=== PATIENT | male | born 1935 | race Caucasian/White ===

== ENCOUNTER → 2016-06-04 | Outpatient (CLI) | payer MEDICARE, OTHER ==
[2016-06-04 14:09] LABS: Appearance,Urine Clear (Clear); Bilirubin,Urine Negative (Negative); Glucose,Urine (UA) Negative (Negative); Ketones,Urine Negative (Negative); Leukocyte Esterase,Urine Negative (Negative); Nitrite,Urine Negative (Negative); PH, Urine 6.5 (5.0-8.0); Protein,Urine Negative (Negative); Specific Gravity,Urine 1.009 (1.001-1.035); UA Billing (MACRO vs. MICRO) CHEM; Urobilinogen,Urine <2.0 mg/dL (<2.0)
[2016-06-04 14:15] LABS: INR 1.1 (<1.1); Partial Thromboplastin Time 24.9 sec (22.0-30.0); Prothrombin Time 10.8 sec (9.0-12.0)
[2016-06-04 14:19] LABS: Basophils % (A) 1 %; CHCM 32.6; Eosinophils # (A) 0.1 k/uL (0-0.7); Eosinophils % (A) 1 %; HCT 45.6 % (39.0-53.0); HDW 2.33; HGB 14.3 gm/dL (13.0-17.5); Luc # (Auto) 0.23; Luc % (Auto) 3; Lymphocytes # (A) 1.3 k/uL (1.0-4.8); Lymphocytes % (A) 18 %; MCHC 31.4 g/dL (31.0-37.0); MCV 95.6 fL (80.0-100.0); Mean Platelet Volume 7.5; Monocytes # (A) 0.4 k/uL (0-1.0); Monocytes % (A) 6 %; Neutrophils % (A) 71 %; RBC 4.77 m/uL (4.30-5.90); RDW 13.2 % (11.5-15.5)
[2016-06-04 14:26] LABS: ALT 32 U/L (21-72); AST 29 U/L (17-59); Alkaline Phosphatase 72 U/L (38-126); Anion Gap 9 mmol/L; Blood Urea Nitrogen 20 mg/dL (9-20); Calcium 9.4 mg/dL (8.4-10.2); Carbon Dioxide 28 mmol/L (22-30); Chloride 101 mmol/L (98-107); Glucose 74 mg/dL (74-99); Non-African American GFR(MDRD) >60 (>60 ml/min/1.73 sqM); Potassium 4.5 mmol/L (3.5-5.1); Sodium 138 mmol/L (137-145); Total Bilirubin 0.9 mg/dL (0.2-1.3); Total Protein 6.8 g/dL (6.3-8.2)
== END | disposition home or self-care (01) ==
LOC: LABPAT 13:26
PROVIDERS: ATTEND Orthopaedic Surgery Sports Medicine
DX: Z01.812 Encounter for preprocedural laboratory examination (principal)
CPT/HCPCS: 80053; 81003; 85025; 85610; 85730; 87070

== ENCOUNTER 2016-06-12 09:40 | Inpatient (IN) | payer MEDICARE, OTHER ==
[2016-06-05 11:58] VITALS: BMI 27.2
--- NOTE | 2016-06-08 20:05 | CONS ---
DATE OF CONSULTATION: Consultation regarding preop medical evaluation. HISTORY OF PRESENT ILLNESS: This gentleman, 80-years of age is scheduled to undergo right shoulder arthroplasty. The patient has significant degenerative arthritis and has been scheduled for replacement of the joint. The patient is seen preoperatively. Past medical history is primarily significant for hyperlipidemia, hypothyroidism, history of depression on medical therapy controlled, history of BPH, varicose veins and previous thrombophlebitis and DVT. He has significant varicose veins. He does also have degenerative arthritis. Otherwise, no history of hypertension, diabetes, lung disease, liver disease, kidney disease, ulcers, TB, hepatitis, rheumatic fever. No history of myocardial infarction or CVA. PAST SURGICAL HISTORY: Significant for appendectomy, bilateral cataract surgery, C7 laminectomy, left ankle ORIF. PERSONAL HISTORY: Nonsmoker. Alcohol occasional. VACCINATIONS: Has refused. MEDICATIONS: 1. Zoloft 125 mg daily. 2. Wellbutrin SR 150 mg daily. 3. Aricept 5 mg daily. 4. Namenda 5 mg daily. 5. Levothyroxine 50 mcg daily. SOCIAL HISTORY: Patient is and lives with spouse. He stays fairly active. FAMILY MEDICAL HISTORY: Father at the age of 75 of history of unspecified lung condition. Mother at the age of 102 ASHD. The patient has a brother 78 in adequate health. He has 3 sons 56 and 45, 45 in all in good health. ALLERGIES: None known. REVIEW OF SYSTEMS: NEURO: Denies any headaches, dizziness. No double vision, blurred vision. No symptoms of TIA, syncope, seizures. PSYCH: History of anxiety, depression. CARDIAC: No chest pain, angina, palpitation. RESPIRATORY: No shortness of breath, cough, hemoptysis. GI: No nausea, vomiting, abdominal pain, diarrhea. : No symptoms of dysuria, hematuria, urgency, frequency. Some nocturia. EXTREMITIES: Denies edema. Does have some pain, especially at the right shoulder and multiple other arthritic symptoms. NEUROLOGICALLY: Awake, alert, oriented x3 with well coordinated movements. SKIN: Has some venostasis pigmentations. HEENT: Adequate hearing, smell, taste. EYES: Adequate vision. PHYSICAL EXAMINATION: Pleasant gentleman in no distress. Vital signs revealed blood pressure 120/70. He is 5 feet 9 inches tall, weighs 191 pounds, BMI 28.2. HEENT: Normocephalic. NECK: Supple. Pupils reactive. Nostrils clear. Oral cavity moist. Dentition maintained. Ears reveal no drainage. NECK: No JVD, carotid bruits, or thyromegaly. CHEST EXAMINATION: Clear to auscultation. Aortic sclerosis murmur with normally S1, S2. ABDOMEN: Soft, no palpable masses. Bowel sounds normal. No organomegaly. No abdominal bruits. EXTREMITIES: Trace edema at the ankles. NEUROLOGICALLY: Awake, not oriented x3 with well coordinated movements. Decreased to range of motion at the shoulder joint especially right. LABORATORY ASSESSMENT: Pending. Stress echo reveals good exercise tolerance, inconclusive EKG part of the stress due to baseline EKG abnormalities and negative stress echocardiogram at 81%. EKG revealed occasional PACs and complete right bundle-branch block. ASSESSMENT: 1. Hypothyroidism, on medical therapy. 2. History of chronic anxiety, depression, controlled. 3. Benign prostatic hypertrophy. 4. Degenerative arthritis. PLAN: The patient is stable. Continue present medical regimen. Patient is stable to undergo the planned surgical procedure. Patient not to take any medication on the morning of surgery. All nonsteroidals have been on hold prior to surgery.
[~2016-06-12 09:40] MED LIST: ACETAMINOPHEN TAB 500 MG TAB PO ONE; CLINDAMYCIN 900 MG in DEXTROSE 5% IN WATER 50 ML IVPB ONE; DEXAMETHASONE SOD PHOSPHATE 10 MG/ML 1 ML VIAL IV ONE; HYDROmorphone 1 MG/ML 1 ML SYRINGE IVP PRN; LIDOCAINE 1% 20 ML VIAL (10MG/ML) FOR IV START INTRADERMA PRN; MELOXICAM 7.5 MG TAB PO ONE; MIDAZOLAM 2 MG/2 ML VIAL IV PRN; ONDANSETRON 4 MG/2 ML VIAL IVP ONE; SCOPOLAMINE 1.5MG/72HR PATCH TRANSDERM ONE; TRANEXAMIC ACID 1,000 MG in SODIUM CHLORIDE 0.9% 100 ML IVPB ONE
[2016-06-12] MEDS ORDERED: LIDOCAINE 1% 20 ML VIAL (10MG/ML) FOR IV START INTRADERMA ONE (09:59)
[2016-06-12] MEDS: LACTATED RINGERS 1,000 ML IV SCH ×2 (10:00→17:42)
[2016-06-12] MEDS ORDERED: VANCOMYCIN 1,000 MG in SODIUM CHLORIDE 0.9% 250 ML IVPB STA (10:00)
[2016-06-12] MEDS ORDERED: ePHEDrine 50 MG/ML 1 ML AMP ONE (11:25)
[2016-06-12] MEDS ORDERED: SODIUM CHLORIDE 0.9% 100 ML BAG ONE (11:25)
[2016-06-12] MEDS ORDERED: GLYCOPYRROLATE 0.2 MG/ML 2 ML VIAL ONE (11:25)
[2016-06-12] MEDS ORDERED: MIDAZOLAM 2 MG/2 ML VIAL ONE (11:25)
[2016-06-12] MEDS ORDERED: PHENYLEPHRINE-0.9% NACL SYG 1 MG/10 ML SYRINGE ONE (11:25)
[2016-06-12] MEDS ORDERED: LIDOCAINE 1% INJ 10MG/ML (20 ML MDV) ONE (11:25)
[2016-06-12] MEDS ORDERED: ROCURONIUM BROMIDE 10 MG/ML 10 ML VIAL IV ONE (11:25)
[2016-06-12] MEDS ORDERED: fentaNYL (PF) 50 MCG/ML 2 ML AMP ONE (11:25)
[2016-06-12] MEDS ORDERED: PROPOFOL 10 MG/ML 20 ML VIAL IV ONE (11:25)
[2016-06-12] MEDS ORDERED: NEOSTIGMINE 1 MG/ML 10 ML VIAL ONE (11:25)
[2016-06-12] MEDS ORDERED: HYDROmorphone (PF) 1 MG/ML ONE (11:25)
[2016-06-12] MEDS ORDERED: TRANEXAMIC ACID 1,000 MG/10 ML VIAL ONE (11:25)
[2016-06-12] MEDS ORDERED: CLINDAMYCIN 1,800 MG in SODIUM CHLORIDE 0.9% IRRIGATIO 3,000 ML IRRIGATION ONE (12:33)
[2016-06-12] MEDS ORDERED: VANCOMYCIN 1,000 MG VIAL MISCELLANE ONE ×2 (12:46→13:10)
[2016-06-12] MEDS ORDERED: SENNOSIDES-DOCUSATE SODIUM 1 EACH TAB PO PRN (13:45)
[2016-06-12] MEDS ORDERED: HYDROcodone/APAP 5-325MG 1 EACH TAB PO PRN (13:45)
[2016-06-12] MEDS ORDERED: METOCLOPRAMIDE 5 MG/ML 2 ML VIAL IVP PRN (13:45)
[2016-06-12] MEDS ORDERED: diphenhydrAMINE 25 MG CAP PO PRN (13:45)
[2016-06-12] MEDS ORDERED: TEMAZEPAM 15 MG CAP PO PRN (13:45)
[2016-06-12] MEDS ORDERED: hydrOXYzine PAMOATE 25 MG CAP PO PRN (13:45)
[2016-06-12] MEDS ORDERED: ONDANSETRON 4 MG/2 ML VIAL IVP PRN (13:45)
[2016-06-12] MEDS ORDERED: HYDROmorphone 1 MG/ML 1 ML SYRINGE IVP PRN ×3 (13:45)
[2016-06-12] MEDS ORDERED: LACTATED RINGERS 1,000 ML IV ONE ×2 (13:47→14:42)
--- NOTE | 2016-06-12 14:32 | XR ---
Right shoulder HISTORY: Status post right shoulder arthroplasty Single frontal view of the right shoulder Patient is status post right shoulder arthroplasty. Indwelling drain is present. Alignment present on this single view. Lucency in the soft tissues compatible with postop state. IMPRESSION: Orthopedic follow-up.
[2016-06-12] MEDS ORDERED: .ACETAMINOPHEN IV (PEDS) 1,000 MG/100 ML VIAL IVPB ONE (14:35)
[2016-06-12] MEDS: HYDROcodone/APAP 5-325MG 1 EACH TAB PO PRN ×2 (17:39→23:34)
[2016-06-12 18:53] LABS: Basophils % (A) 0 %; CH 30.8; CHCM 32.9; Eosinophils % (A) 0 %; HCT 43.8 % (39.0-53.0); HDW 2.31; HGB 14.3 gm/dL (13.0-17.5); Luc # (Auto) 0.09; Luc % (Auto) 1; Lymphocytes # (A) 0.4 k/uL (1.0-4.8); Lymphocytes % (A) 5 %; MCH 30.6 pg (25.0-35.0); MCHC 32.6 g/dL (31.0-37.0); MCV 93.9 fL (80.0-100.0); Mean Platelet Volume 7.2; Monocytes # (A) 0.3 k/uL (0-1.0); Monocytes % (A) 3 %; Neutrophils # (A) 8.3 k/uL (1.3-7.7); Neutrophils % (A) 91 %; RBC 4.66 m/uL (4.30-5.90); RDW 13.1 % (11.5-15.5); WBC 9.1 k/uL (3.8-10.6); WBC (Perox) 9.29
[2016-06-12] MEDS: VANCOMYCIN 1,000 MG in SODIUM CHLORIDE 0.9% 250 ML IVPB SCH (22:23)
[2016-06-12] MEDS: DOXYCYCLINE 50 MG CAP PO SCH (22:24)
[2016-06-13] MEDS: LACTATED RINGERS 1,000 ML IV SCH ×4 (00:34→13:20)
[2016-06-13] MEDS ORDERED: oxyCODONE-APAP 5-325MG 1 EACH TAB PO PRN (00:50)
[2016-06-13] MEDS: LEVOTHYROXINE 50 MCG TAB PO SCH (06:03)
[2016-06-13] MEDS: oxyCODONE-APAP 5-325MG 1 EACH TAB PO PRN ×3 (06:13→17:28)
--- NOTE | 2016-06-13 08:38 | OP ---
DATE OF SERVICE: 06/12/2016 SURGEON: ERI ROBERT MD MAIN[employer] SYSTEMS PROGRAMMER: Ulysses Hill PA-C. PREOPERATIVE DIAGNOSIS: Right shoulder advanced rotator cuff arthropathy. POSTOPERATIVE DIAGNOSIS: Right shoulder advanced rotator cuff arthropathy. OPERATION: Right reverse total shoulder arthroplasty. ANESTHESIA: General endotracheal. ESTIMATED BLOOD LOSS: 300 mL. SPECIMENS REMOVED: COMPLICATIONS: None apparent. DRAINS: 1 deep drain. DISPOSITION: Postanesthesia care unit. OPERATIVE FINDINGS: INDICATIONS: Mr. Ramsey is a very pleasant 80-year-old male with long-standing right shoulder pain. Work-up including x-rays and a CT scan revealed advanced rotator cuff arthropathy of the right shoulder. At this point, he feels he has failed conservative management and would like to proceed with operative intervention. The risks of the procedure were discussed with him in detail. These risks include, but are not limited to risk of infection, nerve damage, bleeding, pain, instability in the shoulder, loosening of implants and deep infection. There is also a small risk of deep vein thrombosis, which could lead to fatal pulmonary embolism. The patient understood the risks. All of his questions with regards to the risks of the procedure were answered to his satisfaction. Under appropriate informed consent was obtained. DESCRIPTION OF THE PROCEDURE: The patient was identified in the preoperative holding area. Surgical site was marked by both the patient and myself. He was given 1 gram of vancomycin IV for prophylactic purposes. He was then transferred to the operative suite where he was placed supine on the operating room table. General anesthetic was administered dosed per the Anesthesia Department without apparent complication. Examination under anesthesia was then performed of the right shoulder. He had passive elevation to 120 degrees with external rotation to side was to 30 degrees. The patient was then placed into a modified beach chair position. Great care was taken to insure that his cervical spine was well padded in neurtral alignment and maintained that way throughout the entire procedure. Great care was also taken to insure that his legs were appropriately padded as well. Patient's right upper extremity was then prepped and draped usual sterile fashion. Standard surgical pause was then undertaken to ensure that were operating on correct site and that appropriate preoperative antibiotics had been given. All staff in the room were in agreement and we proceeded. The acromion, AC joint, clavicle, and coracoid were marked with a surgical pen. A planned incision starting at the level of clavicle and extending distally over the deltopectoral interval approximately 1 cm lateral to the coracoid was marked with a surgical pen. The incision was then made with a 10 blade scalpel. Dissection was carried down sharply to the deltoid fascia. The deltopectoral interval was clearly identified at the level of the clavicle. A small band retractor was then placed on the proximal deltoid. I then released the deltoid fascia on the lateral aspect of the cephalic vein. The vein was preserved and left in its bed medially. The cephalic vein was protected throughout the remainder of the entire case. I then identified the clavipectoral fascia. This was incised proximally to the level of the coracoacromial ligament on the lateral aspect of the conjoined tendon. The coracoacromial ligament was left intact. I then used my finger to spread the interval between the conjoined tendon and the subscapularis. I felt for the axillary nerve, which was readily palpable. I then cleared the subacromial and subdeltoid spaces of bursal and scar tissue. I then utilized a brown retractor to hold the deltoid and expose the humeral head. I then proceeded with release of the subscapularis in the anterior-inferior capsule. The subscapularis was nearly completely torn. He had just an inferior one third of the subscapularis remaining. The capsule was very hypertrophic and he had significant joint synovitis secondary to his long-standing rotator cuff arthropathy. The entire the superior aspect of the humeral head was completely devoid of any semblance of rotator cuff. I then proceeded with release of the remaining subscapularis in the anterior-inferior capsule. The rotator cuff was then biceps tendon. Of note the biceps tendon was also chronically ruptured and not able to be identified. The subscapularis and capsule were then released intratendinously. The capsule release extended distally in a lazy S fashion, approximately 1 cm medial to the bicipital groove. I then continued to release the capsule along the inferior neck in a vertical fashion to approximately 6 o'clock position. Great care was to ensure that the capsule was always visualized. It was released off of the bone to avoid injuring the axillary nerve. I then brought a Perez line assembler with the arm externally rotated and abducted. I continued to release the capsule inferomedially to the 4 o'clock position. The inferior osteophytes were now removed as well. This was done with rongeur. I then proceeded with preparation of the humerus. I removed all the goat's potts osteophytes. I then removed the subchondral plate from the superior aspect of the humeral head using a large rongeur. I then used a starter reamer to gain access to the humeral canal. This was approximately 1 cm medial to the rotator cuff insertion and 1 cm posterior to the bicipital groove. I then prepared the humeral canal with hand reaming. I started with a 6 mm reamer and progressed in 2 mm increments until firm resistance was encountered. This was at 11 mm. The reamer handle was then left in place. I then utilized the humeral resection guide. This was set at 30 degrees of retrotorsion. The cutting block was then set at the insertion of the rotator cuff. I then proceeded to osteotomize the head with an oscillating saw. I removed the resection guide and then completed the osteotomy. I then proceeded with trial stem placement. Size 11 trial was then broached and the canal starting with 6 mm broach up to an 11 mm broach. An 11 mm trial stem was then placed and left in place. I then proceeded with exposure of the glenoid. I inspected the joint for any loose bodies. The Bhattman retractor was then placed on the posterior glenoid rim. The arm was then placed in approximately 70 degrees of abduction and in slight flexion on the Perez stand. I then proceeded to remove the hypertrophic labrum to definitively identify the actual glenoid. I then marked the center aspect of the glenoid. The guide with 10 degrees of inferior tilt was then placed flush on the glenoid. I then placed a starting pin in the center of the glenoid just slightly inferior to the center of the glenoid with a 10 degree inferior tilt. I then proceeded with reaming. The baseplate reamer was then placed over the starting pin. This was advanced until it was flush with the glenoid. This preferentially resected more inferior bone then superior bone due to the slight inferior tilt. I then placed a standard baseplate. This was then seated flush with the ream glenoid. I then placed a 35 mm central screw. This screw had an excellent purchase in bone. I was able to rotate the scapula after the central screw was placed. I then proceeded to place the peripheral locking screws. The superior and inferior screws were 20 mm and the anterior and posterior screws were 15 mm. I then proceeded to place a size 41 glenosphere. This was preferentially dialed down in offset to inferiorly to place the humeral head as inferior as possible. The Arnett taper was then dried and the glenosphere was then impacted into the baseplate. I then checked the glenosphere and it was securely impacted. I then proceeded to deliver the humeral head from the wound again. A size 41 standard baseplate was then placed onto the trial stem. The shoulder was then reduced. As it was a fairly difficult reduction. It was very stable once it was once reduced. He had good motion. There was no evidence of impingement. I decided to go forward with a standard tray and standard poly. A bone hook was then utilized to re- dislocate the shoulder. Again, the proximal humerus was delivered from the wound. The wound was thoroughly irrigated with sterile saline solution with antibiotic added. I then impacted size 11 mini stem, and 30 degrees of retrotorsion. I then impacted the standard tray and standard poly onto the Arnett taper of the stem. The shoulder was then reduced again. Again it was a fairly difficult reduction. The tension was excellent. He had minimal shuck. The conjoined tendon was inspected and there was no undue tension on the conjoined tendon to signify that I over lengthen the arm. The shoulder was very stable throughout a range of motion. He had no evidence of impingement either. Again, the wound was thoroughly irrigated with sterile saline solution with antibiotic added. A deep drain was then placed and brought out superiorly away from the incision. I then placed vancomycin powder within the wound. The deltopectoral interval was then closed with 0 Vicryl interrupted suture. Prior to closure I did palpate the axillary nerve which was intact. I then closed the deltopectoral interval with interrupted 0 Vicryl suture. Again, the wound was thoroughly irrigated and then a second level of vancomycin powder was then placed into the wound. Subcutaneous tissue was closed with 2-0 Vicryl interrupted suture and the skin was closed with a running 3-0 Quill suture. Dermabond was then applied to the incision. Sterile compressive dressings were then applied. The patient's right upper extremity was placed into a standard sling. All sponge and needle counts were deemed correct prior to closure. The patient tolerated the procedure without apparent complication. He was transferred to recovery room in stable condition. Components were Biomet comprehensive reverse total shoulder arthroplasty; 11 mini stem, standard tray, standard poly, standard baseplate and 41 mm glenosphere. [facility]
[2016-06-13] MEDS: DOXYCYCLINE 50 MG CAP PO SCH ×2 (09:02→22:03)
[2016-06-13] MEDS: VANCOMYCIN 1,000 MG in SODIUM CHLORIDE 0.9% 250 ML IVPB SCH (09:02)
--- NOTE | 2016-06-13 10:34 | P.PN ---
Subjective Principal diagnosis: Status post right total shoulder arthroplasty Patient is a pleasant 80-year-old male seen at bedside this morning. He is postop day #1 from right total shoulder arthroplasty/reverse total shoulder arthroplasty per Dr. Alamo. His pain is mostly controlled at the surgical site. He has no new complaints. He denies numbness, tingling or weakness. Review of systems is negative for fever, chills, chest pain, shortness breath, nausea, vomiting, headaches, slurred speech or other. Objective - Vital Signs Vital signs: Vital Signs Temp 97.1 F L 06/13/16 07:00 Pulse 58 L 06/13/16 07:14 Resp 16 06/13/16 07:14 BP 106/61 06/13/16 07:00 Pulse Ox 95 06/13/16 07:00 Intake & Output 06/12/16 06/13/16 06/13/16 18:59 06:59 18:59 Intake Total 4652 Output Total 300 100 100 Balance 4352 -100 -100 Weight 82.554 kg Intake: IV 4412 Oral 240 Output: Urine 100 100 Estimated Blood Loss 300 - Exam Inspection of the right shoulder reveals a benign surgical wound. There is no active bleeding, drainage or dehiscence. Sensation to light touch is intact throughout the right upper extremity. Motor is intact at the elbow, wrist and hand. 2+ radial pulses are present and less than 2 second cap refill is present. - Constitutional General appearance: Present: no acute distress - Psychiatric Psychiatric: Present: A&O x's 3, appropriate affect, intact judgment & insight - Labs CBC & Chem 7: 06/12/16 18:35 Labs: Abnormal Lab Results - Last 24 Hours (Table) 06/12/16 Range/Units 18:35 Neutrophils # 8.3 H (1.3-7.7) k/uL Lymphocytes # 0.4 L (1.0-4.8) k/uL Assessment and Plan (1) Osteoarthritis of right shoulder Narrative/Plan: Patient will continue with routine postop orthopedic protocol including wound care, pain management, DVT prophylaxis and medical management. Drain was discontinued and new bandage was placed without complication. Plan will be for him to discharge to home tomorrow, 06/14/2016, and follow up with Dr. Alamo in office in 2 weeks Status: Acute Time with Patient: Less than 30
--- NOTE | 2016-06-13 11:25 | PN ---
CHIEF COMPLAINT: Postop management. HISTORY OF PRESENT ILLNESS: This is an 80-year-old gentleman who is status post right shoulder arthroplasty. He has had a previous history of degenerative arthritis. He is actually feeling fairly well. He does have underlying history of mild hypertension and chronic depression. The patient has also been on Aricept and Namenda from his psychiatrist with no evidence of any cognitive impairment. REVIEW OF SYSTEMS: NEURO: Denies any headaches, dizziness. PSYCH: No anxiety. CARDIAC: No chest pain, angina, palpitations. RESPIRATORY: No shortness breath, cough, hemoptysis. GI: No nausea, vomiting, abdominal pain, diarrhea. : No symptoms of dysuria or hematuria frequency. EXTREMITIES: Denies pain or edema. CONSTITUTIONAL: No fever, chills. PHYSICAL EXAMINATION: Pleasant gentleman in no distress. Vital signs reveal patient has been afebrile, pulse rate was 127 at 4:30, however, later at the time of my evaluation the patient's pulse rate was 72, blood pressure 118/68. HEENT: Normocephalic. NECK: No JVD. Chest is clear to auscultation. CARDIAC: Normal S1, S2 with no gallops, murmurs. ABDOMEN: Soft. Bowel sounds present. EXTREMITIES: No edema. No tenderness. NEUROLOGIC: Awake, alert, oriented with well coordinated movements of left upper extremity and lower extremities. LABORATORY ASSESSMENT: CBC which was normal. ASSESSMENT: 1. History of hyperlipidemia and hypothyroidism, controlled. 2. Depression on medical therapy controlled. PLAN: Continue present medical regimen. Patient's condition was discussed with the patient. Early ambulation due to history of DVT.
[2016-06-14 04:13] VITALS: PULSE 74; RESP 16
[2016-06-14] MEDS: LACTATED RINGERS 1,000 ML IV SCH ×2 (05:00→05:01)
[2016-06-14] MEDS: LEVOTHYROXINE 50 MCG TAB PO SCH (05:46)
[2016-06-14] MEDS: oxyCODONE-APAP 5-325MG 1 EACH TAB PO PRN ×2 (06:29→11:34)
[2016-06-14] MEDS: DOXYCYCLINE 50 MG CAP PO SCH (07:29)
[2016-06-14 08:13] VITALS: BP 113/60; TEMP 97.7
[2016-06-14] MEDS ORDERED: SERTRALINE 25 MG TAB PO SCH (09:00)
[2016-06-14] MEDS ORDERED: buPROPion SR 150 MG TABLET.ER PO SCH (09:00)
[2016-06-14] MEDS ORDERED: MEMANTINE 5 MG TAB PO SCH (09:00)
[2016-06-14] MEDS ORDERED: SERTRALINE 50 MG TAB PO SCH (09:00)
--- NOTE | 2016-06-14 10:28 | P.DS ---
Providers Date of admission: 06/12/16 09:40 Expected date of discharge: 06/14/16 Attending physician: Leon Alamo Consults: 06/12/16 13:45 Consult Physician Routine Consulting Provider: Kadeem Garcia Consult Reason/Comments: post op medical management Do you want consulting provider notified?: Yes Primary care physician: Kadeem Garcia - Discharge Diagnosis(es) (1) Osteoarthritis of right shoulder Current Visit: Yes Status: Acute Priority: Medium Hospital Course: This is a pleasant 80-year-old male who presented with right shoulder advanced rotator cuff arthropathyr who failed outpatient conservative therapy. He admitted for a right reverse total shoulder arthroplasty performed by Dr. Leon Alamo. The patient tolerated the procedure well and did well postoperatively. Condition on day of discharge stable. Patient will be discharged home. Patient was cleared preoperatively for surgery by Dr. Garcia. Patient currently denies any nausea, vomiting, fever, or chills. Patient is eating and voiding freely without difficulty. Patient states he has not had a bowel movement since being started on narcotics but is passing gas. He does have mild abdominal distention but no pain. He has been taking a stool softener while here in the hospital. Patient states he is ready for discharge home. Patient should remain nonweightbearing on the right upper extremity. He may remove dressing and shower 72 hours after discharge. He should maintain a sling to right upper extremity at all times. He'll plan to follow up with Dr. Leon Alamo in the office on 06/26/2016 and 9:30 AM. He is given prescriptions for Percocet 5/325 mg 1 tab every 4 hours as needed for pain, doxycycline hyclate 10mg by mouth twice a day, and Senokot 1 tab twice a day. Physical Exam on day of discharge: Patient is awake, alert, and oriented 3 Vital signs stable Good chest excursion with deep inspiration and expiration Abdomen soft nontender No signs or symptoms of DVT; no calf pain Dressing intact at the surgical site over the right shoulder; dressing is clean , dry, and intact Sling in place right upper extremity Active range of motion of the right elbow without significant difficulty Active full range of motion of the thumb on the fingers, and risks of the right upper extremity without difficulty Neurovascular intact right upper extremity Bander Hand strength, thumb strength, interosseous strength, biceps strength, triceps strength, and shoulder strength positive sustained on the left Procedures: Right reverse total shoulder arthroplasty Patient Condition at Discharge: Stable Plan - Discharge Summary New Discharge Prescriptions: Doxycycline Hyclate 100 mg PO BID #10 tab Sennosides-Docusate Sodium [Senokot-S] 1 tab PO BID PRN #60 tablet PRN Reason: Constipation oxyCODONE-APAP 5-325MG [Percocet 5-325 mg] 1 tab PO Q4HR PRN #60 tab PRN Reason: Pain Discharge Medication List Advanced Memory Formula 1 tab PO DAILY 06/05/16 [History] Bacillus Coagulans [Digestive Advantage] 1 tab PO DAILY 06/05/16 [History] Cyanocobalamin (Vitamin B-12) [Vitamin B-12] 2,000 mcg PO DAILY 06/05/16 [ History] Donepezil [Aricept] 5 mg PO HS 06/05/16 [History] Krill Oil 500 mg PO DAILY 06/05/16 [History] Levothyroxine Sodium [Synthroid] 50 mcg PO DAILY 06/05/16 [History] Jamil Red 1 tab PO DAILY 06/05/16 [History] Memantine [Namenda] 5 mg PO DAILY 06/05/16 [History] Super Joint Support 1 tab PO DAILY 06/05/16 [History] Vitamin B Complex 1 cap PO DAILY 06/05/16 [History] Vitamin E (Dl,Tocopheryl Acet) [Vitamin E] 400 unit PO DAILY 06/05/16 [History] buPROPion SR [Wellbutrin Sr] 150 mg PO DAILY 06/05/16 [History] Sertraline HCl [Zoloft] 25 mg PO DAILY 06/12/16 [History] Sertraline HCl [Zoloft] 50 mg PO DAILY 06/12/16 [History] Doxycycline Hyclate 100 mg PO BID #10 tab 06/13/16 [Rx] oxyCODONE-APAP 5-325MG [Percocet 5-325 mg] 1 tab PO Q4HR PRN #60 tab 06/13/16 [ Rx] Sennosides-Docusate Sodium [Senokot-S] 1 tab PO BID PRN #60 tablet 06/14/16 [Rx] Follow up Appointment(s)/Referral(s): Leon Alamo MD [STAFF PHYSICIAN] - 06/26/16 9:30 am Activity/Diet/Wound Care/Special Instructions: Keep wound clean and dry Take meds as directed Follow up with Dr. Alamo in office, [phone] Nonweightbearing right upper extremity May shower in 72 hours Discharge Disposition: HOME SELF-CARE
[2016-06-14] MEDS ORDERED: DONEPEZIL 5 MG TAB PO SCH (21:00)
== END 2016-06-14 11:45 | disposition home or self-care (01) | DRG 483 ==
LOC: 2ORMAIN 09:40 → 3SUR 13:50
PROVIDERS: ADMIT Orthopaedic Surgery Sports Medicine; ATTEND Orthopaedic Surgery Sports Medicine
PROC: 0RRJ00Z Replacement of Right Shoulder Joint with Reverse Ball and Socket Synthetic Substitute, Open Approach (ICD-10-PCS; principal; 2016-06-12 11:00)
DX: M19.011 Primary osteoarthritis, right shoulder (principal); I10 Essential (primary) hypertension; M75.121 Complete rotator cuff tear or rupture of right shoulder, not specified as traumatic; F32.9 Major depressive disorder, single episode, unspecified; E03.9 Hypothyroidism, unspecified; E78.5 Hyperlipidemia, unspecified; G47.30 Sleep apnea, unspecified; N40.0 Benign prostatic hyperplasia without lower urinary tract symptoms; Z82.49 Family history of ischemic heart disease and other diseases of the circulatory system; Z86.72 Personal history of thrombophlebitis; Z86.718 Personal history of other venous thrombosis and embolism; Z79.899 Other long term (current) drug therapy; Z88.0 Allergy status to penicillin
CPT/HCPCS: 85025

== ENCOUNTER 2016-08-03 13:14 | Emergency (ER) | payer MEDICARE, OTHER ==
[2016-08-03 13:20] VITALS: BP 150/82; PULSE 64; RESP 18; TEMP 98.1
[2016-08-03] MEDS ORDERED: Acetaminophen-Codeine 300-30mg TAB PO STA (13:34)
--- NOTE | 2016-08-03 13:51 | XR ---
EXAMINATION TYPE: XR shoulder complete RT DATE OF EXAM: 08/03/2016 1:43 PM COMPARISON: 06/12/2016 HISTORY: Postop. Pain. TECHNIQUE: 3 views FINDINGS: There is a right shoulder prosthesis. Components are in anatomic position. I see no fractur e. IMPRESSION: No complicating process seen. No change in position compared to last exam.
--- NOTE | 2016-08-03 13:52 | ED ---
Upper Extremity HPI - General Chief Complaint: Extremity Injury, Upper Stated Complaint: Shoulder Pain Time Seen by Provider: 08/03/16 13:22 Source: patient Mode of arrival: ambulatory Limitations: no limitations - History of Present Illness Initial Comments: 80 male presents to the ER with his after hearing a popping sensation when he was putting on his coat today followed by immediate pain. He states that the pain is moderate to severe in nature. He did have a shoulder surgery by Dr. Leon Alamo 7 weeks ago. He states that he is currently in physical therapy. He states that at this point he is unable to move his shoulder due to pain he does have full range of motion at his elbow. He states that he did take an Aleve this morning but is still in a great deal of pain. He denies any constitutional symptoms including headache, chest pain, shortness of breath, abdominal pain, nausea, vomiting. He states that there was no trauma just a reaching back motion caused a popping sensation that he did hear. MD Complaint: Injury to:: right, shoulder - Related Data Home Medications Medication Instructions Recorded Confirmed Advanced Memory Formula 1 tab PO DAILY 06/05/16 06/12/16 Bacillus Coagulans [Digestive 1 tab PO DAILY 06/05/16 06/12/16 Advantage] Cyanocobalamin (Vitamin B-12) 2,000 mcg PO DAILY 06/05/16 06/12/16 [Vitamin B-12] Donepezil [Aricept] 5 mg PO HS 06/05/16 06/12/16 Krill Oil 500 mg PO DAILY 06/05/16 06/12/16 Levothyroxine Sodium [Synthroid] 50 mcg PO DAILY 06/05/16 06/12/16 Jamil Red 1 tab PO DAILY 06/05/16 06/12/16 Memantine [Namenda] 5 mg PO DAILY 06/05/16 06/12/16 Super Joint Support 1 tab PO DAILY 06/05/16 06/12/16 Vitamin B Complex 1 cap PO DAILY 06/05/16 06/12/16 Vitamin E (Dl,Tocopheryl Acet) 400 unit PO DAILY 06/05/16 06/12/16 [Vitamin E] buPROPion SR [Wellbutrin Sr] 150 mg PO DAILY 06/05/16 06/12/16 Sertraline HCl [Zoloft] 25 mg PO DAILY 06/12/16 06/12/16 Sertraline HCl [Zoloft] 50 mg PO DAILY 06/12/16 06/12/16 Previous Rx's Medication Instructions Recorded Doxycycline Hyclate 100 mg PO BID #10 tab 06/13/16 oxyCODONE-APAP 5-325MG [Percocet 1 tab PO Q4HR PRN #60 tab 06/13/16 5-325 mg] Sennosides-Docusate Sodium 1 tab PO BID PRN #60 tablet 06/14/16 [Senokot-S] Allergies Allergy/AdvReac Type Severity Reaction Status Date / Time Penicillins Allergy Unknown Verified 08/03/16 13:20 Review of Systems ROS Statement: Those systems with pertinent positive or pertinent negative responses have been documented in the HPI. ROS Other: All systems not noted in ROS Statement are negative. Past Medical History Past Medical History: Deep Vein Thrombosis (DVT), Memory Impairment, Osteoarthritis (OA), Sleep Apnea/CPAP/BIPAP, Thyroid Disorder Additional Past Medical History / Comment(s): hx. DVT right thigh, uses CPAP, fell & fx. pelvis 2014 History of Any Multi-Drug Resistant Organisms: None Reported Past Surgical History: Appendectomy, Orthopedic Surgery Additional Past Surgical History / Comment(s): cervical surg, cataract surg., repair left tibial fx. 2011 Past Anesthesia/Blood Transfusion Reactions: No Reported Reaction Past Psychological History: No Psychological Hx Reported Smoking Status: Never smoker Past Alcohol Use History: Daily Additional Past Alcohol Use History / Comment(s): 1-2 drinks/day Past Drug Use History: None Reported - Past Family History Mother Family Medical History: No Reported History Additional Family Medical History / Comment(s): at 102 General Exam Limitations: no limitations General appearance: alert, in distress (Secondary to pain) Head exam: Present: atraumatic, normocephalic Eye exam: Present: normal appearance, PERRL, EOMI Pupils: Present: normal accommodation Neck exam: Present: normal inspection Respiratory exam: Present: normal lung sounds bilaterally Cardiovascular Exam: Present: regular rate, normal rhythm Extremities exam: Present: normal capillary refill, other (Unable to evaluate range of motion patient refuses to move arm secondary to pain. Dermatology Specialist strength is intact bilaterally. Neurovascular status intact bilaterally. Patient does have tenderness on the anterior shoulder.) Neurological exam: Present: alert, oriented X3, CN II-XII intact Psychiatric exam: Present: normal affect, normal mood Skin exam: Present: warm, dry, intact Course Vital Signs 08/03/16 13:17 Temperature 98.1 F Pulse Rate 64 Respiratory 18 Rate Blood Pressure 150/82 O2 Sat by Pulse 97 Oximetry Medical Decision Making - Medical Decision Making 80-year-old male presented to the ER with his after a popping sensation in his right shoulder while putting on his jacket followed by intense pain. He did have surgery several weeks ago. He is unable to move his shoulder secondary to pain will evaluate with x-ray. She was given a Tylenol 3 to help with discomfort. X-ray was reviewed and there was no acute process identified. The radiologist compared his x-ray images to previous on file. He states that there was no movement of the prosthesis from this point. He states his is no fracture or subluxation or dislocation. Images were also reviewed. A CD was made of these images that the patient could review these with his orthopedic surgeon. Patient was instructed to ice and rest his shoulder. He will follow up with his orthopedic doctor tomorrow. He was also offered pain medication however he does have some at home from his surgical procedure. All questions were answered patient is agreeable to treatment plan to return to the ER with any worsening symptoms or concerns. Patient was offered a sling however he felt that he did not need this. Discharged in stable condition. Disposition Clinical Impression: Right shoulder strain Disposition: HOME SELF-CARE Condition: Good Instructions: Shoulder Pain (ED) Additional Instructions: To follow-up with orthopedic surgeon this week. Return to the ER if any worsening symptoms or concerns. Referrals: Kadeem Garcia MD [Primary Care Provider] - 1-2 days Leon Alamo MD [STAFF PHYSICIAN] - 1-2 days Time of Disposition: 14:02
== END 2016-08-03 14:10 | disposition home or self-care (01) ==
LOC: EC 13:14
DX: S46.911A Strain of unspecified muscle, fascia and tendon at shoulder and upper arm level, right arm, initial encounter (principal); E07.9 Disorder of thyroid, unspecified; G31.84 Mild cognitive impairment of uncertain or unknown etiology; M19.90 Unspecified osteoarthritis, unspecified site; Z86.718 Personal history of other venous thrombosis and embolism; Z98.890 Other specified postprocedural states; Z79.899 Other long term (current) drug therapy; X50.9XXA Other and unspecified overexertion or strenuous movements or postures, initial encounter; Y93.89 Activity, other specified
CPT/HCPCS: 99283

== ENCOUNTER → 2016-08-14 | Outpatient (CLI) | payer MEDICARE, OTHER ==
--- NOTE | 2016-08-14 15:55 | CT ---
EXAMINATION TYPE: CT shoulder RT wo con DATE OF EXAM: 08/14/2016 3:43 PM COMPARISON: February 28, 2016 HISTORY: Right shoulder pain post fall CT DLP: 372.[address] of the right shoulder with reconstruction imaging. TECHNIQUE: Unenhanced CT of the right shoulder was performed with bone and soft tissue window setting s submitted in the axial coronal and sagittal planes. Streak artifact from the patient's right proxim al glenohumeral prosthesis limits evaluation. FINDINGS: Streak artifact from the patient's right proximal glenohumeral prosthesis limits evaluation. Glenohum eral prosthesis appears to be well seated. There is mildly comminuted minimally displaced acromial fr acture. Displacement is estimated at 1 mm. There is no evidence for extension into the acromioclavicu lar joint. The remainder of the right scapula is grossly intact. No additional fracture seen within t he [id number]. Visualized portions of the right lung demonstrate right apical scarring. IMPRESSION: 1. Mildly comminuted minimally displaced acromial fracture.
== END | disposition home or self-care (01) ==
LOC: RADCTMAIN 15:19
PROVIDERS: ATTEND Orthopaedic Surgery Sports Medicine
DX: S42.031A Displaced fracture of lateral end of right clavicle, initial encounter for closed fracture (principal); M19.012 Primary osteoarthritis, left shoulder; M75.102 Unspecified rotator cuff tear or rupture of left shoulder, not specified as traumatic; Z96.611 Presence of right artificial shoulder joint

== ENCOUNTER 2017-04-05 14:14 | Emergency (ER) | payer MEDICARE, OTHER ==
[2017-04-05 14:22] VITALS: RESP 18
--- NOTE | 2017-04-05 14:43 | ED ---
Fall HPI - General Chief Complaint: Fall Stated Complaint: Fall Time Seen by Provider: 04/05/17 14:30 Source: patient Mode of arrival: ambulatory - History of Present Illness Initial Comments: 81-year-old male patient presents to the emergency department today for evaluation of right posterior thigh discomfort and ecchymosis. Patient states that he did have a fall proximal he 5 days ago. He states he has been having pain to the area since then he says that he has been having significant right leg swelling that is worse today. He states he is unable to bend forward at the waist without significant discomfort. He denies any numbness or tingling in the leg. He denies hitting his head or losing consciousness during the fall. States he does also have some right shoulder discomfort her this is chronic pain from his previous scapula fracture. He denies any new injury to the shoulder. Patient denies any headache, neck pain, back pain, chest pain, shortness of breath, dizziness, weakness, abdominal pain, nausea, vomiting, or difficulties with bowel movements or urination. Patient reports that he was diagnosed with a blood clot to the right upper leg several months ago but only took 2 weeks of the Xarelto then stopped because he was not having any symptoms. - Related Data Home Medications Medication Instructions Recorded Confirmed Advanced Memory Formula 1 tab PO DAILY 06/05/16 08/03/16 Bacillus Coagulans [Digestive 1 tab PO DAILY 06/05/16 08/03/16 Advantage] Cyanocobalamin (Vitamin B-12) 2,000 mcg PO DAILY 06/05/16 08/03/16 [Vitamin B-12] Donepezil [Aricept] 5 mg PO HS 06/05/16 08/03/16 Krill Oil 500 mg PO DAILY 06/05/16 08/03/16 Levothyroxine Sodium [Synthroid] 50 mcg PO DAILY 06/05/16 08/03/16 Jamil Red 1 tab PO DAILY 06/05/16 08/03/16 Memantine [Namenda] 5 mg PO DAILY 06/05/16 08/03/16 Super Joint Support 1 tab PO DAILY 06/05/16 08/03/16 Vitamin B Complex 1 cap PO DAILY 06/05/16 08/03/16 Vitamin E (Dl,Tocopheryl Acet) 400 unit PO DAILY 06/05/16 08/03/16 [Vitamin E] buPROPion SR [Wellbutrin Sr] 150 mg PO DAILY 06/05/16 08/03/16 Sertraline HCl [Zoloft] 25 mg PO DAILY 06/12/16 08/03/16 Sertraline HCl [Zoloft] 50 mg PO DAILY 06/12/16 08/03/16 Previous Rx's Medication Instructions Recorded Doxycycline Hyclate 100 mg PO BID #10 tab 06/13/16 oxyCODONE-APAP 5-325MG [Percocet 1 tab PO Q4HR PRN #60 tab 06/13/16 5-325 mg] Sennosides-Docusate Sodium 1 tab PO BID PRN #60 tablet 06/14/16 [Senokot-S] Allergies Allergy/AdvReac Type Severity Reaction Status Date / Time Penicillins Allergy Unknown Verified 04/05/17 14:22 Review of Systems ROS Statement: Those systems with pertinent positive or pertinent negative responses have been documented in the HPI. ROS Other: All systems not noted in ROS Statement are negative. Past Medical History Past Medical History: Deep Vein Thrombosis (DVT), Memory Impairment, Osteoarthritis (OA), Sleep Apnea/CPAP/BIPAP, Thyroid Disorder Additional Past Medical History / Comment(s): hx. DVT right thigh, uses CPAP, fell & fx. pelvis 2014 History of Any Multi-Drug Resistant Organisms: None Reported Past Surgical History: Appendectomy, Orthopedic Surgery Additional Past Surgical History / Comment(s): cervical surg, cataract surg., repair left tibial fx. 2011, shoulder surgery Past Anesthesia/Blood Transfusion Reactions: No Reported Reaction Past Psychological History: No Psychological Hx Reported Smoking Status: Never smoker Past Alcohol Use History: Daily Past Drug Use History: None Reported - Past Family History Mother Family Medical History: No Reported History Additional Family Medical History / Comment(s): at 102 General Exam Limitations: no limitations General appearance: alert, in no apparent distress, other (This is a well- developed, well-nourished elderly male patient in no acute distress. Vital signs upon presentation were temperature 97.7F, pulse 70, respirations 18, blood pressure 138/64, pulse ox 99% on room air.) Eye exam: Present: normal appearance, PERRL, EOMI. Absent: scleral icterus, conjunctival injection, periorbital swelling ENT exam: Present: normal exam, normal oropharynx, mucous membranes moist Neck exam: Present: normal inspection. Absent: tenderness, meningismus, lymphadenopathy Respiratory exam: Present: normal lung sounds bilaterally. Absent: respiratory distress, wheezes, rales, rhonchi, stridor Cardiovascular Exam: Present: regular rate, normal rhythm, normal heart sounds. Absent: systolic murmur, diastolic murmur, rubs, gallop, clicks GI/Abdominal exam: Present: soft, normal bowel sounds. Absent: distended, tenderness, guarding, rebound, rigid Extremities exam: Present: full ROM, tenderness (Tenderness over the posterior thigh), normal capillary refill, other (Patient has a 2+ pitting edema to the right lower extremity. There is a large area of ecchymosis covering the entire posterior surface of the right thigh. Skin is otherwise pink, warm, and dry. Cap refills less than 3 seconds. Pedal pulses are 2+ and equal bilaterally.). Absent: normal inspection, pedal edema, joint swelling, calf tenderness Back exam: Present: normal inspection. Absent: tenderness, vertebral tenderness Neurological exam: Present: alert, oriented X3, CN II-XII intact Psychiatric exam: Present: normal affect, normal mood Skin exam: Present: warm, dry, intact, normal color. Absent: rash Course Vital Signs 04/05/17 04/05/17 14:18 16:13 Temperature 97.7 F 98.0 F Pulse Rate 70 68 Respiratory 18 18 Rate Blood Pressure 138/64 149/74 O2 Sat by Pulse 99 98 Oximetry Medical Decision Making - Medical Decision Making 81-year-old male patient presented to the emergency department today for complaints of right leg swelling and posterior thigh ecchymosis. Physical examination did reveal extensive ecchymosis to the posterior thigh. Patient did have some mild soft tissue tenderness over the area. Patient did not exhibit any bony, numbness over the femur, knee, or tib-fib. Patient is able to ambulate without much difficulty. Ultrasound of the right lower, he was obtained and was negative for any evidence of DVT. Patient will be discharged home at this time to follow-up with orthopedics if he continues to have problems. He is instructed to elevate the extremity. He refused any prescription for pain medication. He is instructed to return here immediately if he develops any new, worsening, or concerning symptoms. He verbalizes understanding and agrees with this plan. - Radiology Data Radiology results: report reviewed, image reviewed Ultrasound of the right leg was obtained, report was reviewed in its entirety. Impression by Dr. Mcguire shows no sonographic evidence of deep venous thrombosis within the right lower extremity. Disposition Clinical Impression: Contusion of right leg, Traumatic ecchymosis of right thigh Disposition: HOME SELF-CARE Condition: Good Instructions: Contusion in Adults (ED), Fall Prevention (ED) Additional Instructions: Apply ice to the posterior thigh. Keep leg elevated. Follow-up with Dr. Alamo for recheck in 1-2 days. Return here immediately for any new, worsening , or concerning symptoms. Referrals: Kadeem Garcia MD [Primary Care Provider] - 1-2 days Leon Alamo MD [STAFF PHYSICIAN] - 1-2 days Time of Disposition: 16:25
--- NOTE | 2017-04-05 16:08 | US ---
EXAMINATION TYPE: US venous doppler duplex LE RT DATE OF EXAM: 04/05/2017 3:54 PM COMPARISON: NONE CLINICAL HISTORY: Pain. Right leg pain, swelling and bruising x 5 days following slip and fall on ice SIDE PERFORMED: Right TECHNIQUE: The lower extremity deep venous system is examined utilizing real time linear array sonog germaine with graded compression, doppler sonography and color-flow sonography. VESSELS IMAGED: External Iliac Vein (EIV) Common Femoral Vein Deep Femoral Vein Greater Saphenous Vein * Femoral Vein Popliteal Vein Small Saphenous Vein * Proximal Calf Veins (* superficial vessels) Grayscale, color doppler, spectral doppler imaging performed of the deep veins of the lower extremiti es. There is normal flow, compressibility, vascular waveforms. Right Leg: Appears negative for DVT IMPRESSION: No sonographic evidence of deep venous thrombosis within the right lower extremity.
[2017-04-05 16:15] VITALS: BP 149/74; PULSE 68; TEMP 98
== END 2017-04-05 16:31 | disposition home or self-care (01) ==
LOC: EC 14:14
DX: S70.11XA Contusion of right thigh, initial encounter (principal); S80.11XA Contusion of right lower leg, initial encounter; M19.90 Unspecified osteoarthritis, unspecified site; E07.9 Disorder of thyroid, unspecified; G47.30 Sleep apnea, unspecified; Z99.89 Dependence on other enabling machines and devices; Z86.718 Personal history of other venous thrombosis and embolism; Z79.899 Other long term (current) drug therapy; Z88.0 Allergy status to penicillin; W00.0XXA Fall on same level due to ice and snow, initial encounter; Y92.89 Other specified places as the place of occurrence of the external cause
CPT/HCPCS: 99283

== ENCOUNTER → 2018-04-07 | Outpatient (CLI) | payer MEDICARE, OTHER ==
--- NOTE | 2018-04-07 16:57 | CONS ---
CONSULTATION DATE OF SERVICE: 04/07/2018 82-year-old gentleman who has been [facility]evaluated in [facility] for obstructive sleep apnea-hypopnea syndrome. HISTORY OF PRESENT ILLNESS/SLEEP WAKE EVALUATION: The patient has history of obstructive sleep apnea for about 10 years. Last time I saw him in 2009. He continued to use his CPAP equipment every night for the whole night. I checked his CPAP unit. CPAP pressure is 10 cm of water. Usage is 23/30 nights more than 4 hours. Average usage 5 hours and 30 minutes. The patient does not have information about apnea-hypopnea index in breathing during the sleep. SLEEP SCHEDULE: Presently, the patient's sleep schedule 10:30 or 11 o'clock until 10:00 am. FALLING ASLEEP: Sometimes he does have a little bit problem with falling asleep. Has TV set in bedroom. DURING SLEEP: According to his , sometimes he has episodes of snoring while he is on treatment with CPAP. He wakes up from sleep up to 6 times with nocturia. DURING THE DAY/SLEEP WAKE EVALUATION: During the day he has problems with memory, concentration, depression. [place] Sleepiness Scale is 4. PAST MEDICAL HISTORY: Positive for hyperlipidemia, low function of thyroid. Hypothyroidism. Also with history of depression, memory problems. PAST SURGICAL HISTORY: Right shoulder surgery, tonsillectomy, laminectomy from the neck area. MEDICATIONS: Wellbutrin, Lexapro, levothyroxine, Donepezil, Adderall. SOCIAL HISTORY: Negative for smoking. Alcohol consumption occasional. FAMILY HISTORY: Lung problems. PHYSICAL EXAM: GENERAL: gentleman without distress. VITAL SIGNS: BP 157/80, HR 60, RR 16, height 5 feet 6 inches, weight 195.2, body mass index 31.4, temperature 97.6. Oropharynx: Very short distance between soft palate and posterior pharyngeal wall. Neck Supple, no JVD. Thyroid is not palpable. LUNGS Clear to percussion and to auscultation. Good air exchange. No wheezing or rhonchi. HEART S1, S2 regular. No murmurs, gallops, or rubs. ABDOMEN Soft and nontender. Bowel sounds are present. No organomegaly appreciated. EXTREMITIES: Extremities 1 to 2+ bilateral ankle edema. BRAND MARKETING MANAGER: Awake, alert, and oriented X3. Cranial nerves 2 to 7 intact. There is no fasciculation or atrophy. noted. No focal deficits observed. IMPRESSION: 1. Obstructive sleep apnea-hypopnea syndrome for many years. The patient continued to use his CPAP equipment every night. Has episodes of snoring, multiple awakenings from sleep with nocturia while on treatment with CPAP. 2. History of depression. 3. Hyperlipidemia. 4. Memory problems. 5. Status post appendectomy. 6. Status post right shoulder replacement surgery. 7. Hypothyroidism. 8. Status post laminectomy from the neck area. PLAN: 1. Repeat CPAP titration for reevaluation of effective CPAP pressure at the present time. Previous sleep study more than 8 years ago. 2. CPAP unit will be replaced after we will get results of the sleep study. 3. Sleep hygiene with regular time in bed for at least 8 hours. 4. No driving if feeling sleepiness. Thank you very much for referring this patient for reevaluation. Sincerely, Scott Erickson MD, PhD, FAASM Diplomat of [place] [employer] [place] [employer] Elastic Attacher [facility] [place] MMODL / ALEXN: [id number] /
== END ==
LOC: SLEEP 15:18
PROVIDERS: ATTEND Internal Medicine
DX: G47.33 Obstructive sleep apnea (adult) (pediatric) (principal); F32.9 Major depressive disorder, single episode, unspecified; E78.5 Hyperlipidemia, unspecified; E03.9 Hypothyroidism, unspecified; Z90.49 Acquired absence of other specified parts of digestive tract; Z96.611 Presence of right artificial shoulder joint; Z98.890 Other specified postprocedural states; Z99.89 Dependence on other enabling machines and devices; Z79.899 Other long term (current) drug therapy
CPT/HCPCS: 99211

== ENCOUNTER 2018-08-06 15:26 | Emergency (ER) | payer MEDICARE, OTHER ==
[2018-08-06 15:46] VITALS: BP 182/85; PULSE 68; RESP 18; TEMP 97.7
--- NOTE | 2018-08-06 17:08 | XR ---
EXAMINATION TYPE: XR chest 2V DATE OF EXAM: 08/06/2018 COMPARISON: NONE HISTORY: Fall. Pain. TECHNIQUE: Frontal and lateral views of the chest are obtained. FINDINGS: There is minimal linear density at the right lung base. Thoracic aorta is atheromatous. Th ere is right shoulder prosthesis. I see no heart failure nor confluent pneumonic infiltrate. IMPRESSION: Minimal scarring or atelectasis at the right lung base. There is 30% wedging of T11 vert ebra of uncertain age. There is slight compression deformity of mid thoracic vertebra.
--- NOTE | 2018-08-06 17:16 | XR ---
EXAMINATION TYPE: XR shoulder complete RT DATE OF EXAM: 08/06/2018 COMPARISON: 08/03/2016 HISTORY: Shoulder pain TECHNIQUE: 3 views FINDINGS: There is right shoulder prosthesis. Components appear in anatomic position. There is nondis placed fracture mid shaft of the clavicle. This is seen only on one view. There are old healed right posterior rib fractures. IMPRESSION: There is right clavicle fracture that is seen only on one view. This fracture appears new compared to old exam. Fracture appears acute.
--- NOTE | 2018-08-06 17:45 | ED ---
Fall HPI - General Chief Complaint: Fall Stated Complaint: Fall, shoulder pain Time Seen by Provider: 08/06/18 15:48 Source: patient Mode of arrival: ambulatory - History of Present Illness Initial Comments: Patient is an 82-year-old male presenting to emergency Department with right shoulder pain. Patient states that yesterday he fell but is unaware of the mechanism of the fall. Patient states that he developed shoulder pain especially with abduction. Patient states that he did not take any medication to alleviate the pain. Patient states that the pain is alleviated with rest but exacerbated with abduction and extension. She reports he has prior surgeries to the right shoulder. Patient reports that he has a cyst for many years before AC joint. Patient denies any chest pain, shortness of breath or chest tightness. - Related Data Home Medications Medication Instructions Recorded Confirmed Advanced Memory Formula 1 tab PO DAILY 06/05/16 08/03/16 Bacillus Coagulans [Digestive 1 tab PO DAILY 06/05/16 08/03/16 Advantage] Cyanocobalamin (Vitamin B-12) 2,000 mcg PO DAILY 06/05/16 08/03/16 [Vitamin B-12] Donepezil [Aricept] 5 mg PO HS 06/05/16 08/03/16 Krill Oil 500 mg PO DAILY 06/05/16 08/03/16 Levothyroxine Sodium [Synthroid] 50 mcg PO DAILY 06/05/16 08/03/16 Jamil Red 1 tab PO DAILY 06/05/16 08/03/16 Memantine [Namenda] 5 mg PO DAILY 06/05/16 08/03/16 Super Joint Support 1 tab PO DAILY 06/05/16 08/03/16 Vitamin B Complex 1 cap PO DAILY 06/05/16 08/03/16 Vitamin E (Dl,Tocopheryl Acet) 400 unit PO DAILY 06/05/16 08/03/16 [Vitamin E] buPROPion SR [Wellbutrin Sr] 150 mg PO DAILY 06/05/16 08/03/16 Sertraline HCl [Zoloft] 25 mg PO DAILY 06/12/16 08/03/16 Sertraline HCl [Zoloft] 50 mg PO DAILY 06/12/16 08/03/16 Previous Rx's Medication Instructions Recorded Doxycycline Hyclate 100 mg PO BID #10 tab 06/13/16 oxyCODONE-APAP 5-325MG [Percocet 1 tab PO Q4HR PRN #60 tab 06/13/16 5-325 mg] Sennosides-Docusate Sodium 1 tab PO BID PRN #60 tablet 06/14/16 [Senokot-S] Allergies Allergy/AdvReac Type Severity Reaction Status Date / Time Penicillins Allergy Unknown Verified 08/06/18 15:46 Review of Systems ROS Statement: Those systems with pertinent positive or pertinent negative responses have been documented in the HPI. ROS Other: All systems not noted in ROS Statement are negative. Past Medical History Past Medical History: Deep Vein Thrombosis (DVT), Memory Impairment, Osteoarthritis (OA), Sleep Apnea/CPAP/BIPAP, Thyroid Disorder Additional Past Medical History / Comment(s): hx. DVT right thigh, uses CPAP, fell & fx. pelvis 2014 History of Any Multi-Drug Resistant Organisms: None Reported Past Surgical History: Appendectomy, Orthopedic Surgery Additional Past Surgical History / Comment(s): cervical surg, cataract surg., repair left tibial fx. 2011, shoulder surgery Past Anesthesia/Blood Transfusion Reactions: No Reported Reaction Past Psychological History: No Psychological Hx Reported Smoking Status: Never smoker Past Alcohol Use History: Daily Past Drug Use History: None Reported - Past Family History Mother Family Medical History: No Reported History Additional Family Medical History / Comment(s): at 102 General Exam Limitations: no limitations, physical limitation General appearance: alert, in no apparent distress Head exam: Present: atraumatic, normocephalic, normal inspection Eye exam: Present: normal appearance Neck exam: Present: normal inspection Right Shoulder Exam: Present: normal inspection (Cyst noted and before meals joint), tenderness (With flexion and extension and abduction), swelling (Swelling along the clavicle ), deformity (Along clavicle). Absent: full ROM (Limited due to pain), abrasion, laceration, ecchymosis, crepitus Neurological exam: Present: alert, oriented X3 Psychiatric exam: Present: normal affect, normal mood Skin exam: Present: warm, normal color Course Vital Signs 08/06/18 15:42 Temperature 97.7 F Pulse Rate 68 Respiratory 18 Rate Blood Pressure 182/85 O2 Sat by Pulse 96 Oximetry Medical Decision Making - Medical Decision Making Patient is an 82-year-old male presenting to emergency Department with right shoulder injury. X-ray is suggestive of a nondisplaced clavicle injury. Patient was offered a sling but declined.. Patient advised to follow with orthopedics. Patient advised to return to emergency department if symptoms worsen cased discussed with physician. Disposition Clinical Impression: Clavicle fracture Disposition: HOME SELF-CARE Condition: Stable Instructions (If sedation given, give patient instructions): Clavicle Fracture (ED) Additional Instructions: Please wear sling to alleviate the pain. Please follow up with orthopedics. Please return to emergency department if symptoms worsen. Is patient prescribed a controlled substance at d/c from ED?: No Referrals: Kadeem Garcia MD [Primary Care Provider] - 1-2 days Leon Alamo MD [STAFF PHYSICIAN] - 1-2 days Time of Disposition: 17:45
== END 2018-08-06 17:49 | disposition home or self-care (01) ==
LOC: EC 15:26
DX: S42.001A Fracture of unspecified part of right clavicle, initial encounter for closed fracture (principal); M25.811 Other specified joint disorders, right shoulder; R29.6 Repeated falls; E07.9 Disorder of thyroid, unspecified; G47.30 Sleep apnea, unspecified; G31.84 Mild cognitive impairment of uncertain or unknown etiology; Z88.0 Allergy status to penicillin; Z79.890 Hormone replacement therapy; Z79.899 Other long term (current) drug therapy; Z99.89 Dependence on other enabling machines and devices; Z53.20 Procedure and treatment not carried out because of patient's decision for unspecified reasons; W01.0XXA Fall on same level from slipping, tripping and stumbling without subsequent striking against object, initial encounter
CPT/HCPCS: 71046; 99283

== ENCOUNTER → 2018-11-19 | Outpatient (CLI) | payer MEDICARE, OTHER ==
--- NOTE | 2018-11-19 15:55 | CT ---
EXAMINATION TYPE: CT brain wo con DATE OF EXAM: 11/19/2018 COMPARISON: None INDICATION: syncopal episode, loss of balance DLP: 1217.1 mGycm, Automated exposure control for dose reduction was used. CONTRAST: None CT of the brain is performed utilizing 3 mm thick sections through the posterior fossa and 3 mm thick sections through the remaining calvarium. Study is performed within 24 hours of arrival to the hosp [facility]. No abnormal hyperdensity is present to suggest an acute intracranial hemorrhage. No mass lesion is evident. No acute infarcts are evident. Mild periventricular white matter hypodensity is present, likely on th e basis of chronic white matter ischemic changes. Suspicious specific abnormality within the cerebell um was not evident. Ventricles and sulci are prominent for the patient age. Retention cysts are within the maxillary sinuses. IMPRESSIONS: 1. Age-related atrophy with chronic appearing white matter ischemic changes.
== END | disposition home or self-care (01) ==
LOC: RADCTMAIN 15:32
PROVIDERS: ATTEND Family Medicine
DX: G31.1 Senile degeneration of brain, not elsewhere classified (principal); I67.82 Cerebral ischemia
CPT/HCPCS: 70450

== ENCOUNTER 2019-01-19 17:06 | Emergency (ER) | payer MEDICARE, OTHER ==
[2019-01-19 17:12] VITALS: RESP 18
[2019-01-19] MEDS ORDERED: SODIUM CHLORIDE 0.9% 1,000 ML IV STA (17:37)
[2019-01-19] MEDS ORDERED: KETOROLAC 30 MG/ML 1 ML VIAL IVP STA (17:38)
--- NOTE | 2019-01-19 17:41 | ED ---
Chest Pain HPI - General Chief Complaint: Chest Pain Stated Complaint: chest pain Time Seen by Provider: 01/19/19 17:14 Source: patient, RN notes reviewed Mode of arrival: ambulatory Limitations: no limitations - History of Present Illness Initial Comments: Is a 3-year-old male who states he had no prior history of heart seizure who presents with complaints of 5-7 days of left-sided chest pain he states started after pulling plants out of his garden. The pain is sharp 10/10 severity gets worse with deep breathing and movements not associated with any cough fevers chills nausea vomiting sweats or other symptoms he believes it may be musculoskeletal be is not sure he also has pain to the right side of the chest which she believes is musculoskeletal no other modifying factors at this time MD Complaint: chest pain - Related Data Home Medications Medication Instructions Recorded Confirmed Advanced Memory Formula 1 tab PO DAILY 06/05/16 08/03/16 Bacillus Coagulans [Digestive 1 tab PO DAILY 06/05/16 08/03/16 Advantage] Cyanocobalamin (Vitamin B-12) 2,000 mcg PO DAILY 06/05/16 08/03/16 [Vitamin B-12] Donepezil [Aricept] 5 mg PO HS 06/05/16 08/03/16 Krill Oil 500 mg PO DAILY 06/05/16 08/03/16 Levothyroxine Sodium [Synthroid] 50 mcg PO DAILY 06/05/16 08/03/16 Jamil Red 1 tab PO DAILY 06/05/16 08/03/16 Memantine [Namenda] 5 mg PO DAILY 06/05/16 08/03/16 Super Joint Support 1 tab PO DAILY 06/05/16 08/03/16 Vitamin B Complex 1 cap PO DAILY 06/05/16 08/03/16 Vitamin E (Dl,Tocopheryl Acet) 400 unit PO DAILY 06/05/16 08/03/16 [Vitamin E] buPROPion SR [Wellbutrin Sr] 150 mg PO DAILY 06/05/16 08/03/16 Sertraline HCl [Zoloft] 25 mg PO DAILY 06/12/16 08/03/16 Sertraline HCl [Zoloft] 50 mg PO DAILY 06/12/16 08/03/16 Previous Rx's Medication Instructions Recorded Doxycycline Hyclate 100 mg PO BID #10 tab 06/13/16 oxyCODONE-APAP 5-325MG [Percocet 1 tab PO Q4HR PRN #60 tab 06/13/16 5-325 mg] Sennosides-Docusate Sodium 1 tab PO BID PRN #60 tablet 06/14/16 [Senokot-S] Ketorolac [Toradol] 10 mg PO Q6HR #20 tab 01/19/19 Allergies Allergy/AdvReac Type Severity Reaction Status Date / Time Penicillins Allergy Unknown Verified 08/06/18 15:46 Review of Systems ROS Statement: Those systems with pertinent positive or pertinent negative responses have been documented in the HPI. ROS Other: All systems not noted in ROS Statement are negative. EKG Findings - EKG Results: EKG: interpreted by KIRK (Sinus rhythm first-degree AV block rate was 65. MT interval to 16, QRS duration 142, QT/QTC 468/486 evidence a right bundle-branch block nonspecific T-wave configuration.) Past Medical History Past Medical History: Deep Vein Thrombosis (DVT), Memory Impairment, Osteoarthritis (OA), Sleep Apnea/CPAP/BIPAP, Thyroid Disorder Additional Past Medical History / Comment(s): hx. DVT right thigh, uses CPAP, fell & fx. pelvis 2014 History of Any Multi-Drug Resistant Organisms: None Reported Past Surgical History: Appendectomy, Orthopedic Surgery Additional Past Surgical History / Comment(s): cervical surg, cataract surg., repair left tibial fx. 2011, shoulder surgery Past Anesthesia/Blood Transfusion Reactions: No Reported Reaction Past Psychological History: No Psychological Hx Reported Smoking Status: Never smoker Past Alcohol Use History: Daily Past Drug Use History: None Reported - Past Family History Mother Family Medical History: No Reported History Additional Family Medical History / Comment(s): at 102 General Exam - General Exam Comments Initial Comments: Is a well-developed well-nourished awake alert oriented 3 male Limitations: no limitations General appearance: alert, anxious Head exam: Present: atraumatic, normocephalic, normal inspection Eye exam: Present: normal appearance, PERRL, EOMI. Absent: scleral icterus, conjunctival injection, periorbital swelling ENT exam: Present: normal exam, mucous membranes moist Neck exam: Present: normal inspection, full ROM, other (No stridor JVD or bruits). Absent: tenderness, meningismus, lymphadenopathy Respiratory exam: Present: normal lung sounds bilaterally, chest wall tenderness (Reproducible tenderness palpation on the left costochondral margin as well as the left costal sternal margin and a right costal chondral margin no step-off or crepitation). Absent: respiratory distress, wheezes, rales, rhonchi, stridor Cardiovascular Exam: Present: regular rate, normal rhythm, normal heart sounds. Absent: systolic murmur, diastolic murmur, rubs, gallop, clicks GI/Abdominal exam: Present: soft, normal bowel sounds. Absent: distended, tenderness, guarding, rebound, rigid Extremities exam: Present: normal inspection, full ROM, normal capillary refill, pedal edema. Absent: tenderness, joint swelling, calf tenderness Back exam: Present: normal inspection Neurological exam: Present: alert, oriented X3, CN II-XII intact Psychiatric exam: Present: normal affect, normal mood Skin exam: Present: warm, dry, intact, normal color. Absent: rash Course Vital Signs 01/19/19 01/19/19 17:09 20:00 Temperature 97.4 F L Pulse Rate 70 61 Respiratory 18 18 Rate Blood Pressure 170/77 175/98 O2 Sat by Pulse 97 97 Oximetry Chest Pain MDM - MDM Imaging was reviewed no acute findings seen. The d-dimer was elevated CT angios was performed no evidence of any pulmonary embolus. I did discuss the findings with the patient's was present the presentation is consistent with musculoskeletal pain costochondritis the pain is reproducible over the costochondral margins bilaterally. Patient will be placed on a short course of anti-inflammatories. Disposition Clinical Impression: Costochondritis, Chest wall syndrome Disposition: HOME SELF-CARE Condition: Good Instructions (If sedation given, give patient instructions): Costochondritis (ED) Additional Instructions: Warm compresses, medication sent to your pharmacy of choice Prescriptions: Ketorolac [Toradol] 10 mg PO Q6HR #20 tab Is patient prescribed a controlled substance at d/c from ED?: No Referrals: Kadeem Garcia MD [Primary Care Provider] - 1-2 days
[2019-01-19 18:02] LABS: Basophils % (A) 1 %; Eosinophils # (A) 0.1 k/uL (0-0.7); Eosinophils % (A) 1 %; HCT 42.8 % (39.0-53.0); HGB 14.3 gm/dL (13.0-17.5); Lymphocytes # (A) 1.2 k/uL (1.0-4.8); Lymphocytes % (A) 22 %; MCH 31.2 pg (25.0-35.0); MCHC 33.4 g/dL (31.0-37.0); MCV 93.2 fL (80.0-100.0); Mean Platelet Volume 6.7; Monocytes # (A) 0.3 k/uL (0-1.0); Monocytes % (A) 5 %; Neutrophils # (A) 3.5 k/uL (1.3-7.7); Neutrophils % (A) 68 %; Platelet Count 180 k/uL (150-450); RDW 12.8 % (11.5-15.5); WBC 5.2 k/uL (3.8-10.6)
[2019-01-19 18:12] LABS: ALT 30 U/L (21-72); AST 33 U/L (17-59); African American GFR (CKD) >90 (>60 ml/min/1.73 sqM); Albumin 3.9 g/dL (3.5-5.0); Alkaline Phosphatase 77 U/L (38-126); Anion Gap 8 mmol/L; Blood Urea Nitrogen 20 mg/dL (9-20); Calcium 9.3 mg/dL (8.4-10.2); Carbon Dioxide 25 mmol/L (22-30); Chloride 104 mmol/L (98-107); Creatine Kinase 134 U/L (55-170); Glucose 93 mg/dL (74-99); Magnesium 1.8 mg/dL (1.6-2.3); Potassium 3.9 mmol/L (3.5-5.1); Sodium 137 mmol/L (137-145); Total Bilirubin 0.9 mg/dL (0.2-1.3); Total Protein 6.6 g/dL (6.3-8.2)
[2019-01-19 18:18] LABS: Partial Thromboplastin Time 22.1 sec (22.0-30.0); Prothrombin Time 10.3 sec (9.0-12.0)
[2019-01-19 18:19] LABS: D-Dimer 1.59 mg/L FEU (<0.60)
--- NOTE | 2019-01-19 18:34 | XR ---
EXAMINATION TYPE: XR chest 2V DATE OF EXAM: 01/19/2019 COMPARISON: NONE HISTORY: Chest pain TECHNIQUE: Frontal and lateral views of the chest are obtained. FINDINGS: There is some linear density at the left lung base. There is no heart failure. Thoracic ao rta is atheromatous. There is right shoulder prosthesis. There is poor inspiration. There is spurring in the thoracic spine. IMPRESSION: Poor inspiration with atelectasis at the lung bases increased compared to old exam. No h eart failure.
--- NOTE | 2019-01-19 19:35 | CT ---
EXAMINATION TYPE: CT angio chest DATE OF EXAM: 01/19/2019 7:16 PM COMPARISON: None HISTORY: Chest pain and elevated d-dimer. CT DLP: 307.8 mGycm Automated exposure control for dose reduction was used. CONTRAST: CTA scan of the thorax is performed with IV Contrast, patient injected with 80ml mL of Isovue 370, pu lmonary embolism protocol. . FINDINGS: There are 3-D post processed images. There is patchy infiltrate and atelectasis at the posterior lung bases. There is minimal pleural thic kening right lung base. There is no pericardial effusion. Heart is slightly enlarged. Thoracic aorta is atheromatous. Ascending aorta measures 4 cm. There is no dissection. There are large pulmonary arteries. I see no filling defects in the pulmonary arteries. There is no m ediastinal adenopathy. There are no hilar masses. There is hypertrophic spurring in the thoracic spin e. There is anterior wedging of T12 T11 and T5 vertebra up to 20%. IMPRESSION: NO EVIDENCE OF PULMONARY EMBOLISM. MINIMAL ANEURYSM OF THE THORACIC AORTA. NO DISSECTION. LARGE PULMONARY ARTERIES CONSISTENT WITH PULMONARY HYPERTENSION. MILD BASILAR PULMONARY INFILTRATES AND ATELECTASIS AT THE LOWER LOBES BILATERALLY. THORACIC COMPRESSI ON FRACTURES ARE PROBABLY OLD. THERE IS PROBABLY NO CHANGE COMPARED TO CHEST X-RAY OF 08/06/2018.
[2019-01-19 20:26] LABS: Appearance,Urine Clear (Clear); Bilirubin,Urine Negative (Negative); Blood,Urine Negative (Negative); Color,Urine Yellow; Glucose,Urine (UA) Negative (Negative); Ketones,Urine 1+ (Negative); Leukocyte Esterase,Urine Negative (Negative); Nitrite,Urine Negative (Negative); Protein,Urine Negative (Negative); Specific Gravity,Urine 1.018 (1.001-1.035); Urobilinogen,Urine <2.0 mg/dL (<2.0)
[2019-01-19 21:23] VITALS: BP 190/95; PULSE 65; TEMP 97.8
== END 2019-01-19 21:43 | disposition home or self-care (01) ==
LOC: EC 17:06
DX: M94.0 Chondrocostal junction syndrome [Tietze] (principal); G47.30 Sleep apnea, unspecified; Z79.890 Hormone replacement therapy; Z79.899 Other long term (current) drug therapy; Z88.0 Allergy status to penicillin; Z86.718 Personal history of other venous thrombosis and embolism; Z99.89 Dependence on other enabling machines and devices
CPT/HCPCS: 36415; 93005; 85379; 83880; 80053; 82550; 83690; 83735; 84484; 85025; 85610; 85730; 81003; 71046; 71275; 99285; 96374; 96361 ×4; J1885; Q9967

== ENCOUNTER 2019-10-20 18:32 | Emergency (ER) | payer MEDICARE, OTHER ==
[2019-10-20] MEDS ORDERED: LIDOCAINE VISCOUS 2% 15 ML CUP MUCOUS MEM ONE (19:27)
--- NOTE | 2019-10-20 19:33 | ED ---
Wound/Laceration HPI - General Chief Complaint: Wound/Laceration Stated Complaint: Fall,lip lac Time Seen by Provider: 10/20/19 19:13 Source: patient, RN notes reviewed, old records reviewed Mode of arrival: ambulatory Limitations: no limitations - History of Present Illness Initial Comments: This Patient is an 84-year-old male presents to return today for her trip and fall forward. 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 Patient states that he has abrasions over his nose. He reports that he cut his upper inner lip. Denies any pain with jaw movement. She denies any difficulty breathing. Denies any visual changes. He is not on blood thinners. He had no loss consciousness. - Related Data Home Medications Medication Instructions Recorded Confirmed Advanced Memory Formula 1 tab PO DAILY 06/05/16 08/03/16 Bacillus Coagulans [Digestive 1 tab PO DAILY 06/05/16 08/03/16 Advantage] Cyanocobalamin (Vitamin B-12) 2,000 mcg PO DAILY 06/05/16 08/03/16 [Vitamin B-12] Donepezil [Aricept] 5 mg PO HS 06/05/16 08/03/16 Krill Oil 500 mg PO DAILY 06/05/16 08/03/16 Levothyroxine Sodium [Synthroid] 50 mcg PO DAILY 06/05/16 08/03/16 Jamil Red 1 tab PO DAILY 06/05/16 08/03/16 Memantine [Namenda] 5 mg PO DAILY 06/05/16 08/03/16 Super Joint Support 1 tab PO DAILY 06/05/16 08/03/16 Vitamin B Complex 1 cap PO DAILY 06/05/16 08/03/16 Vitamin E (Dl,Tocopheryl Acet) 400 unit PO DAILY 06/05/16 08/03/16 [Vitamin E] buPROPion SR [Wellbutrin Sr] 150 mg PO DAILY 06/05/16 08/03/16 Sertraline HCl [Zoloft] 25 mg PO DAILY 06/12/16 08/03/16 Sertraline HCl [Zoloft] 50 mg PO DAILY 06/12/16 08/03/16 Previous Rx's Medication Instructions Recorded Doxycycline Hyclate 100 mg PO BID #10 tab 06/13/16 oxyCODONE-APAP 5-325MG [Percocet 1 tab PO Q4HR PRN #60 tab 06/13/16 5-325 mg] Sennosides-Docusate Sodium 1 tab PO BID PRN #60 tablet 06/14/16 [Senokot-S] Ketorolac [Toradol] 10 mg PO Q6HR #20 tab 01/19/19 Doxycycline [Vibramycin] 100 mg PO BID 5 Days #10 capsule 10/20/19 Allergies Allergy/AdvReac Type Severity Reaction Status Date / Time Penicillins Allergy Unknown Verified 10/20/19 18:36 Review of Systems ROS Statement: Those systems with pertinent positive or pertinent negative responses have been documented in the HPI. ROS Other: All systems not noted in ROS Statement are negative. Past Medical History Past Medical History: Deep Vein Thrombosis (DVT), Memory Impairment, Osteoarthritis (OA), Sleep Apnea/CPAP/BIPAP, Thyroid Disorder Additional Past Medical History / Comment(s): hx. DVT right thigh, uses CPAP, fell & fx. pelvis 2014 History of Any Multi-Drug Resistant Organisms: None Reported Past Surgical History: Appendectomy, Orthopedic Surgery Additional Past Surgical History / Comment(s): cervical surg, cataract surg., repair left tibial fx. 2012, shoulder surgery Past Anesthesia/Blood Transfusion Reactions: No Reported Reaction Past Psychological History: No Psychological Hx Reported Smoking Status: Former smoker Past Alcohol Use History: Daily Past Drug Use History: None Reported - Past Family History Mother Family Medical History: No Reported History Additional Family Medical History / Comment(s): at 102 General Exam - General Exam Comments Initial Comments: 84-year-old male. Alert and oriented 4. No acute distress. Limitations: no limitations General appearance: alert, in no apparent distress Head exam: Present: atraumatic, normocephalic, normal inspection Eye exam: Present: normal appearance, PERRL, EOMI. Absent: scleral icterus, conjunctival injection, periorbital swelling ENT exam: Present: normal exam, mucous membranes moist. Absent: normal oropharynx ( has a 1 inch laceration in the upper inner lip. The linear laceration.) Neck exam: Present: normal inspection. Absent: tenderness, meningismus, lymphadenopathy Respiratory exam: Present: normal lung sounds bilaterally. Absent: respiratory distress, wheezes, rales, rhonchi, stridor Cardiovascular Exam: Present: regular rate, normal rhythm, normal heart sounds. Absent: systolic murmur, diastolic murmur, rubs, gallop, clicks GI/Abdominal exam: Present: soft, normal bowel sounds. Absent: distended, tenderness, guarding, rebound, rigid Extremities exam: Present: normal inspection, full ROM, normal capillary refill. Absent: tenderness, pedal edema, joint swelling, calf tenderness Back exam: Present: normal inspection Neurological exam: Present: alert, oriented X3, CN II-XII intact Psychiatric exam: Present: normal affect, normal mood Skin exam: Present: warm, dry, intact, normal color. Absent: rash Course Vital Signs 10/20/19 18:36 Temperature 98.2 F Pulse Rate 104 H Respiratory 18 Rate Blood Pressure 140/90 O2 Sat by Pulse 99 Oximetry Medical Decision Making - Medical Decision Making 84-year-old male presents emergency department today for complaints of tripping falling and causing a laceration to his upper inner lip abrasion over his nose. He had no loss consciousness. He is not on blood thinners. Denies any head or neck pain. Is no acute neurological deficits. He otherwise appears well. Laceration was irrigated and closed with 5 sutures. Discussed with the Patient on antibiotics for concern for infection prevention. Discussed soft diet. Patient laceration is no nasal bone fracture. He has full range of motion of the jaw no tenderness to the maxilla and extraocular eye movements are intact. Discussed following up with PCP. Discussed wound care Disposition Clinical Impression: Lip laceration, Nasal abrasion Disposition: HOME SELF-CARE Condition: Good Instructions (If sedation given, give patient instructions): Care For Your Absorbable Stitches (ED), Abrasion (ED) Additional Instructions: Patient showed rinse and swish with salt water or Listerine one to 2 times a day. Recommended finishing the antibiotic prescription. Sutures will dissolve by themselves in the next 5-7 days. Put a thin film of antibiotic ointment over then abrasions over the face. Motrin or Tylenol for pain. Prescriptions: Doxycycline [Vibramycin] 100 mg PO BID 5 Days #10 capsule Is patient prescribed a controlled substance at d/c from ED?: No Referrals: Kadeem Garcia MD [Primary Care Provider] - 1-2 days Time of Disposition: 20:18
--- NOTE | 2019-10-20 20:36 | XR ---
PROCEDURE: XR facial bones complete - 3V DATE AND TIME: 10/20/2019 7:45 PM CLINICAL INDICATION: PHH; fall, nasal injury TECHNIQUE: AP Ledesma, AP Arboleda, and lateral soft tissue nasal bone views COMPARISON: None FINDINGS: There is no fracture or malalignment. The soft tissues are unremarkable. IMPRESSION: NO ACUTE PROCESS.
[2019-10-20 20:51] VITALS: BP 145/90; PULSE 100; RESP 17; TEMP 98.4
== END 2019-10-20 20:37 | disposition home or self-care (01) ==
LOC: EC 18:32
DX: S01.511A Laceration without foreign body of lip, initial encounter (principal); G47.30 Sleep apnea, unspecified; E07.9 Disorder of thyroid, unspecified; R41.3 Other amnesia; Z79.899 Other long term (current) drug therapy; Z87.891 Personal history of nicotine dependence; Z86.718 Personal history of other venous thrombosis and embolism; Z99.89 Dependence on other enabling machines and devices; W01.0XXA Fall on same level from slipping, tripping and stumbling without subsequent striking against object, initial encounter; Y93.89 Activity, other specified; Y92.89 Other specified places as the place of occurrence of the external cause; Z88.0 Allergy status to penicillin
CPT/HCPCS: 70150; 99283

== ENCOUNTER 2020-06-13 15:48 | Observation (INO) | payer MEDICARE, OTHER ==
--- NOTE | 2020-06-13 15:56 | ED ---
Fall HPI <Kayleen Ring - Last Filed: 06/13/20 18:52> <Andriy Santos Cezar - Last Filed: 06/13/20 19:40> - General Chief Complaint: Fall Stated Complaint: head injury/3ft + Time Seen by Provider: 06/13/20 15:54 - History of Present Illness Initial Comments: Patient is an 84-year-old male presenting to the emergency department after he fell just prior to arrival. Patient states she was attempting to go down a few steps onto the porch when he lost his footing and fell forward hitting the left side of his head on the cement. Patient fell into a fence as well. He is denying any headaches, no neck pain, no back pain. He has denied any other injuries. He denies taking a blood thinner. There is no loss of consciousness. Denies alcohol use. Patient's states she put on some topical powder that is supposed to stop the bleeding. states that when the bleeding did not slow down she brought him into the ER. Patient denies any blurry vision, no headache, no dizziness. Denies any chest pain or shortness of breath. He has no further complaints at this time. (Kayleen Ring) - Related Data Home Medications Medication Instructions Recorded Confirmed Advanced Memory Formula 1 tab PO DAILY 06/05/16 08/03/16 Bacillus Coagulans [Digestive 1 tab PO DAILY 06/05/16 08/03/16 Advantage] Cyanocobalamin (Vitamin B-12) 2,000 mcg PO DAILY 06/05/16 08/03/16 [Vitamin B-12] Donepezil [Aricept] 5 mg PO HS 06/05/16 08/03/16 Krill Oil 500 mg PO DAILY 06/05/16 08/03/16 Levothyroxine Sodium [Synthroid] 50 mcg PO DAILY 06/05/16 08/03/16 Jamil Red 1 tab PO DAILY 06/05/16 08/03/16 Memantine [Namenda] 5 mg PO DAILY 06/05/16 08/03/16 Super Joint Support 1 tab PO DAILY 06/05/16 08/03/16 Vitamin B Complex 1 cap PO DAILY 06/05/16 08/03/16 Vitamin E (Dl,Tocopheryl Acet) 400 unit PO DAILY 06/05/16 08/03/16 [Vitamin E] buPROPion SR [Wellbutrin Sr] 150 mg PO DAILY 06/05/16 08/03/16 Sertraline HCl [Zoloft] 25 mg PO DAILY 06/12/16 08/03/16 Sertraline HCl [Zoloft] 50 mg PO DAILY 06/12/16 08/03/16 Previous Rx's Medication Instructions Recorded Doxycycline Hyclate 100 mg PO BID #10 tab 06/13/16 oxyCODONE-APAP 5-325MG [Percocet 1 tab PO Q4HR PRN #60 tab 06/13/16 5-325 mg] Sennosides-Docusate Sodium 1 tab PO BID PRN #60 tablet 06/14/16 [Senokot-S] Ketorolac [Toradol] 10 mg PO Q6HR #20 tab 01/19/19 Doxycycline [Vibramycin] 100 mg PO BID 5 Days #10 capsule 10/20/19 Allergies Allergy/AdvReac Type Severity Reaction Status Date / Time Penicillins Allergy Unknown Verified 06/13/20 15:56 Review of Systems ROS Other: All systems not noted in ROS Statement are negative. <Kayleen Ring - Last Filed: 06/13/20 18:52> ROS Other: All systems not noted in ROS Statement are negative. <Andriy Santos - Last Filed: 06/13/20 19:40> ROS Statement: Those systems with pertinent positive or pertinent negative responses have been documented in the HPI. Past Medical History Past Medical History: Deep Vein Thrombosis (DVT), Memory Impairment, Osteoarthritis (OA), Sleep Apnea/CPAP/BIPAP, Thyroid Disorder Additional Past Medical History / Comment(s): hx. DVT right thigh, uses CPAP, fell & fx. pelvis 2014 History of Any Multi-Drug Resistant Organisms: None Reported Past Surgical History: Appendectomy, Orthopedic Surgery Additional Past Surgical History / Comment(s): cervical surg, cataract surg., repair left tibial fx. 2012, shoulder surgery Past Anesthesia/Blood Transfusion Reactions: No Reported Reaction Past Psychological History: No Psychological Hx Reported Smoking Status: Former smoker Past Alcohol Use History: Daily Past Drug Use History: None Reported - Past Family History Mother Family Medical History: No Reported History Additional Family Medical History / Comment(s): at 102 <Kayleen Ring - Last Filed: 06/13/20 18:52> General Exam <Kayleen Ring - Last Filed: 06/13/20 18:52> - General Exam Comments Initial Comments: GENERAL: Patient is well-developed and well-nourished. Patient is nontoxic and in no acute distress. HEAD: Patient has a hematoma the left side of the forehead, no signs of basal skull fracture. EYES: Pupils equal round and reactive to light, extraocular movements intact, sclera anicteric, conjunctiva are normal. Eyelids were unremarkable. ENT: TMs normal, nares patent, oropharynx clear without exudates. Moist mucous membranes. NECK: Normal range of motion, supple without lymphadenopathy or JVD. There is no midline tenderness. LUNGS: Unlabored respirations. Breath sounds clear to auscultation bilaterally and equal. No wheezes rales or rhonchi. HEART: Regular rate and rhythm without murmurs, rubs or gallops. ABDOMEN: Soft, nontender, normoactive bowel sounds. No guarding, no rebound. No masses appreciated. : Deferred MUSCULOSKELETAL: Normal extremities with adequate strength and normal range of motion, no pitting or edema. No clubbing or cyanosis. NEUROLOGICAL: Patient is alert and oriented x 3. Motor and sensory are also intact. Cranial nerves II through XII grossly intact. Symmetrical smile. Normal speech, normal gait. PSYCH: Normal mood, normal affect. SKIN: Warm, Dry, normal turgor, no rashes. Patient has a 1 cm laceration to the left forehead, there is active bleeding. (Kayleen Ring) Course Vital Signs 06/13/20 06/13/20 15:53 18:26 Temperature 97.9 F Pulse Rate 73 64 Respiratory 20 18 Rate Blood Pressure 188/73 187/79 O2 Sat by Pulse 97 95 Oximetry Procedures - Laceration Laceration #1 Consent Obtained: verbal consent, emergent situation Indication: laceration Site: scalp Size (cm): 1 Description: stellate Depth: arterial injury, [id number] Anesthetic Used: lidocaine 1%, with epi Anesthesia Technique: local infiltration Amount (mls): 7 Pre-repair: wound explored, irrigated extensively, deep structures intact Type of Sutures: nylon Size of Sutures: 4-0 Number of Sutures: 6 Technique: simple, interrupted Complications: bleeding Patient Tolerated Procedure: well <Andriy Santos - Last Filed: 06/13/20 19:40> - Laceration Laceration #1 Additional Comments: Significant arterial bleed ultimately controlled with nylon suture and compression (Andriy Santos) Medical Decision Making - Lab Data Result diagrams: 06/13/20 18:23 06/13/20 18:23 <María ElenaKayleen Divine - Last Filed: 06/13/20 18:52> - Lab Data Result diagrams: 06/13/20 18:23 06/13/20 18:23 <TomAndriy Robb - Last Filed: 06/13/20 19:40> - Medical Decision Making Patient is an 84-year-old male here for a fall just prior to arrival. There was no loss of consciousness. Patient has a large hematoma of the left forehead, there is active bleeding. He is not on blood thinners, he did not lose consciousness. CT of the brain and C-spine showed no acute process, no acute fr actures. Patient does have a 1 cm laceration to the left forehead, there was active bleeding, not well controlled with a bandage. Lidocaine with epi was injected around the wound, sutures, we were able to control the bleeding. Patient lost a significant amount of blood, we did check CBC and coags which are normal at this time. Patient continues to feel asymptomatic, he denies any dizziness, nausea, blurry vision. Patient will be admitted for observation of this wound and to continue check hemoglobin levels. Patient accepted by Dr. Bridges. Case was assisted with Dr. Santos who is in agreement with this plan of care. (Kayleen Ring) 84-year-old male with head injury, left frontal hematoma. The dressing have been applied prior to arrival. After removal of the dressing there was significant arterial hemorrhage from a small central laceration in the middle of the hematoma. Ultimately 6 nylon sutures were placed for hemostasis with pressure, lidocaine with epinephrine and a compressive dressing. There was significant hemorrhage by history at the home where the injury occurred and significant hemorrhage in the emergency department. The vital signs in been stable in the initial hemoglobin is 13.5. However given the degree of hemorrhage in the concern for rebleed the patient will be observed for repeat hemoglobin, and to closely monitor the hematoma. I did discuss case with Dr. Razo who will admit. (Andriy Santos) - Lab Data Lab Results 06/13/20 06/13/20 06/13/20 Range/Units 18:21 18:23 18:23 WBC 6.0 (3.8-10.6) k/uL RBC 4.50 (4.30-5.90) m/uL Hgb 13.5 (13.0-17.5) gm/dL Hct 41.9 (39.0-53.0) % MCV 93.1 (80.0-100.0) fL MCH 29.9 (25.0-35.0) pg MCHC 32.1 (31.0-37.0) g/dL RDW 14.2 (11.5-15.5) % Plt Count 185 (150-450) k/uL MPV 7.1 Neutrophils % 74 % Lymphocytes % 16 % Monocytes % 6 % Eosinophils % 2 % Basophils % 0 % Neutrophils # 4.5 (1.3-7.7) k/uL Lymphocytes # 1.0 (1.0-4.8) k/uL Monocytes # 0.4 (0-1.0) k/uL Eosinophils # 0.1 (0-0.7) k/uL Basophils # 0.0 (0-0.2) k/uL PT 11.0 (9.0-12.0) sec INR 1.0 (<1.2) APTT 23.8 (22.0-30.0) sec Sodium (137-145) mmol/L Potassium (3.5-5.1) mmol/L Chloride (98-107) mmol/L Carbon Dioxide (22-30) mmol/L Anion Gap mmol/L BUN (9-20) mg/dL Creatinine (0.66-1.25) mg/dL Est GFR (CKD-EPI)AfAm (>60 ml/min/1.73 sqM) Est GFR (CKD-EPI)NonAf (>60 ml/min/1.73 sqM) Glucose (74-99) mg/dL Calcium (8.4-10.2) mg/dL Total Bilirubin (0.2-1.3) mg/dL AST (17-59) U/L ALT (4-49) U/L Alkaline Phosphatase (38-126) U/L Total Protein (6.3-8.2) g/dL Albumin (3.5-5.0) g/dL Blood Type Recheck No Previous Record Bld Type Recheck Status CABO Indicated Spec Expiration Date 06/16/2020 - 232206/13/20 Range/Units 18:23 WBC (3.8-10.6) k/uL RBC (4.30-5.90) m/uL Hgb (13.0-17.5) gm/dL Hct (39.0-53.0) % MCV (80.0-100.0) fL MCH (25.0-35.0) pg MCHC (31.0-37.0) g/dL RDW (11.5-15.5) % Plt Count (150-450) k/uL MPV Neutrophils % % Lymphocytes % % Monocytes % % Eosinophils % % Basophils % % Neutrophils # (1.3-7.7) k/uL Lymphocytes # (1.0-4.8) k/uL Monocytes # (0-1.0) k/uL Eosinophils # (0-0.7) k/uL Basophils # (0-0.2) k/uL PT (9.0-12.0) sec INR (<1.2) APTT (22.0-30.0) sec Sodium 138 (137-145) mmol/L Potassium 3.8 (3.5-5.1) mmol/L Chloride 103 (98-107) mmol/L Carbon Dioxide 28 (22-30) mmol/L Anion Gap 7 mmol/L BUN 24 H (9-20) mg/dL Creatinine 0.75 (0.66-1.25) mg/dL Est GFR (CKD-EPI)AfAm >90 (>60 ml/min/1.73 sqM) Est GFR (CKD-EPI)NonAf 83 (>60 ml/min/1.73 sqM) Glucose 84 (74-99) mg/dL Calcium 8.8 (8.4-10.2) mg/dL Total Bilirubin 0.6 (0.2-1.3) mg/dL AST 30 (17-59) U/L ALT 17 (4-49) U/L Alkaline Phosphatase 82 (38-126) U/L Total Protein 6.1 L (6.3-8.2) g/dL Albumin 3.8 (3.5-5.0) g/dL Blood Type Recheck Bld Type Recheck Status Spec Expiration Date Disposition Is patient prescribed a controlled substance at d/c from ED?: No Decision Date: 06/13/20 Decision Time: 18:22 <Kayleen Ring - Last Filed: 06/13/20 18:52> <Andriy Santos - Last Filed: 06/13/20 19:40> Clinical Impression: Fall, Traumatic hematoma of forehead Disposition: ADMITTED IP TO THIS HOSP Condition: Stable
[2020-06-13] MEDS ORDERED: DIPH,PERTUS(ACELL)TETVAC-LF 0.5 ML VIAL IM ONE (16:00)
--- NOTE | 2020-06-13 16:27 | CT ---
EXAMINATION TYPE: CT brain [place] DATE OF EXAM: 06/13/2020 COMPARISON: November 19, 2018 HISTORY: fall, head injury, laceration at site CT DLP: 1314.[address] of the brain was performed. The ventricles, basal cisterns and sulci overlying the cerebral convexities demonstrate enlargement. There is no evidence for intracranial hemorrhage or sulcal effacement. There is decreased attenuatio n about the periventricular white matter and deep white matter of both cerebral hemispheres, compatib le with chronic small vessel ischemia. No mass effects are seen. If symptoms persist consider MRI. Osseous calvarium is intact. Large left frontal scalp hematoma. IMPRESSION: 1. Age related atrophic and chronic small vessel ischemic change without acute intracranial process seen at this time. CT Cervical Spine: Unenhanced CT of the cervical spine was performed with bone and soft tissue window settings submitted . Coronal and sagittal reconstruction is obtained. Chronic anterolisthesis of C6 on C7 measuring 3.8 mm in related to severe degenerative change of the cervical apophyseal joints. No acute subluxation seen. No evidence for acute cervical fracture . Sc attered degenerative disc disease and spondylosis. Biapical scarring. IMPRESSION: 1. No evidence for acute fracture or subluxation of the cervical spine.
[2020-06-13] MEDS ORDERED: LIDOCAINE/EPINEPHR/TETRACAINE 5 ML BOTTLE TOPICAL ONE (17:19)
[2020-06-13] MEDS ORDERED: ACETAMINOPHEN TAB 325 MG TAB PO PRN (18:22)
[2020-06-13] MEDS ORDERED: IBUPROFEN 400 MG TAB PO PRN (18:22)
[2020-06-13] MEDS ORDERED: NALOXONE 0.4 MG/ML 1 ML VIAL IV PRN (18:22)
[2020-06-13] MEDS ORDERED: LIDOCAINE 1%-EPI 1:100,000 20 ML VIAL SQ STA (18:25)
[2020-06-13 18:34] LABS: Basophils % (A) 0 %; Eosinophils # (A) 0.1 k/uL (0-0.7); Eosinophils % (A) 2 %; HCT 41.9 % (39.0-53.0); HGB 13.5 gm/dL (13.0-17.5); Lymphocytes % (A) 16 %; MCH 29.9 pg (25.0-35.0); MCHC 32.1 g/dL (31.0-37.0); MCV 93.1 fL (80.0-100.0); Mean Platelet Volume 7.1; Monocytes # (A) 0.4 k/uL (0-1.0); Monocytes % (A) 6 %; Neutrophils # (A) 4.5 k/uL (1.3-7.7); Neutrophils % (A) 74 %; Platelet Count 185 k/uL (150-450); RDW 14.2 % (11.5-15.5)
[2020-06-13 18:42] LABS: Partial Thromboplastin Time 23.8 sec (22.0-30.0)
[2020-06-13 18:43] LABS: ALT 17 U/L (4-49); AST 30 U/L (17-59); African American GFR (CKD) >90 (>60 ml/min/1.73 sqM); Albumin 3.8 g/dL (3.5-5.0); Alkaline Phosphatase 82 U/L (38-126); Anion Gap 7 mmol/L; Blood Urea Nitrogen 24 mg/dL (9-20); Calcium 8.8 mg/dL (8.4-10.2); Carbon Dioxide 28 mmol/L (22-30); Chloride 103 mmol/L (98-107); Glucose 84 mg/dL (74-99); Non-African American GFR(CKD) 83 (>60 ml/min/1.73 sqM); Potassium 3.8 mmol/L (3.5-5.1); Sodium 138 mmol/L (137-145); Total Bilirubin 0.6 mg/dL (0.2-1.3); Total Protein 6.1 g/dL (6.3-8.2)
[2020-06-14 02:35] VITALS: RESP 18
[2020-06-14 03:54] LABS: Basophils % (A) 0 %; Eosinophils # (A) 0.1 k/uL (0-0.7); Eosinophils % (A) 2 %; HCT 34.8 % (39.0-53.0); HGB 11.3 gm/dL (13.0-17.5); Lymphocytes # (A) 1.5 k/uL (1.0-4.8); Lymphocytes % (A) 21 %; MCH 30.3 pg (25.0-35.0); MCHC 32.4 g/dL (31.0-37.0); MCV 93.5 fL (80.0-100.0); Mean Platelet Volume 7.2; Monocytes # (A) 0.7 k/uL (0-1.0); Monocytes % (A) 9 %; Neutrophils # (A) 4.8 k/uL (1.3-7.7); Neutrophils % (A) 67 %; Platelet Count 185 k/uL (150-450); RBC 3.72 m/uL (4.30-5.90); RDW 14.3 % (11.5-15.5); WBC 7.2 k/uL (3.8-10.6)
[2020-06-14] MEDS ORDERED: ESCITALOPRAM 10 MG TAB PO SCH (12:30)
[2020-06-14] MEDS ORDERED: LEVOTHYROXINE 50 MCG TAB PO SCH (12:30)
[2020-06-14] MEDS ORDERED: NON FORMULARY DRUG (Dextroamphetamine/Amphetamine [Adderall] 10 MG Tablet) PO SCH (12:30)
[2020-06-14] MEDS ORDERED: buPROPion 75 MG TAB PO SCH (12:30)
--- NOTE | 2020-06-14 12:30 | P.GSHP ---
<Naima Steen - Last Filed: 06/14/20 12:15> History of Present Illness H&P Date: 06/14/20 CHIEF COMPLAINT: Fall with head injury HISTORY OF PRESENT ILLNESS: This is a 84-year-old male with a past medical history of obstructive sleep apnea, hypothyroidism, osteoarthritis, and right leg DVT. Patient denies being on any anticoagulation. Yesterday afternoon patient was walking down a few steps on his porch when he tripped and fell. Patient hit the left side of his forehead on cement and fell into a fence. Patient had a laceration on the left forehead. Patient was unable to get the bleeding from the laceration to stop at home. He then came into the ER for further evaluation. He received sutures in the ER. And his head was bandaged. He denies any loss of consciousness. Patient denies any headache or vision changes. He denies any dizziness. Patient denies any abdominal pain or any new pain this morning. Patient has been admitted to trauma service. PAST MEDICAL HISTORY: See list. PAST SURGICAL HISTORY: See list. MEDICATIONS: See list. ALLERGIES: See list. SOCIAL HISTORY: No illicit drug use. REVIEW OF SYSTEMS: CONSTITUTIONAL: Denies fever or chills. HEENT: Denies blurred vision, vision changes, or eye pain. Denies hemoptysis ENDOCRINE: Denies heat or cold intolerance. CARDIOVASCULAR: Denies chest pain or pressure. RESPIRATORY: No shortness of breath. GASTROINTESTINAL: Denies abdominal pain. Denies nausea or vomiting. NEURO: Denies history of seizures. PSYCH: No depression or suicidal ideation HEMATOLOGIC: Denies bleeding disorders. LYMPHATIC: The patient denies any lumps and bumps around the neck. GENITOURINARY: Denies any blood in urine or increased urinary frequency. MUSCULOSKELETAL: Denies myalgias. Denies joint swelling. Denies decreased range of motion beyond patients baseline. SKIN: Denies pruitis. Denies rash. PHYSICAL EXAM: VITAL SIGNS: Reviewed GENERAL: Well-developed in no acute distress. HEENT: No sclera icterus. Extraocular movements grossly intact. Moist buccal mucosa. Pupils are equal, round and responsive to light Head is normocephalic. Hears conversational speech. No nasal drainage. Patient has left forehead hematoma in which his head is bandaged. There is some old blood noted on the left side of the bandage. NECK: Supple without lymphadenopathy. CHEST: Non-labored respirations and equal bilateral excursions. CARDIOVASCULAR: Palpable 2+ radial pulses. ABDOMEN: Soft. Nondistended. Nontender MUSCULOSKELETAL: No clubbing or cyanosis. NEUROLOGIC: No focal or lateralizing signs. Cranial nerves II through XII grossly intact. PSYCH: Appropriate affect. Alert and oriented to person, place and time. SKIN: Well perfused. Good skin turgor. LABORATORY DATA: WBC 7.2 hemoglobin 13.5 down to 11.3 platelets 185 and 0.75 LFTs normal IMAGING: Computed tomography scan of the brain and cervical spine show age-related atrop hic and chronic small vessel ischemic change without acute intracranial process. And no evidence of acute fracture or subluxation of the cervical spine ASSESSMENT: 1. Trip and fall with traumatic hematoma on the left forehead 2. Scalp laceration of the left forehead status post suturing in the ER 3. History of osteoarthritis 4. History of depression 5. History of hypothyroidism 6. History of obstructive sleep apnea 7. History of right thigh DVT not currently on anticoagulation PLAN: -Continue Tylenol and Motrin as needed for pain -Continue supportive care -Resume home medications -Physical therapy and occupational therapy consulted -Further recommendations forthcoming per surgeon Physician Research Contracts Supervisor note has been reviewed by physician. Signing provider agrees with the documented findings, assessment, and plan of care. Past Medical History Past Medical History: Deep Vein Thrombosis (DVT), Memory Impairment, Osteoarthritis (OA), Sleep Apnea/CPAP/BIPAP, Thyroid Disorder Additional Past Medical History / Comment(s): hx. DVT right thigh, uses CPAP, fell & fx. pelvis 2014 History of Any Multi-Drug Resistant Organisms: None Reported Past Surgical History: Appendectomy, Orthopedic Surgery Additional Past Surgical History / Comment(s): cervical surg, cataract surg., repair left tibial fx. 2012, shoulder surgery Past Anesthesia/Blood Transfusion Reactions: No Reported Reaction Past Psychological History: No Psychological Hx Reported Smoking Status: Never smoker Past Alcohol Use History: Daily Additional Past Alcohol Use History / Comment(s): 1-2 drinks/day Past Drug Use History: None Reported - Past Family History Mother Family Medical History: No Reported History Additional Family Medical History / Comment(s): at 102 Medications and Allergies Home Medications Medication Instructions Recorded Confirmed Type Levothyroxine Sodium [Synthroid] 50 mcg PO DAILY 06/05/16 06/13/20 History Dextroamphetamine/Amphetamine 10 mg PO DAILY 06/13/20 06/13/20 History [Adderall] Escitalopram [Lexapro] 10 mg PO DAILY 06/13/20 06/13/20 History buPROPion [Wellbutrin] 75 mg PO DAILY 06/13/20 06/13/20 History Bacitracin Zinc/Polymyxin B 1 applic TOPICAL DAILY 7 Days #15 06/14/20 Rx [Bacitracin-Polymyxin Ointment] gm Allergies Allergy/AdvReac Type Severity Reaction Status Date / Time Penicillins Allergy Unknown Verified 06/13/20 20:00 Surgical - Exam Vital Signs Temp Pulse Resp BP Pulse Ox 97.9 F 73 20 188/73 97 06/13/20 15:53 06/13/20 15:53 06/13/20 15:53 06/13/20 15:53 06/13/20 15:53 Results - Labs 06/14/20 03:37 06/13/20 18:23 Abnormal Lab Results - Last 24 Hours (Table) 06/13/20 06/14/20 Range/Units 18:23 03:37 RBC 3.72 L (4.30-5.90) m/uL Hgb 11.3 L (13.0-17.5) gm/dL Hct 34.8 L (39.0-53.0) % BUN 24 H (9-20) mg/dL Total Protein 6.1 L (6.3-8.2) g/dL Diabetes panel 06/13/20 Range/Units 18:23 Sodium 138 (137-145) mmol/L Potassium 3.8 (3.5-5.1) mmol/L Chloride 103 (98-107) mmol/L Carbon Dioxide 28 (22-30) mmol/L BUN 24 H (9-20) mg/dL Creatinine 0.75 (0.66-1.25) mg/dL Glucose 84 (74-99) mg/dL Calcium 8.8 (8.4-10.2) mg/dL AST 30 (17-59) U/L ALT 17 (4-49) U/L Alkaline Phosphatase 82 (38-126) U/L Total Protein 6.1 L (6.3-8.2) g/dL Albumin 3.8 (3.5-5.0) g/dL Calcium panel 06/13/20 Range/Units 18:23 Calcium 8.8 (8.4-10.2) mg/dL Albumin 3.8 (3.5-5.0) g/dL Pituitary panel 06/13/20 Range/Units 18:23 Sodium 138 (137-145) mmol/L Potassium 3.8 (3.5-5.1) mmol/L Chloride 103 (98-107) mmol/L Carbon Dioxide 28 (22-30) mmol/L BUN 24 H (9-20) mg/dL Creatinine 0.75 (0.66-1.25) mg/dL Glucose 84 (74-99) mg/dL Calcium 8.8 (8.4-10.2) mg/dL Adrenal panel 06/13/20 Range/Units 18:23 Sodium 138 (137-145) mmol/L Potassium 3.8 (3.5-5.1) mmol/L Chloride 103 (98-107) mmol/L Carbon Dioxide 28 (22-30) mmol/L BUN 24 H (9-20) mg/dL Creatinine 0.75 (0.66-1.25) mg/dL Glucose 84 (74-99) mg/dL Calcium 8.8 (8.4-10.2) mg/dL Total Bilirubin 0.6 (0.2-1.3) mg/dL AST 30 (17-59) U/L ALT 17 (4-49) U/L Alkaline Phosphatase 82 (38-126) U/L Total Protein 6.1 L (6.3-8.2) g/dL Albumin 3.8 (3.5-5.0) g/dL <Elif Bridges - Last Filed: 06/14/20 19:14> History of Present Illness CHIEF COMPLAINT: Status post fall from stairs HISTORY OF PRESENT ILLNESS: The patient is a 84 year old male brought into the hospital after falling off flight of stairs onto cement floor with trauma to the left forehead. He had moderate profuse bleeding and was brought to the emergency room as a result. Per discussion with ER provider, multiple sutures were placed to control for bleeding. As result of the moderate bleeding he was admitted for observation. Patient is denies any headaches. Denies any double vision. He has tolerated diet. He has ambulated with physical therapy. He is also been evaluated for home healthcare. Patient reports feeling well. PAST MEDICAL HISTORY: See list and reviewed PAST SURGICAL HISTORY: See list and reviewed MEDICATIONS: See list and reviewed ALLERGIES: See list and reviewed SOCIAL HISTORY: See list and reviewed FAMILY HISTORY: See list and reviewed REVIEW OF ORGAN SYSTEMS: CONSTITUTIONAL: No fevers or chills. EYES: Denies any trouble with vision. No glasses. HEENT: No difficulties with hearing. No nosebleeds. No difficulty swallowing. RESPIRATORY: Denies pneumonia. Has sleep apnea. CARDIOVASCULAR: Denies any chest pain, palpitations, or recent heart attacks. GASTROINTESTINAL: Denies fatty food intolerance. Denies change in bowel habits and gas bloat. GENITOURINARY: Denies any blood in urine or increased urinary frequency. NEUROLOGICAL: Denies any numbness or tingling along the distal extremities. No seizure disorders or headaches. MUSCULOSKELETAL: Has back pain, stiffness or joint arthritis. SKIN: No current skin cancer. No rash. PSYCHIATRIC: Has depression. No suicidal thoughts. Has dementia. ENDOCRINE: Has hypothyroidism. Denies any blood sugar glucose intolerance. HEME/LYMPHATIC: Denies any lumps and bumps around the neck. Past deep venous thrombosis. ALLERGY/IMMUNOLOGY: No immunoglobulin therapy. No immune deficiencies. BREAST: Denies current breast lumps, pain or nipple discharge. PHYSICAL EXAM: VITALS: Reviewed CONSTITUTIONAL: Well developed and in no acute distress. EYES: Conjuctivae without sclera icterus. Extraocular movements grossly intact. HEAD, EARS, NOSE, THROAT: Moist buccal mucosa. Hears conversational speech. No nasal drainage. He has dried blood along the occiput including left for head. Dressings were discontinued with dried blood. Multiple sutures intact. Less than 1 cm blue ischemic area at central region of prior hematoma. NECK: Supple. No JV distention. No thyroidomegaly. RESPIRATORY: Non-labored respirations and equal bilateral excursions. No gross wheezes. CARDIOVASCULAR: Regular rate and rhythm. Extremities without moderate edema. Palpable 2+ radial pulses. ABDOMEN: Soft. Non-tender. Nondistended. LYMPH: No neck lymphadenopathy. MUSCULOSKELETAL: Nail and fingers with good capillary refill. SKIN: Warm and well perfused with good skin turgor. NEUROLOGIC: Cranial nerves II through XII grossly intact. Sensation upper and extremities intact. No focal or lateralizing signs. PSYCH: Appropriate affect. Alert and oriented to person, place and time. Displays appropriate insight. CLINCAL LABS: Reviewed. Hemoglobin dropped from 13.5-11.5. White blood cell count normal IMAGING: Independently reviewed CT of the head demonstrates no intracranial bleeds. This is my independent interpretation. RADIOLOGY: Report reviewed reviewed her CT neck demonstrated no subluxation along these cervical spine. ASSESSMENT: 1. Abnormal computed tomography scan 2. Abdominal pain 3. Inflammatory bowel disease, cannot be excluded PLAN: 1. Wound care instructions including cleansing the skin with hydrogen peroxide and antibacterial soap reviewed. 2. Also recommend bacitracin ointment daily 3. Removal of sutures in office in 7 days 4. Home healthcare referral arranged. 5. Overall, patient stable for discharge Surgical - Exam Vital Signs Temp Pulse Resp BP Pulse Ox 97.9 F 73 20 188/73 97 06/13/20 15:53 06/13/20 15:53 06/13/20 15:53 06/13/20 15:53 06/13/20 15:53 Results - Labs 06/14/20 03:37 06/13/20 18:23 Abnormal Lab Results - Last 24 Hours (Table) 06/14/20 Range/Units 03:37 RBC 3.72 L (4.30-5.90) m/uL Hgb 11.3 L (13.0-17.5) gm/dL Hct 34.8 L (39.0-53.0) % Assessment and Plan (1) Acute blood loss anemia Status: Acute Code(s): D62 - ACUTE POSTHEMORRHAGIC ANEMIA SNOMED Code(s): 352099715 (2) Dementia Status: Acute Code(s): F03.90 - UNSPECIFIED DEMENTIA WITHOUT BEHAVIORAL DISTURBANCE SNOMED Code(s): 63400222 (3) Depressive disorder Status: Acute Code(s): F32.9 - MAJOR DEPRESSIVE DISORDER, SINGLE EPISODE, UNSPECIFIED SNOMED Code(s): 80800956 (4) Fall Status: Acute Code(s): W19.XXXA - UNSPECIFIED FALL, INITIAL ENCOUNTER SNOMED Code(s): 1356055 (5) Traumatic hematoma of forehead Status: Acute Code(s): S00.83XA - CONTUSION OF OTHER PART OF HEAD, INITIAL ENCOUNTER SNOMED Code(s): 191023644
--- NOTE | 2020-06-14 14:36 | P.DS ---
<Naima Steen - Last Filed: 06/14/20 14:33> Providers Expected date of discharge: 06/14/20 Hospital Course: Discharge diagnosis 1. Trip and fall with traumatic hematoma on the left forehead 2. Scalp laceration of the left forehead status post suturing in the ER 3. History of osteoarthritis 4. History of depression 5. History of hypothyroidism 6. History of obstructive sleep apnea 7. History of right thigh DVT not currently on anticoagulation Hospital course This is a 84-year-old male with a past medical history of obstructive sleep apnea, hypothyroidism, osteoarthritis, and right leg DVT. Patient denies being on any anticoagulation. Yesterday afternoon patient was walking down a few steps on his porch when he tripped and fell. Patient hit the left side of his forehead on cement and fell into a fence. Patient had a laceration on the left forehead. Patient was unable to get the bleeding from the laceration to stop at home. He then came into the ER for further evaluation. He received sutures in the ER. And his head was bandaged. He denies any loss of consciousness. Patient denies any headache or vision changes. He denies any dizziness. Patient denies any abdominal pain or any new pain this morning. Patient had computed tomography scan of the brain and cervical spine that showed age-related atrophic and chronic small vessel ischemic change without acute intracranial process. And no evidence of acute fracture or subluxation of the cervical spine. Patient denies any pain. Denies any headache. He has been up and ambulating without difficulty. He is tolerating diet. His head dressing has been changed. He is afebrile. He is stable for discharge. Physician Aircraft Launch And Recovery Technician note has been reviewed by physician. Signing provider agrees with the documented findings, assessment, and plan of care. Patient Condition at Discharge: Stable Plan - Discharge Summary Discharge Rx Participant: Yes New Discharge Prescriptions: New Bacitracin Zinc/Polymyxin B [Bacitracin-Polymyxin Ointment] 1 applic TOPICAL DAILY 7 Days #15 gm Continue Levothyroxine Sodium [Synthroid] 50 mcg PO DAILY buPROPion [Wellbutrin] 75 mg PO DAILY Dextroamphetamine/Amphetamine [Adderall] 10 mg PO DAILY Escitalopram [Lexapro] 10 mg PO DAILY Discharge Medication List Levothyroxine Sodium [Synthroid] 50 mcg PO DAILY 06/05/16 [History] Dextroamphetamine/Amphetamine [Adderall] 10 mg PO DAILY 06/13/20 [History] Escitalopram [Lexapro] 10 mg PO DAILY 06/13/20 [History] buPROPion [Wellbutrin] 75 mg PO DAILY 06/13/20 [History] Bacitracin Zinc/Polymyxin B [Bacitracin-Polymyxin Ointment] 1 applic TOPICAL DAILY 7 Days #15 gm 06/14/20 [Rx] Follow up Appointment(s)/Referral(s): [facility], [NON-STAFF] - 1-2 Days Lisa Sotomayor MD [Primary Care Provider] - 06/18/20 2:30 pm (First Available) Elif Bridges MD [STAFF PHYSICIAN] - 06/19/20 5:15 pm Patient Instructions/Handouts: Fall Prevention for Older Adults (DC) Activity/Diet/Wound Care/Special Instructions: Suture removal at follow-up appointment on 06/19/[address] Poppy Lara to use Tylenol [id number] every 4-6 hours as needed for pain Recommend using hydrogen peroxide [id number], apply daily to head laceration Activity as tolerated Diet regular Discharge Disposition: HOME WITH HOME HEALTH SERVICES <Elif Bridges - Last Filed: 06/14/20 19:17> Providers Date of admission: 06/13/20 18:54 Attending physician: Elif Bridges Primary care physician: Lisa Sotomayor MD - Discharge Diagnosis(es) (1) Acute blood loss anemia Status: Acute (2) Dementia Status: Acute (3) Depressive disorder Status: Acute (4) Fall Status: Acute (5) Traumatic hematoma of forehead Status: Acute Hospital Course: Please see additional documentation below COURSE: The patient is a 84 year old male brought into the hospital after falling off flight of stairs onto cement floor with trauma to the left forehead. He had moderate bleeding at the scene. He presented with uncontrolled bleeding from a left traumatic head laceration. CT of the head was negative for intracranial bleeds. Additionally, hemoglobin had dropped 2 g but he was clinically stable. He was monitored with physical therapy, occupational therapy with arrangements for home health care. Prior to discharge, dressings were changed. Sutures were assessed. No signs of infection. Follow-up in the office in 5-7 days for suture removal.
[2020-06-14 15:11] VITALS: BP 170/88; PULSE 67; TEMP 97.6
== END 2020-06-14 15:44 | disposition home health service (06) ==
LOC: EC 15:48 → 6NMEDSUR 18:54
PROVIDERS: ADMIT Surgery Plastic and Reconstructive Surgery; ATTEND Surgery Plastic and Reconstructive Surgery
DX: S01.81XA Laceration without foreign body of other part of head, initial encounter (principal); D62 Acute posthemorrhagic anemia; E03.9 Hypothyroidism, unspecified; G47.33 Obstructive sleep apnea (adult) (pediatric); M19.90 Unspecified osteoarthritis, unspecified site; F03.90 Unspecified dementia, unspecified severity, without behavioral disturbance, psychotic disturbance, mood disturbance, and anxiety; R41.3 Other amnesia; F32.9 Major depressive disorder, single episode, unspecified; Z23 Encounter for immunization; Z79.890 Hormone replacement therapy; Z79.899 Other long term (current) drug therapy; Z88.0 Allergy status to penicillin; Z86.718 Personal history of other venous thrombosis and embolism; Z99.89 Dependence on other enabling machines and devices; Z91.81 History of falling; Z87.81 Personal history of (healed) traumatic fracture; Z98.49 Cataract extraction status, unspecified eye; Z90.49 Acquired absence of other specified parts of digestive tract; Z98.890 Other specified postprocedural states; Z87.891 Personal history of nicotine dependence; W10.8XXA Fall (on) (from) other stairs and steps, initial encounter; Y93.01 Activity, walking, marching and hiking; Y92.008 Other place in unspecified non-institutional (private) residence as the place of occurrence of the external cause
CPT/HCPCS: 12001; 90471; 99285; 36415; 97162; 97166; 86900; 86901; 80053; 85025 ×2; 85610; 85730; 86850; 72125; 70450; 90715; G0378 ×2

== ENCOUNTER 2020-06-21 10:32 | Day surgery (SDC) | payer MEDICARE, OTHER ==
[2020-06-20 09:21] VITALS: BMI 27.9
[~2020-06-21 10:32] MED LIST changes: -ACETAMINOPHEN TAB 500 MG TAB PO ONE; -CLINDAMYCIN 900 MG in DEXTROSE 5% IN WATER 50 ML IVPB ONE; -DEXAMETHASONE SOD PHOSPHATE 10 MG/ML 1 ML VIAL IV ONE; +HEPARIN SODIUM,PORCINE 5,000 UNIT/ML 1 ML VIAL SQ PRN; -HYDROmorphone 1 MG/ML 1 ML SYRINGE IVP PRN; -LIDOCAINE 1% 20 ML VIAL (10MG/ML) FOR IV START INTRADERMA PRN; -MELOXICAM 7.5 MG TAB PO ONE; -MIDAZOLAM 2 MG/2 ML VIAL IV PRN; -ONDANSETRON 4 MG/2 ML VIAL IVP ONE; +Pre Op ABX Message 1 EACH MISC MISCELLANE ONE; -SCOPOLAMINE 1.5MG/72HR PATCH TRANSDERM ONE; -TRANEXAMIC ACID 1,000 MG in SODIUM CHLORIDE 0.9% 100 ML IVPB ONE
[2020-06-21] MEDS ORDERED: ONDANSETRON 4 MG/2 ML VIAL ONE (10:46)
[2020-06-21] MEDS ORDERED: LACTATED RINGERS 1,000 ML IV ONE (11:01)
--- NOTE | 2020-06-21 11:06 | P.GSHP ---
History of Present Illness H&P Date: 06/21/20 CHIEF COMPLAINT: Traumatic laceration left forehead HISTORY OF PRESENT ILLNESS: The patient is a 84 year-old male who 1 week ago fell off cement stairs and sustained large traumatic complex left forehead laceration. He was hospitalized as result of acute blood loss anemia. He had moderate bleeding. He presented to the office with necrosis of his forehead laceration. He presents here for excision and closure of left forehead laceration. PAST MEDICAL HISTORY: Please see list and reviewed PAST SURGICAL HISTORY: Please see list and reviewed MEDICATIONS: Please see list and reviewed ALLERGIES: Please see list and reviewed SOCIAL HISTORY:Please see list and reviewed FAMILY HISTORY: Please see list and reviewed REVIEW OF ORGAN SYSTEMS: CONSTITUTIONAL: No reports of fevers or chills. GI: Denies any blood in stools or constipation. PHYSICAL EXAM: VITAL SIGNS: Stable SKIN: Well perfused. Good skin turgor. Musculoskeletal: No clubbing cyanosis or edema GENERAL: Well developed and in no acute distress. Pleasant. HEENT: No sclera icterus. Extraocular movements grossly intact. Moist buccal mucosa. Head is traumatic, normocephalic. Four (4) cm complex left forehead laceration with multiple sutures and ischemia of stellate type. Hears conversational speech. No nasal drainage. NECK: Supple without lymphadenopathy. No JV distention. CHEST: Non-labored respirations and equal bilateral excursions. CARDIOVASCULAR: Regular rate and rhythm. Palpable 2+ radial pulses. ABDOMEN: Soft. Non-tender. Nondistended. NEUROLOGIC: No focal or lateralizing signs. PSYCH: Appropriate affect. Alert and oriented to person, place and time. ASSESSMENT: 1. Complexed left for head laceration status post fall, sequela PLAN: 1. Will recheck CBC due to acute blood loss anemia following his fall and hematoma 1 week ago. 2. Will need debridement including complex repair of left forehead laceration Past Medical History Past Medical History: Deep Vein Thrombosis (DVT), Memory Impairment, Sleep Apnea/CPAP/BIPAP, Thyroid Disorder Additional Past Medical History / Comment(s): hx. DVT right thigh, uses CPAP, fell & fx. pelvis 2015, constipation, forehead laceration from fall off porch 06/13/20-seen in [facility]- difficulty stopping the bleeding per , has problem with balance-left leg is shorter than rt History of Any Multi-Drug Resistant Organisms: None Reported Past Surgical History: Appendectomy, Orthopedic Surgery Additional Past Surgical History / Comment(s): cervical laminectomy, vania cataract., repair left tibial and ankle fx after injury- 2011, rt shoulder reversal Past Anesthesia/Blood Transfusion Reactions: No Reported Reaction Smoking Status: Never smoker - Past Family History Mother Family Medical History: No Reported History Additional Family Medical History / Comment(s): . Medications and Allergies Home Medications Medication Instructions Recorded Confirmed Type Levothyroxine Sodium [Synthroid] 50 mcg PO DAILY 06/05/16 06/20/20 History Dextroamphetamine/Amphetamine 10 mg PO DAILY 06/13/20 06/20/20 History [Adderall] Escitalopram [Lexapro] 10 mg PO DAILY 06/13/20 06/20/20 History buPROPion [Wellbutrin] 75 mg PO DAILY 06/13/20 06/20/20 History Cholecalciferol (Vitamin D3) 125 mcg PO DAILY 06/20/20 06/20/20 History [Vitamin D3 (5000 Iu)] Coq10 1 tab PO DAILY 06/20/20 06/20/20 History Cyanocobalamin (Vitamin B-12) 1,000 mcg PO DAILY 06/20/20 06/20/20 History [Vitamin B-12] Joint Support 2 tab PO DAILY 06/20/20 06/20/20 History Liver Support 4 tab PO DAILY 06/20/20 06/20/20 History Memory Support 1 tab PO DAILY 06/20/20 06/20/20 History Perfect Amino 5 tab PO DAILY 06/20/20 06/20/20 History Turmeric Root Extract [Turmeric] 500 mg PO DAILY 06/20/20 06/20/20 History Vitamin E 450 unit PO DAILY 06/20/20 06/20/20 History Zinc(Dose Unknown) 1 tab PO DAILY 06/20/20 06/20/20 History Allergies Allergy/AdvReac Type Severity Reaction Status Date / Time Penicillins Allergy Unknown Verified 06/20/20 09:05 Surgical - Exam Vital Signs Temp Pulse Resp BP Pulse Ox 97.8 F 66 18 184/81 98 06/21/20 10:53 06/21/20 10:53 06/21/20 10:53 06/21/20 10:53 06/21/20 10:53
[2020-06-21 11:34] LABS: Basophils % (A) 1 %; Eosinophils # (A) 0.2 k/uL (0-0.7); Eosinophils % (A) 5 %; HCT 34.8 % (39.0-53.0); Lymphocytes # (A) 1.1 k/uL (1.0-4.8); Lymphocytes % (A) 27 %; MCH 32.1 pg (25.0-35.0); MCHC 34.4 g/dL (31.0-37.0); MCV 93.2 fL (80.0-100.0); Mean Platelet Volume 6.8; Monocytes # (A) 0.3 k/uL (0-1.0); Monocytes % (A) 7 %; Neutrophils # (A) 2.4 k/uL (1.3-7.7); Neutrophils % (A) 58 %; Platelet Count 195 k/uL (150-450); RBC 3.73 m/uL (4.30-5.90); RDW 14.2 % (11.5-15.5); WBC 4.1 k/uL (3.8-10.6)
[2020-06-21] MEDS ORDERED: ePHEDrine SULFATE/0.9% NACL/PF 50 MG/5 ML SYRINGE IV ONE (11:46)
[2020-06-21] MEDS ORDERED: PROPOFOL 10 MG/ML 20 ML VIAL IV ONE (11:46)
[2020-06-21] MEDS ORDERED: fentaNYL (PF) 50 MCG/ML 2 ML AMP ONE (11:46)
[2020-06-21] MEDS ORDERED: LIDOCAINE 1% INJ 10MG/ML (20 ML MDV) ONE (11:46)
[2020-06-21] MEDS ORDERED: LIDOCAINE 1%-EPI 1:100,000 20 ML VIAL SQ ONE (12:32)
[2020-06-21 13:44] VITALS: RESP 16; TEMP 97.9
--- NOTE | 2020-06-21 14:00 | P.PCN ---
Date of Procedure: 06/21/20 Description of Procedure: SURGEON: LEIF BRIDGES MD TOOLS PROGRAMMER: None. PREOPERATIVE DIAGNOSES: 1. Complex traumatic left forehead laceration with hematoma 2. Status post fall from concrete stairs, sequelae 3. History of acute blood loss anemia due to traumatic left forehead laceration 4. Hypertensive heart disease 5. Depressive disorder 6. Obstructive sleep apnea 7. Hypothyroidism 8. History of deep venous thrombosis 9. Memory impairment POSTOPERATIVE DIAGNOSES: 1. Complex traumatic left forehead laceration with hematoma, 4 x 2.5 cm 2. Status post fall from concrete stairs, sequelae 3. History of acute blood loss anemia due to traumatic left forehead laceration 4. Hypertensive heart disease 5. Depressive disorder 6. Obstructive sleep apnea 7. Hypothyroidism 8. History of deep venous thrombosis 9. Memory impairment PROCEDURES PERFORMED: 1. Excisional debridement of complex left forehead laceration to muscle, 4 x 2.5 cm 2. Complex closure 4 cm by 2.5 left forehead laceration 3. Waterjet lavage 1 L normal saline, left for her, 4 x 2.5 cm Anesthesia: LMA local Estimated Blood Loss (ml): 10 Pathology: None Condition: stable Disposition: same day COMPLICATIONS: None. Operative Findings: 1. Complex traumatic left forehead laceration 4 x 2.5 cm with central stellate necrosis completely debrided to the muscle 2. Complex closure for undermined tissue with skin flaps performed. INDICATIONS: The patient is a 84-year-old male who recently fell from concrete stairs with sequelae of traumatic left forehead laceration with hematoma and acute blood loss anemia. He presented with profuse bleeding where emergency room providers tried to control hemorrhage from the left forehead. He returned with necrosis of his wound. Excisional debridement with closure was described. Benefits and risks of surgical intervention were described including bleeding, pain, infection, cosmetic deformity, including scarring were reviewed in detail of which the patient wished to proceed. Informed consent was obtained. DESCRIPTION OR PROCEDURE: Patient was brought into the operating room and placed in supine position. After LMA, the forehead was prepped and draped in a standard sterile fashion. Ioban was placed along the draping to prevent exposure to the eyes. Timeout protocol was confirmed with the surgical team regarding the patient's name, procedure to be performed including preoperative medications. DVT prophylaxis was confirmed. The left forehead defect was measured with a ruler of 4 x 2.5 cm. Thick eschar with central stellate necrosis was debrided using combination of mechanical debridement using surgical scrub brush, sponge and sharp debridement using a sharp scissors was debrided to the muscle. The stellate necrosis was debrided. A field block was placed of the forehead using 15 mL local. After debridement, the old hematoma was expressed. Pulse lavage using 1 L normal saline was used for waterjet debridement. Remaining skin flaps were debrided to healthy bleeding tissue and with undermining to prepare for closure of the excision. To accommodate for tissue loss, 3-0 proline in a running suture was placed to reapproximate the laceration. The skin was cleansed with hydrogen peroxide followed by coverage with Optifoam dressing. At the end of the procedure, needle, sponge, and instrument count was verified correct by respiratory therapy technician. The patient tolerated the procedure well. Plan - Discharge Summary Discharge Rx Participant: Yes New Discharge Prescriptions: Continue Levothyroxine Sodium [Synthroid] 50 mcg PO DAILY buPROPion [Wellbutrin] 75 mg PO DAILY Dextroamphetamine/Amphetamine [Adderall] 10 mg PO DAILY Cyanocobalamin (Vitamin B-12) [Vitamin B-12] 1,000 mcg PO DAILY Escitalopram [Lexapro] 10 mg PO DAILY Perfect Amino 5 tab PO DAILY Memory Support 1 tab PO DAILY Liver Support 4 tab PO DAILY Joint Support 2 tab PO DAILY Zinc(Dose Unknown) 1 tab PO DAILY Coq10 1 tab PO DAILY Discontinued Vitamin E 450 unit PO DAILY Turmeric Root Extract [Turmeric] 500 mg PO DAILY Cholecalciferol (Vitamin D3) [Vitamin D3 (5000 Iu)] 125 mcg PO DAILY Discharge Medication List Levothyroxine Sodium [Synthroid] 50 mcg PO DAILY 06/05/16 [History] Dextroamphetamine/Amphetamine [Adderall] 10 mg PO DAILY 06/13/20 [History] Escitalopram [Lexapro] 10 mg PO DAILY 06/13/20 [History] buPROPion [Wellbutrin] 75 mg PO DAILY 06/13/20 [History] Coq10 1 tab PO DAILY 06/20/20 [History] Cyanocobalamin (Vitamin B-12) [Vitamin B-12] 1,000 mcg PO DAILY 06/20/20 [Histor y] Joint Support 2 tab PO DAILY 06/20/20 [History] Liver Support 4 tab PO DAILY 06/20/20 [History] Memory Support 1 tab PO DAILY 06/20/20 [History] Perfect Amino 5 tab PO DAILY 06/20/20 [History] Zinc(Dose Unknown) 1 tab PO DAILY 06/20/20 [History] Follow up Appointment(s)/Referral(s): Elif Bridges MD [STAFF PHYSICIAN] - 06/26/20 4:00 pm Patient Instructions/Handouts: *Surgery [facility] - (Anesthesia) Discharge Instructions Outpatient Surgery, Care For Your Stitches (ED), Facial Laceration (ED) Activity/Diet/Wound Care/Special Instructions: DO NOT REMOVE DRESSING! Wear protective hat--beanie or skull cap--for best protection DO NOT RESUME tumeric, Vit E, until agreeable with your surgeon Discharge Disposition: HOME SELF-CARE
[2020-06-21 15:28] VITALS: BP 153/72; PULSE 82
== END 2020-06-21 15:51 | disposition home or self-care (01) ==
LOC: OR 10:32
PROVIDERS: ATTEND Surgery Plastic and Reconstructive Surgery
DX: S01.81XA Laceration without foreign body of other part of head, initial encounter (principal); S00.83XA Contusion of other part of head, initial encounter; I96 Gangrene, not elsewhere classified; W10.9XXA Fall (on) (from) unspecified stairs and steps, initial encounter; R41.3 Other amnesia; E03.9 Hypothyroidism, unspecified; G47.33 Obstructive sleep apnea (adult) (pediatric); Z99.89 Dependence on other enabling machines and devices; I11.9 Hypertensive heart disease without heart failure; F32.9 Major depressive disorder, single episode, unspecified; Z86.718 Personal history of other venous thrombosis and embolism; Z87.81 Personal history of (healed) traumatic fracture; Z90.89 Acquired absence of other organs; Z98.42 Cataract extraction status, left eye; Z98.41 Cataract extraction status, right eye; Z98.890 Other specified postprocedural states; Z79.890 Hormone replacement therapy; Z79.899 Other long term (current) drug therapy; Z88.0 Allergy status to penicillin
CPT/HCPCS: 85025; 13132; 13133; J1644; J0690; J2405; J2001; J3010; J2704

== ENCOUNTER 2020-11-17 17:22 | Emergency (ER) | payer MEDICARE, OTHER ==
[2020-11-17 17:48] VITALS: RESP 18; TEMP 98.2
[2020-11-17] MEDS ORDERED: KETOROLAC 15 MG/ML 1 ML VIAL IM STA (18:01)
--- NOTE | 2020-11-17 18:46 | XR ---
EXAMINATION TYPE: XR wrist complete LT DATE OF EXAM: 11/17/2020 COMPARISON: NONE HISTORY: Pain TECHNIQUE: 4 views FINDINGS: The radiocarpal joint is intact. There is bony density at the tip of the radial styloid pro cess consistent with an old fracture. Ulnar styloid process is intact. There is osteoarthritis in the carpal bones. There is oblique fracture mid shaft of the ulna. IMPRESSION: Osteoarthritis at the wrist joint and first carpometacarpal joint. No wrist fracture seen . Ulnar fracture noted.
--- NOTE | 2020-11-17 19:29 | ED ---
Upper Extremity HPI - General Chief Complaint: Extremity Injury, Upper Stated Complaint: Fall, wrist injury Time Seen by Provider: 11/17/20 17:49 Source: patient, RN notes reviewed Mode of arrival: ambulatory Limitations: no limitations - History of Present Illness Initial Comments: Patient is an 85-year-old male that presents to the emergency department complaining of left wrist pain. He notes that he was on the phone to someone last night when he follow-up got up out of his chair lost his footing and fell forward. He notes that he cut himself with his left hand. He notes that he does have full range of motion minimal pain in his left wrist but wanted to get it checked out anyways. He was a well-appearing 85-year-old male in no apparent distress or pain. He denied any weakness numbness tingling decreased range of motion or sensation in his left wrist/forearm. He denied any chest pain first breath headache nausea vomiting diarrhea constipation fever fatigue chills. - Related Data Home Medications Medication Instructions Recorded Confirmed Levothyroxine Sodium [Synthroid] 50 mcg PO DAILY 06/05/16 06/20/20 Dextroamphetamine/Amphetamine 10 mg PO DAILY 06/13/20 06/20/20 [Adderall] Escitalopram [Lexapro] 10 mg PO DAILY 06/13/20 06/20/20 buPROPion [Wellbutrin] 75 mg PO DAILY 06/13/20 06/20/20 Coq10 1 tab PO DAILY 06/20/20 06/20/20 Cyanocobalamin (Vitamin B-12) 1,000 mcg PO DAILY 06/20/20 06/20/20 [Vitamin B-12] Joint Support 2 tab PO DAILY 06/20/20 06/20/20 Liver Support 4 tab PO DAILY 06/20/20 06/20/20 Memory Support 1 tab PO DAILY 06/20/20 06/20/20 Perfect Amino 5 tab PO DAILY 06/20/20 06/20/20 Zinc(Dose Unknown) 1 tab PO DAILY 06/20/20 06/20/20 Allergies Allergy/AdvReac Type Severity Reaction Status Date / Time Penicillins Allergy Unknown Verified 11/17/20 17:45 Review of Systems ROS Statement: Those systems with pertinent positive or pertinent negative responses have been documented in the HPI. ROS Other: All systems not noted in ROS Statement are negative. Past Medical History Past Medical History: Deep Vein Thrombosis (DVT), Memory Impairment, Sleep Apnea/CPAP/BIPAP, Thyroid Disorder Additional Past Medical History / Comment(s): hx. DVT right thigh, uses CPAP, fell & fx. pelvis 2015, constipation, forehead laceration from fall off porch 06/13/20-seen in [facility]- difficulty stopping the bleeding per , has problem with balance-left leg is shorter than rt History of Any Multi-Drug Resistant Organisms: None Reported Past Surgical History: Appendectomy, Orthopedic Surgery Additional Past Surgical History / Comment(s): cervical laminectomy, vania cataract., repair left tibial and ankle fx after injury- 2011, rt shoulder reversal Past Anesthesia/Blood Transfusion Reactions: No Reported Reaction Past Psychological History: Depression Smoking Status: Never smoker Past Alcohol Use History: None Reported Past Drug Use History: None Reported - Past Family History Mother Family Medical History: No Reported History Additional Family Medical History / Comment(s): . General Exam Limitations: no limitations General appearance: alert, in no apparent distress Head exam: Present: atraumatic, normocephalic, normal inspection Eye exam: Present: normal appearance, PERRL, EOMI. Absent: scleral icterus, conjunctival injection, periorbital swelling Neck exam: Present: normal inspection Respiratory exam: Present: normal lung sounds bilaterally. Absent: respiratory distress, wheezes, rales, rhonchi, stridor Cardiovascular Exam: Present: regular rate, normal rhythm, normal heart sounds. Absent: systolic murmur, diastolic murmur, rubs, gallop, clicks GI/Abdominal exam: Present: soft, normal bowel sounds. Absent: distended, tenderness, guarding, rebound, rigid Extremities exam: Present: normal inspection, full ROM, normal capillary refill. Absent: tenderness, pedal edema, joint swelling, calf tenderness Neurological exam: Present: alert, oriented X3 Psychiatric exam: Present: normal affect, normal mood Skin exam: Present: warm, dry, intact, normal color. Absent: rash Course Vital Signs 11/17/20 11/17/20 17:45 19:40 Temperature 98.2 F Pulse Rate 101 H 97 Respiratory 18 18 Rate Blood Pressure 155/92 141/77 O2 Sat by Pulse 96 97 Oximetry Medical Decision Making - Medical Decision Making 85-year-old male complaining of left wrist pain after falling last night. X-ray of the left wrist, 15 mg of Toradol ordered. X-ray shows a oblique midshaft ulnar fracture. . Arm was splinted and repeat x-rays of the formal be ordered. Patient denied any pain still. Case discussed with Dr. Lambert, patient discharge home with follow-up to orthopedics. - Radiology Data Radiology results: report reviewed, image reviewed X-ray left wrist: Osteoarthritis at the wrist joint and first metacarpal joint. No wrist fracture seen. Ulnar fracture noted. Oblique fracture midshaft of the ulna. X-ray forearm left: Acute fracture of the midshaft ulna without significant displacement. Disposition Clinical Impression: Left ulnar fracture, Fall Disposition: HOME SELF-CARE Condition: Stable Instructions (If sedation given, give patient instructions): Arm Fracture in Adults (ED) Additional Instructions: Please return to the Emergency Department if symptoms worsen or any other concerns. Follow-up primary care 1-2 days. Follow-up with orthopedics in 1-2 days. Take Tylenol and Motrin as needed for pain. Keep splint on thought the day. Is patient prescribed a controlled substance at d/c from ED?: No Referrals: Lisa Sotomayor MD [Primary Care Provider] - 1-2 days Ghassan Allen PAC [PHYSICIAN CENTRAL OFFICE EQUIPMENT ENGINEER] - 1-2 days Time of Disposition: 20:31
[2020-11-17 19:41] VITALS: BP 141/77; PULSE 97
[2020-11-17] MEDS ORDERED: ACET/COD 300 MG/30 MG STARTER PACK 6 TAB BTL PO STA (19:55)
--- NOTE | 2020-11-17 20:27 | XR ---
EXAMINATION TYPE: XR forearm LT DATE OF EXAM: 11/17/2020 COMPARISON: NONE HISTORY: Pain. Fall. TECHNIQUE: 2 views FINDINGS: There is oblique nondisplaced fracture of the mid shaft of the ulna. There is no dislocatio n. Elbow joint is intact. There is osteoarthritis at the radiocarpal joint. IMPRESSION: Acute fracture of the mid shaft of the ulna without significant displacement.
== END 2020-11-17 19:53 | disposition home or self-care (01) ==
LOC: EC 17:22
DX: S52.292A Other fracture of shaft of left ulna, initial encounter for closed fracture (principal); E07.9 Disorder of thyroid, unspecified; F32.9 Major depressive disorder, single episode, unspecified; Z88.0 Allergy status to penicillin; Z86.718 Personal history of other venous thrombosis and embolism; Z90.49 Acquired absence of other specified parts of digestive tract; W01.0XXA Fall on same level from slipping, tripping and stumbling without subsequent striking against object, initial encounter
CPT/HCPCS: 99283; 96372; 73090; 73110; J1885

== ENCOUNTER → 2020-11-27 | Outpatient (CLI) | payer MEDICARE, OTHER ==
[2020-11-27 14:38] LABS: Appearance,Urine Clear (Clear); Bilirubin,Urine Negative (Negative); Blood,Urine Negative (Negative); Color,Urine Yellow; Glucose,Urine (UA) Negative (Negative); Ketones,Urine Trace (Negative); Leukocyte Esterase,Urine Negative (Negative); Nitrite,Urine Negative (Negative); PH, Urine 6.5 (5.0-8.0); Protein,Urine Negative (Negative); Specific Gravity,Urine 1.014 (1.001-1.035); Urobilinogen,Urine <2.0 mg/dL (<2.0)
--- NOTE | 2020-11-27 14:48 | XR ---
EXAMINATION TYPE: XR chest 2V DATE OF EXAM: 11/27/2020 COMPARISON: 01/19/2019 TECHNIQUE: PA and lateral views submitted. HISTORY: Mental status change FINDINGS: Arthropathy of the left shoulder. Chronic rib deformities are noted as well as clavicular deformities . Patchy subsegmental areas of infiltrate. Underlying COPD and degenerative change of the spine. Tiny bilateral effusions. Chronic appearing mild superior endplate compression fracture lower thoracic sp ine. IMPRESSION: 1. COPD with basilar infiltrate and tiny effusions.
[2020-11-27 20:56] LABS: Basophils # (A) 0.03 X 10*3/uL (0.00-0.10); Basophils % (A) 0.6 %; Eosinophils # (A) 0.03 X 10*3/uL (0.04-0.35); Eosinophils % (A) 0.6 %; HCT 40.4 % (39.6-50.0); HGB 12.7 g/dL (13.0-17.0); Lymphocytes # (A) 1.09 X 10*3/uL (0.90-5.00); Lymphocytes % (A) 21.8 %; MCH 29.9 pg (27.0-32.0); MCHC 31.4 g/dL (32.0-37.0); MCV 95.1 fL (80.0-97.0); Mean Platelet Volume 9.9 fL (9.5-12.2); Monocytes # (A) 0.49 X 10*3/uL (0.20-1.00); Monocytes % (A) 9.8 %; Neutrophils # (A) 3.34 X 10*3/uL (1.80-7.70); Platelet Count 188 X 10*3/uL (140-440); RBC 4.25 X 10*6/uL (4.40-5.60); RDW 14.1 % (11.5-14.5); WBC 4.99 X 10*3/uL (4.50-10.00)
[2020-11-27 20:58] LABS: INR 1.04 (0.90-1.11); Prothrombin Time 11.3 sec (9.9-11.9)
[2020-11-28 00:31] LABS: Erythrocyte Sedimentation Rate 6 mm/Hr (0-20)
[2020-11-28 01:38] LABS: ALT 42 U/L (10-49); AST 33 U/L (14-35); African American GFR (CKD) 69.6 (60.0-200.0); Albumin/Globulin Ratio 2.11 (1.60-3.17); Alkaline Phosphatase 81 U/L (41-126); BUN/Creat Ratio 16.36 Ratio (12.00-20.00); C Reactive Protein <0.4 mg/dL (0.0-0.8); Carbon Dioxide 28.1 mmol/L (21.6-31.8); Chloride 108 mmol/L (96-109); Chol/HDL Ratio 2.92; Cholesterol 152 mg/dL (0-200); Creatine Kinase 155 U/L (35-257); Globulin 1.9 g/dL (1.6-3.3); Glucose 80 mg/dL (70-110); LDL Cholesterol,Calculated 89.2 mg/dL (0.0-131.0); Magnesium 2.1 mg/dL (1.5-2.4); Phosphorus 3.7 mg/dL (2.4-5.1); Potassium 3.3 mmol/L (3.5-5.5); Prostate Specific Antigen 3.6 ng/mL (0.0-6.5); Sodium 146 mmol/L (135-145); Total Bilirubin 0.8 mg/dL (0.3-1.2); Total Protein 5.9 g/dL (6.2-8.2); Uric Acid 4.9 mg/dL (3.7-8.7)
[2020-11-28 16:03] LABS: Urine Creatinine 88.4 mg/dL
== END | disposition home or self-care (01) ==
LOC: LABWHC1 12:50
PROVIDERS: ATTEND Internal Medicine
DX: J44.9 Chronic obstructive pulmonary disease, unspecified (principal); N40.0 Benign prostatic hyperplasia without lower urinary tract symptoms; I50.9 Heart failure, unspecified; M10.9 Gout, unspecified; N18.30 Chronic kidney disease, stage 3 unspecified; E78.5 Hyperlipidemia, unspecified; E03.9 Hypothyroidism, unspecified; M19.90 Unspecified osteoarthritis, unspecified site; J90 Pleural effusion, not elsewhere classified; E55.9 Vitamin D deficiency, unspecified; R80.9 Proteinuria, unspecified; R91.8 Other nonspecific abnormal finding of lung field
CPT/HCPCS: 36415; 71046; 80053; 80061; 81003; 82043; 82306; 82550; 82570; 83735; 83880; 83970; 84100; 84153; 84439; 84443; 84484; 84550; 85025; 85610; 85652; 86140; 87086

== ENCOUNTER 2020-11-30 14:53 | Inpatient (IN) | payer MEDICARE, OTHER ==
[2020-11-30 16:15] LABS: Basophils % (A) 1 %; Eosinophils # (A) 0.1 k/uL (0-0.7); Eosinophils % (A) 2 %; HCT 41.5 % (39.0-53.0); HGB 14.1 gm/dL (13.0-17.5); Lymphocytes # (A) 1.1 k/uL (1.0-4.8); Lymphocytes % (A) 20 %; MCH 32.1 pg (25.0-35.0); MCHC 34.1 g/dL (31.0-37.0); MCV 94.3 fL (80.0-100.0); Mean Platelet Volume 7.4; Monocytes # (A) 0.3 k/uL (0-1.0); Monocytes % (A) 6 %; Neutrophils # (A) 4.1 k/uL (1.3-7.7); Neutrophils % (A) 71 %; Platelet Count 198 k/uL (150-450); RDW 13.4 % (11.5-15.5); WBC 5.8 k/uL (3.8-10.6)
[2020-11-30 16:23] LABS: Partial Thromboplastin Time 23.6 sec (22.0-30.0); Prothrombin Time 10.8 sec (9.0-12.0)
[2020-11-30 16:25] LABS: Albumin 3.8 g/dL (3.5-5.0); Calcium 8.9 mg/dL (8.4-10.2); Magnesium 2.2 mg/dL (1.6-2.3); Potassium 3.5 mmol/L (3.5-5.1); Total Bilirubin 0.7 mg/dL (0.2-1.3); Total Protein 6.5 g/dL (6.3-8.2)
--- NOTE | 2020-11-30 16:44 | XR ---
EXAMINATION TYPE: XR chest 2V DATE OF EXAM: 11/30/2020 COMPARISON: 11/27/2020 HISTORY: 85-year-old male dysrhythmia TECHNIQUE: AP and lateral views FINDINGS: Reverse right shoulder plasty. Heart mildly enlarged. Dilatation/ectasia of the thoracic aorta. Diffu se interstitial changes persist. There. Trace effusions on lateral view. Old healed fracture deformity distal left clavicle. Old left-sided rib fracture deformities. IMPRESSION: Mild cardiomegaly. Interstitial changes and trace effusions on lateral view. Correlate for possible m ild CHF.
--- NOTE | 2020-11-30 18:28 | ED ---
General Adult HPI - General Chief complaint: Arrhythmia/Palpitations Stated complaint: New Afib Time Seen by Provider: 11/30/20 15:46 Source: patient, family Mode of arrival: wheelchair Limitations: no limitations - History of Present Illness Initial comments: Patient is an 85-year-old male who presents emergency Department with reported new onset A. fib. Patient was seen in his primary care office for some generalized weakness and lower trauma swelling. Dr. Jones did place the patient on Lasix. He sent him for an echo and EKG this morning. During the echo the patient had demonstrated A. fib and therefore he was sent to the emergency room and for further evaluation. Denies history of. He is not on any anticoagulation. He denies any chest pain or shortness of breath. No previous history of cardiac disease. Admits to bilateral lower externally swelling. No history of congestive heart failure. No other alleviating, precipitating or modifying factors - Related Data Home Medications Medication Instructions Recorded Confirmed Levothyroxine Sodium [Synthroid] 50 mcg PO DAILY 06/05/16 11/30/20 Dextroamphetamine/Amphetamine 10 mg PO DAILY 06/13/20 11/30/20 [Adderall] Escitalopram [Lexapro] 10 mg PO DAILY 06/13/20 11/30/20 buPROPion [Wellbutrin] 75 mg PO DAILY 06/13/20 11/30/20 Cyanocobalamin (Vitamin B-12) 1,000 mcg PO DAILY 06/20/20 11/30/20 [Vitamin B-12] Joint Support 2 tab PO DAILY 06/20/20 11/30/20 Liver Support 4 tab PO DAILY 06/20/20 11/30/20 Memory Support 1 tab PO DAILY 06/20/20 11/30/20 Perfect Amino 5 tab PO DAILY 06/20/20 11/30/20 Furosemide [Lasix] 20 mg PO DAILY 11/30/20 11/30/20 Levofloxacin [Levaquin] 500 mg PO DAILY 11/30/20 11/30/20 Potassium Chloride [Potassium 10 meq PO DAILY 11/30/20 11/30/20 Chloride ER] Ubidecarenone [Co Q-10] 100 mg PO DAILY 11/30/20 11/30/20 Zinc 50 mg PO DAILY 11/30/20 11/30/20 Allergies Allergy/AdvReac Type Severity Reaction Status Date / Time Penicillins Allergy Unknown Verified 11/30/20 16:48 Review of Systems ROS Statement: Those systems with pertinent positive or pertinent negative responses have been documented in the HPI. ROS Other: All systems not noted in ROS Statement are negative. Past Medical History Past Medical History: Deep Vein Thrombosis (DVT), Memory Impairment, Sleep Apnea/CPAP/BIPAP, Thyroid Disorder Additional Past Medical History / Comment(s): hx. DVT right thigh, uses CPAP, fell & fx. 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 History of Any Multi-Drug Resistant Organisms: None Reported Past Surgical History: Appendectomy, Orthopedic Surgery Additional Past Surgical History / Comment(s): cervical laminectomy, vania cataract., repair left tibial and ankle fx after injury- 2011, rt shoulder reversal Past Anesthesia/Blood Transfusion Reactions: No Reported Reaction Past Psychological History: Depression Smoking Status: Never smoker Past Alcohol Use History: None Reported Past Drug Use History: None Reported - Past Family History Mother Family Medical History: No Reported History Additional Family Medical History / Comment(s): . General Exam Limitations: no limitations Course Vital Signs 11/30/20 11/30/20 11/30/20 15:34 16:14 17:19 Temperature 98.2 F Pulse Rate 116 H 95 Pulse Rate [ 105 H Halal Butcher ] Respiratory 20 20 Rate Blood Pressure 140/107 150/115 O2 Sat by Pulse 97 95 Oximetry 11/30/20 19:25 Temperature Pulse Rate 93 Pulse Rate [ Halal Butcher ] Respiratory 18 Rate Blood Pressure 171/117 O2 Sat by Pulse 96 Oximetry EKG Findings - EKG Comments: EKG Findings:: EKG demonstrates afib with rate of 105. QRS 142. Qtc 539. No acut e st segment elevation or depressions. Medical Decision Making - Medical Decision Making Upon arrival the patient was placed into room 16. A thorough history and physical exam was performed. A lead EKG is obtained which demonstrates A. fib with a controlled ventricular rate. IV is established. Laboratory studies were conducted and the patient went for chest x-ray. Laboratory studies review and demonstrate a BNP of 3610. Chest x-ray demonstrates mild cardiomegaly with interstitial changes and trace effusions. I reviewed the patient's echo which demonstrates an ejection fraction of 45-50%. Patient is given 40 mg of Lasix IV. states the patient has multiple falls and therefore she is concerned about anticoagulation. I did discuss this with Dr. Jones who recommended that he have subcu heparin and cardiology evaluation. Patient agreed to the plan of overnight admission. He was taken before in stable condition - Lab Data Result diagrams: 11/30/20 16:04 11/30/20 16:04 Lab Results 11/30/20 11/30/20 11/30/20 Range/Units 16:04 16:04 16:04 WBC 5.8 (3.8-10.6) k/uL RBC 4.40 (4.30-5.90) m/uL Hgb 14.1 (13.0-17.5) gm/dL Hct 41.5 (39.0-53.0) % MCV 94.3 (80.0-100.0) fL MCH 32.1 (25.0-35.0) pg MCHC 34.1 (31.0-37.0) g/dL RDW 13.4 (11.5-15.5) % Plt Count 198 (150-450) k/uL MPV 7.4 Neutrophils % 71 % Lymphocytes % 20 % Monocytes % 6 % Eosinophils % 2 % Basophils % 1 % Neutrophils # 4.1 (1.3-7.7) k/uL Lymphocytes # 1.1 (1.0-4.8) k/uL Monocytes # 0.3 (0-1.0) k/uL Eosinophils # 0.1 (0-0.7) k/uL Basophils # 0.0 (0-0.2) k/uL PT 10.8 (9.0-12.0) sec INR 1.0 (<1.2) APTT 23.6 (22.0-30.0) sec Sodium 141 (137-145) mmol/L Potassium 3.5 (3.5-5.1) mmol/L Chloride 102 (98-107) mmol/L Carbon Dioxide 31 H (22-30) mmol/L Anion Gap 8 mmol/L BUN 21 H (9-20) mg/dL Creatinine 0.88 (0.66-1.25) mg/dL Est GFR (CKD-EPI)AfAm 90 (>60 ml/min/1.73 sqM) Est GFR (CKD-EPI)NonAf 77 (>60 ml/min/1.73 sqM) Glucose 93 (74-99) mg/dL Calcium 8.9 (8.4-10.2) mg/dL Magnesium 2.2 (1.6-2.3) mg/dL Total Bilirubin 0.7 (0.2-1.3) mg/dL AST 88 H (17-59) U/L ALT 73 H (4-49) U/L Alkaline Phosphatase 82 (38-126) U/L Troponin I (0.000-0.034) ng/mL NT-Pro-B Natriuret Pep pg/mL Total Protein 6.5 (6.3-8.2) g/dL Albumin 3.8 (3.5-5.0) g/dL TSH 2.270 (0.465-4.680) mIU/L 11/30/20 11/30/20 Range/Units 16:04 16:04 WBC (3.8-10.6) k/uL RBC (4.30-5.90) m/uL Hgb (13.0-17.5) gm/dL Hct (39.0-53.0) % MCV (80.0-100.0) fL MCH (25.0-35.0) pg MCHC (31.0-37.0) g/dL RDW (11.5-15.5) % Plt Count (150-450) k/uL MPV Neutrophils % % Lymphocytes % % Monocytes % % Eosinophils % % Basophils % % Neutrophils # (1.3-7.7) k/uL Lymphocytes # (1.0-4.8) k/uL Monocytes # (0-1.0) k/uL Eosinophils # (0-0.7) k/uL Basophils # (0-0.2) k/uL PT (9.0-12.0) sec INR (<1.2) APTT (22.0-30.0) sec Sodium (137-145) mmol/L Potassium (3.5-5.1) mmol/L Chloride (98-107) mmol/L Carbon Dioxide (22-30) mmol/L Anion Gap mmol/L BUN (9-20) mg/dL Creatinine (0.66-1.25) mg/dL Est GFR (CKD-EPI)AfAm (>60 ml/min/1.73 sqM) Est GFR (CKD-EPI)NonAf (>60 ml/min/1.73 sqM) Glucose (74-99) mg/dL Calcium (8.4-10.2) mg/dL Magnesium (1.6-2.3) mg/dL Total Bilirubin (0.2-1.3) mg/dL AST (17-59) U/L ALT (4-49) U/L Alkaline Phosphatase (38-126) U/L Troponin I <0.012 (0.000-0.034) ng/mL NT-Pro-B Natriuret Pep 3610 pg/mL Total Protein (6.3-8.2) g/dL Albumin (3.5-5.0) g/dL TSH (0.465-4.680) mIU/L Disposition Clinical Impression: New onset a-fib, CHF (congestive heart failure) Disposition: [facility] Condition: Stable Is patient prescribed a controlled substance at d/c from ED?: No Decision to Admit Reason: Admit from [facility] Decision Date: 11/30/20 Decision Time: 18:35
[2020-11-30] MEDS ORDERED: FUROSEMIDE 10 MG/ML 4 ML VIAL IV STA (18:34)
[2020-11-30] MEDS ORDERED: NALOXONE 0.4 MG/ML 1 ML VIAL IV PRN (18:50)
--- NOTE | 2020-11-30 20:04 | CT ---
EXAMINATION TYPE: CT brain wo con DATE OF EXAM: 11/30/2020 HISTORY: Anticoagulation, recent head injury. CT DLP: 1247.4 mGycm. Automated Exposure Control for Dose Reduction was Utilized. TECHNIQUE: CT scan of the head is performed without contrast. COMPARISON: 06/13/2020 FINDINGS: There is no acute intracranial hemorrhage, midline shift, or mass effect identified. Brain parenchyma appears normal. Ex vacuo dilatation of the ventricles concordant with generalized volume loss. Patch y white matter hypodensities likely sequela of chronic microvascular ischemic change. The ventricles, sulci, and cisterns are normal in size and configuration. No extra-axial fluid collection. No depressed calvarial fracture. Visualized sinuses and mastoid air cells are clear. IMPRESSION: No acute intracranial hemorrhage, midline shift, or mass effect.
[2020-11-30] MEDS: ATORVASTATIN 80 MG TAB PO SCH (21:08)
[2020-11-30] MEDS: METOPROLOL TARTRATE 25 MG TAB PO SCH (21:08)
[2020-11-30] MEDS: lisinopriL 5 MG TAB PO SCH (21:09)
[2020-11-30] MEDS: POTASSIUM CHLORIDE ER 20 MEQ TAB.ER PO SCH (21:09)
--- NOTE | 2020-11-30 21:45 | P.HPIM ---
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 Patient is a new patient to me he seen the first visit on 11/27/2020 in the office. He used to be under care of Dr. Garcia who was retired. Chief complaint swelling of the lower extremities with 4+ pitting edema associated with inability to walk and frequent fall with a history of questionable stroke in the past with the speech problem from his . History of present illness Mr. 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 He recently requested to be seen in my office on 11/27/2020 and at that time was initial introduction for the first visit with his presence and complain we had suspicious of atrial fib and he was planned to have full physical with the EKG, however we send him to have echocardiogram and was a first available appointment today on Thursday and patient had the echocardiogram as outpatient and we also was requesting that he need to have as well EKG because the suspicious of the atrial fib with the highly possible congestive heart failure biventricular. Patient presented today to the emergency room because of progression of the shortness of breath and and he was treated with Lasix 20 mg by mouth until seen in the full physical and having the data for the laboratory and the chest x-ray. The chest x-ray initially done on 11/27/2020 was indicating that chronic rib deformity as well as the clavicular deformity and patchy segmental area of infiltrate and COPD and bilateral effusion he was having also mild superior endplate compression fracture of the thoracic spine and indicating that he has COPD with basilar infiltrate and effusion. At that time patient was called from the office and started on Levaquin 500 mg once a day until we have for further investigation and the echo result. Also he had initial lab in 11/27/2020 fourth indicating that he has normal or grade 2 GFR and he had been with a history of hypothyroidism in the past the white count was normal but his hemoglobin was 12.7 and the his also his parath yroid hormone was 60.5 and the he had these as well micro-microalbumin creatinine ratio was elevated to 46 and the urine microalbumin was 4.1 with the normal 1.9. With the underlying proteinuria patient also normal uric acid and 4.6 is his NT proBNP was 4480 with normal troponin at this time we don't have the echo results. Patient today had the echocardiogram in the morning, however he got progressed and short of breath and unable to walk and he came to the emergency room and they are and because of his frequent fall and history of improvement of his speech the underlying possibility of small strokes could be present in the internal capsule , with the presence of atrial fibrillation which is new onset and he denied any previous history of atrial fibrillation. His was concerned about anticoagulation and is following repeatedly with the unknown etiology or clear etiology we order a computed tomography scan of the brain as a preliminary and consultation with the neurology hospitalist Dr. Hunter or Dr. Claros neurologist on-call for for further evaluation of nuclear stroke. We don't have yet the report of the computed tomography scan as well but with the atrial fibrillation and the high risk highly possible. We don't have any records from his previous caregivers. Past medical history: He has been seen by Dr. Aj and he had peak of fracture of the left forearm and he had a cast on. He had fatigue for the last 3 months. Underlying issue of psychiatry and he has been treated by Adderall by Dr. Kathy Ruth the psychiatrist with Wellbutrin and Lexapro as this currently his medication which we'll continue. Patient has history of hypothyroidism and he has been under treatment and we will be rechecking his thyroid as well. Appendectomy in 1983. And he had cervical spine surgery in 1985. He has a bone repair the tibia in the neck in 2016 in [place] he usually goes there for scale. Habits he is former smoker and quit in 1982 cigarettes. Alcohol he drinks wine one glass per day. And caffeine 1 cup per day He is and he has 3 sons and one dog. 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 History of hypertension and acne cardia and his BMI in the office was 33.7 and the blood pressure was 162/116 in the office however the still elevated in the ER as well as heart rate was on admission rate of 114 ventricular response with the atrial fibrillation. ALLERGY penicillin. Review of system: Patient is conscious alert oriented and he had history of frequent falls and he has underlying ADHD by the treatment of the psychiatry as well as depression and anxiety unclear if he had frequent fall secondary to previous stroke or not or any nuclear involvement and resulted and frequent fall as well and this question is not answered by the patient or his even in the office with deficiency of the knowledge. Cardiovascular: No patient not aware of he has previously atrial fibrillation or Ewing Carta disease or pulmonary hypertension but his heart was tachycardic and irregular which he did not know until I did see him in the office. First visit introduction. GI no complain no nausea vomiting or diarrhea Musculoskeletal: He had history of previous fracture and surgery on the neck with osteoarthritis. Respiratory he was denied any shortness of breath in the office however in the hospital here he was indicating the area shortness of breath with minimal exertion. Extremities edema 4+. Endocrine thyroid disease he taken medication in details no history of diabetes mellitus Rest of review of system was noncontributory Physical examination: Patient is conscious alert and he wearing diapers with a history of enlarged prostate he had no history of prostatic cancer His vital sign on admission: Heart rate 1 16/m temperature was 90 8.2F oral and respiratory rate was 20 his blood pressure in the ER was 140/107 with the mean pressure 118 and the oxygen saturation was on room air 97% subsequently on the floor his blood pressure went up to 171/117 with uncontrolled hypertension and the mean pressure 135 which is elevated pulse ox still 96% and the heart rate started to improve minimally. Patient received Lasix in the ER 40 mg IV every 12 hours which we will be continued at this point and check the lab in a.m. with the magnesium. The head was normocephalic and atraumatic and pupil is equal reactive he always closing his right eye for no reason that he has mild upper and lower eyelid swelling. Oropharynx is negative with natural teeth and Caps. The report of the computed tomography scan came later which without contrast indicating no acu te intracranial hemorrhage or midline shift or mass effect identified and patchy white matter hypodensities likely to chronic microvascular ischemic changes and the ventricle and sulci and cisterns are normal size and configuration, no extra AGL fluid collection, no depressed calvaria are fracture, visualized sinus and mastoid cells are clear with no acute intracranial hemorrhage or midline shift. He is negative with underlying minimal hearing impairment, nose was negative normal smile and no evidence of impairment of his taste. Neck: Supple with the previous history of cervical fusion and degenerative disc disease of the cervical spine he had positive JVD and no thyroid enlargement no bruits detected Chest: He had basilar rales bilaterally and chest x-ray indicating mild cardiomegaly interstitial changes trace effusion on the lateral view and correlate with mild congestive heart failure. And this was done today on 11/30/2020. Heart irregular irregularities with atrial fibrillation EKG in the ER indicating heart rate of 10 5 bpm with atrial fibrillation and rapid ventricular response, right bundle branch block, T-wave abnormalities with the consideration of inferior ischemia, however his troponin was normal. Still have serial of the troponin order in the ER No appreciated gallop. His echocardiogram done this morning as outpatient: There is some left atrial severely dilated more than 40 mL/meter square right atrium mildly enlarged mild to moderate aortic valve sclerosis, moderate aortic regurgitation, mild mitral annular calcification, moderate mitral regurgitation, mild mitral valve prolapse , mild to moderate tricuspid regurgitation, mild pulmonary hypertension and small generalized pericardial effusion was present. Cardiology consult was requested for evaluation and treatment and follow-up. Abdomen: Soft positive bowel sounds and no tenderness in the four-quadrant. Wearing diaper, able to urinate normally with the urine. Extremities: 4+ pitting edema, positive pulses. Neuro history of frequent fall the initial computed tomography scan in the ER was negative and we consulted the neurology for for further evaluation with the possibility of nuclear stroke in the past in the presence of atrial fibrillation. Assessment: New onset of atrial fibrillation with rapid ventricular response #2 impaired ejection fraction with the 45-50% with the possibility of underlying ischemic heart disease with reduced ejection fraction. #3 pulmonary hypertension #4 biventricular congestive heart failure as a new patient without history of previous event considered as acute congestive heart failure biventricular with the RVR uncontrolled #5 peripheral edema of the lower extremities 4+. #6 history of fracture of the left forearm on cast by Dr. Aj orthopedic surgeon. #7 history of benign prostatic hypertrophy but no cancer. #8 history of smoking and and COPD however patient on symptomatic with normal oxygen saturation #9 hypertension with hypertensive heart disease #10 minimal pericardial effusion. #11 hypothyroidism stable treated with the levothyroxin. #12 questionable history of TIA and speech impairment and we consulted the neurology for for further clarification and this admission computed tomography scan was negative. Plan: #1 Lasix IV every 12 hour continued from the ER #2 starting beta nicole metoprolol tartrate 25 mg twice a day for control the rate #3 continue the thyroid medication and checking the lab for it for adjustment. #4 as mentioned above consultation with neurology #5 consultation with cardiology with the underlying ischemic heart disease and reduced ejection fraction and mitral valve prolapse and pulmonary hypertension. I did check with the inpatient pharmacy in regard of the use of of Farxiga oral medication however they don't carry these medication in the pharmacy. And we'll see what the cardiology wants to do other than what the treatment started. Started the Lipitor 80 mg by mouth daily at bedtime and to be adjusted by cardiology if needed. And obtain the laboratory including magnesium and. Past Medical History Past Medical History: Deep Vein Thrombosis (DVT), Memory Impairment, Sleep Apnea/CPAP/BIPAP, Thyroid Disorder Additional Past Medical History / Comment(s): hx. DVT right thigh, uses CPAP, fell & fx. 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 History of Any Multi-Drug Resistant Organisms: None Reported Past Surgical History: Appendectomy, Orthopedic Surgery Additional Past Surgical History / Comment(s): cervical laminectomy, vania cataract., repair left tibial and ankle fx after injury- 2011, rt shoulder reversal Past Anesthesia/Blood Transfusion Reactions: No Reported Reaction Past Psychological History: Depression Smoking Status: Never smoker Past Alcohol Use History: None Reported Past Drug Use History: None Reported - Past Family History Mother Family Medical History: No Reported History Additional Family Medical History / Comment(s): . Medications and Allergies Home Medications Medication Instructions Recorded Confirmed Type Levothyroxine Sodium [Synthroid] 50 mcg PO DAILY 06/05/16 11/30/20 History Dextroamphetamine/Amphetamine 10 mg PO DAILY 06/13/20 11/30/20 History [Adderall] Escitalopram [Lexapro] 10 mg PO DAILY 06/13/20 11/30/20 History buPROPion [Wellbutrin] 75 mg PO DAILY 06/13/20 11/30/20 History Cyanocobalamin (Vitamin B-12) 1,000 mcg PO DAILY 06/20/20 11/30/20 History [Vitamin B-12] Joint Support 2 tab PO DAILY 06/20/20 11/30/20 History Liver Support 4 tab PO DAILY 06/20/20 11/30/20 History Memory Support 1 tab PO DAILY 06/20/20 11/30/20 History Perfect Amino 5 tab PO DAILY 06/20/20 11/30/20 History Furosemide [Lasix] 20 mg PO DAILY 11/30/20 11/30/20 History Levofloxacin [Levaquin] 500 mg PO DAILY 11/30/20 11/30/20 History Potassium Chloride [Potassium 10 meq PO DAILY 11/30/20 11/30/20 History Chloride ER] Ubidecarenone [Co Q-10] 100 mg PO DAILY 11/30/20 11/30/20 History Zinc 50 mg PO DAILY 11/30/20 11/30/20 History Allergies Allergy/AdvReac Type Severity Reaction Status Date / Time Penicillins Allergy Unknown Verified 11/30/20 16:48 Physical Exam Vitals: Vital Signs Temp Pulse Pulse Resp BP Pulse Ox 11/30/20 19:25 93 18 171/117 96 11/30/20 17:19 95 20 150/115 95 11/30/20 16:14 105 H 11/30/20 15:34 98.2 F 116 H 20 140/107 97 Intake and Output 11/30/20 11/30/20 11/30/20 06:59 14:59 22:59 Other: Weight 86.183 kg Results CBC & Chem 7: 11/30/20 16:04 11/30/20 16:04 Labs: Abnormal Lab Results - Last 24 Hours (Table) 11/30/20 Range/Units 16:04 Carbon Dioxide 31 H (22-30) mmol/L BUN 21 H (9-20) mg/dL AST 88 H (17-59) U/L ALT 73 H (4-49) U/L
[2020-11-30] MEDS: HEPARIN SODIUM,PORCINE/PF 5,000 UNIT/0.5 ML SYRINGE SQ SCH (23:10)
[2020-12-01 06:00] LABS: Appearance,Urine Clear (Clear); Bilirubin,Urine Negative (Negative); Blood,Urine Trace (Negative); Color,Urine Light Yellow; Glucose,Urine (UA) Negative (Negative); Hyaline Casts,Urine 5 /lpf (0-2); Ketones,Urine Negative (Negative); Leukocyte Esterase,Urine Negative (Negative); Mucus,Urine Rare /hpf; Nitrite,Urine Negative (Negative); Protein,Urine Negative (Negative); RBC,Urine 10 /hpf (0-5); Specific Gravity,Urine 1.008 (1.001-1.035); Urobilinogen,Urine <2.0 mg/dL (<2.0); WBC,Urine <1 /hpf (0-5)
[2020-12-01] MEDS: FUROSEMIDE 10 MG/ML 4 ML VIAL IV SCH ×2 (06:39→17:06)
[2020-12-01] MEDS: LEVOTHYROXINE 50 MCG TAB PO SCH (06:39)
[2020-12-01 07:24] LABS: Basophils % (A) 1 %; Eosinophils # (A) 0.1 k/uL (0-0.7); Eosinophils % (A) 3 %; HCT 40.1 % (39.0-53.0); HGB 13.7 gm/dL (13.0-17.5); Lymphocytes # (A) 1.3 k/uL (1.0-4.8); Lymphocytes % (A) 27 %; MCH 31.8 pg (25.0-35.0); MCV 93.6 fL (80.0-100.0); Mean Platelet Volume 6.9; Monocytes # (A) 0.3 k/uL (0-1.0); Monocytes % (A) 7 %; Neutrophils # (A) 2.9 k/uL (1.3-7.7); Neutrophils % (A) 61 %; Platelet Count 206 k/uL (150-450); RBC 4.29 m/uL (4.30-5.90); RDW 13.5 % (11.5-15.5); WBC 4.9 k/uL (3.8-10.6)
[2020-12-01 07:45] LABS: Albumin 3.6 g/dL (3.5-5.0); Bilirubin, Delta 0.1 mg/dL (0.0-0.2); Bilirubin,Unconjugated 0.7 mg/dL (0.0-1.1); Total Bilirubin 0.8 mg/dL (0.2-1.3)
[2020-12-01 07:48] LABS: African American GFR (CKD) >90 (>60 ml/min/1.73 sqM); Anion Gap 6 mmol/L; Blood Urea Nitrogen 16 mg/dL (9-20); Carbon Dioxide 31 mmol/L (22-30); Chloride 104 mmol/L (98-107); Glucose 98 mg/dL (74-99); Non-African American GFR(CKD) 79 (>60 ml/min/1.73 sqM); Potassium 2.8 mmol/L (3.5-5.1); Sodium 141 mmol/L (137-145)
[2020-12-01] MEDS ORDERED: Potassium Replacement Protocol 1 EACH MISC MISCELLANE PRN (08:31)
[2020-12-01] MEDS: HEPARIN SODIUM,PORCINE/PF 5,000 UNIT/0.5 ML SYRINGE SQ SCH (08:40)
[2020-12-01] MEDS: ESCITALOPRAM 10 MG TAB PO SCH (08:40)
[2020-12-01] MEDS: buPROPion 75 MG TAB PO SCH (08:40)
[2020-12-01] MEDS: CYANOCOBALAMIN 500 MCG TAB PO SCH (08:40)
[2020-12-01] MEDS: METOPROLOL TARTRATE 25 MG TAB PO SCH ×2 (08:41→20:02)
[2020-12-01] MEDS: POTASSIUM CHLORIDE ER 20 MEQ TAB.ER PO SCH ×5 (08:41→20:03)
[2020-12-01] MEDS: lisinopriL 5 MG TAB PO SCH ×2 (08:41→20:03)
[2020-12-01] MEDS: ZINC SULFATE 220 MG CAP PO SCH (08:41)
[2020-12-01] MEDS ORDERED: POTASSIUM CHLORIDE ER 10 MEQ TAB.ER.PRT PO SCH (09:00)
[2020-12-01] MEDS ORDERED: NON FORMULARY DRUG (Ubidecarenone [Co Q-10] 100 MG Capsule) PO SCH (09:00)
[2020-12-01] MEDS ORDERED: LEVOFLOXACIN 500 MG TAB PO SCH (09:00)
[2020-12-01] MEDS: NON FORMULARY DRUG (Dextroamphetamine/Amphetamine [Adderall] 10 MG Tablet) PO SCH (10:11)
[2020-12-01] MEDS: APIXABAN 5 MG TAB PO SCH ×2 (11:10→20:03)
[2020-12-01 11:45] LABS: Glucose,Whole Blood 134 mg/dL (75-99)
--- NOTE | 2020-12-01 13:49 | P.PN ---
Subjective Progress Note Date: 12/01/20 (4+ pitting edema) Principal diagnosis: Congestive heart failure acute with reduced ejection fraction 45%, mitral valve prolapse, valvular heart disease, ischemic heart disease. Hypertension with hypertensive heart disease. Coated 19 negative test no symptoms. Hypothyroidism 4+ pitting edema of the lower extremities. Underlying speech impediment new to him Midline dysfunction with the incontinent of the urine. Consultation with neurology was requested because of computed tomography scan initial in the ER was negative with the walking abnormalities as well as incontinent of urine with midline dysfunction to rule out underlying nuclear abnormalities or internal capsule stroke consultation with Dr. Hyacinth Banks neurologist for evaluation and treatment. Physical therapy consulted. Cardiology Dr. Izaguirre seed core operator did see the patient for further response not yet available. Atrial fibrillation with RVR on admission Valvular heart disease with mitral valve prolapse as well as pulmonary hypertension. Progress note date of service 12/01/[address] Karen Lazcano [facility]. Patient seen and evaluated today. Cardiology did see him and evaluated him and added and requests 5 mg twice a day for the atrial fibrillation. He pulled out his condom catheter "[place] catheter "and he is incontinent of urine and wearing diapers. He was able to answer some questions with difficulty of speech am not sure that the patient has dementia and we consulted the neurologist. His vital sign today: Temperature 97.6 F oral. Heart rate is 88 with the irregular irregularities with atrial fibrillation currently controlled ventricular response with the beta nicole that I did added on admission. Respiratory rate 18/m nonlabored and blood pressure currently controlled 125/87 with a mean 99 and oxygen saturation 96% on room air. Laboratory: His potassium 2.8 and the added potassium supplementation was protocol to the current medication of potassium supplementation 20 mEq twice a day his GFR for non- 79% and blood sugar 98 with no evidence of diabetes. White count 4.9 with the hemoglobin 13.7 and hematocrit 40.1. Urine analysis was only RBCs was present with the underlying incontinent and difficulties, will check PSA as he has enlarged prostate but he never had cancer of the prostate per the patient history as he is a new patient to me Negative covert 19 testing. His output 22 00 mL and intake 360 mL with the diuresis., His weight still the same 83.7 kg and BMI 31.7 kg/m. On exam: Patient's conscious alert able to answer a few questions and he always closing his right eye the etiology is unclear. Head was normocephalic and atraumatic pupil is equal reactive oropharynx was natural teeth and uvula midline, Neck was supple and he had previous surgery with the arthritis. Chest: Good air entry bilaterally minimal rales on the back with the underlying edema 4+ may mildly improved, his left ankle history of fracture in the past 4 years ago. Continued the leg elevation and the diuresis. The heart irregular irregularities and atrial fibrillation currently controlled ventricular response. With reduced ejection fraction. The abdomen soft positive bowel sounds no tenderness in the four-quadrant Extremities: Still have pitting edema up to the shaft of the tibia below the knee and currently is 3+ with minimal improvement. Neurologically as mentioned above and waiting for neurological evaluation by the neurologist. Assessment: #1 biventricular congestive heart failure acute with reduced ejection fraction to 45% and pleural effusion 4+ edema on admission of the lower extremities. #2 valvular heart disease, pulmonary hypertension, mitral valve prolapse. With mitral regurg tricuspid regurg aortic regurg. #3 hypo-thyroidism and currently controlled. #4 walking disability and midline abnormalities with his urinary incontinent. Waiting diapers #5 questionable dementia will confirm by neurology evaluation and treatment. Plan: #1 patient was started on novel anticoagulant Eliquis 5 mg twice a day by Dr. pulido and saw him this morning. #2 hypertension with hypertensive heart disease currently blood pressure is controlled. #3 continue with the request of neurology evaluation. #4 no IV and Hep-Lock. #5 will continue diuresis and monitoring the electrolytes #6 monitoring his BMP and magnesium with the Lasix diuresis. Objective - Vital Signs Vital signs: Vital Signs Temp 97.6 F 12/01/20 11:12 Pulse 88 12/01/20 11:12 Resp 18 12/01/20 11:12 BP 125/87 12/01/20 11:12 Pulse Ox 96 12/01/20 11:12 Intake & Output 11/30/20 12/01/20 12/01/20 18:59 06:59 18:59 Intake Total 360 Output Total 2200 Balance -2200 360 Weight 86.183 kg 83.7 kg Intake: Oral 360 Output: Urine 2200 Other: Voiding Method External Catheter External Catheter # Voids 1 - Labs CBC & Chem 7: 12/01/20 06:52 12/01/20 06:52 Labs: Abnormal Lab Results - Last 24 Hours (Table) 11/30/20 12/01/20 12/01/20 Range/Units 16:04 05:20 06:52 RBC (4.30-5.90) m/uL Potassium (3.5-5.1) mmol/L Carbon Dioxide 31 H (22-30) mmol/L BUN 21 H (9-20) mg/dL POC Glucose (mg/dL) (75-99) mg/dL AST 88 H (17-59) U/L ALT 73 H 67 H (4-49) U/L Total Protein 6.0 L (6.3-8.2) g/dL Urine Blood Trace H (Negative) Urine RBC 10 H (0-5) /hpf Hyaline Casts 5 H (0-2) /lpf Urine Mucus Rare H (None) /hpf 12/01/20 12/01/20 12/01/20 Range/Units 06:52 06:52 11:43 RBC 4.29 L (4.30-5.90) m/uL Potassium 2.8 L (3.5-5.1) mmol/L Carbon Dioxide 31 H (22-30) mmol/L BUN (9-20) mg/dL POC Glucose (mg/dL) 134 H (75-99) mg/dL AST (17-59) U/L ALT (4-49) U/L Total Protein (6.3-8.2) g/dL Urine Blood (Negative) Urine RBC (0-5) /hpf Hyaline Casts (0-2) /lpf Urine Mucus (None) /hpf
[2020-12-01 16:37] LABS: Glucose,Whole Blood 106 mg/dL (75-99)
[2020-12-01 18:02] LABS: Chol/HDL Ratio 3.04; LDL Cholesterol,Calculated 93.6 mg/dL (0.0-131.0); VLDL Calculation 12.4 mg/dL (5.00-40.00)
[2020-12-01] MEDS: ATORVASTATIN 80 MG TAB PO SCH (20:03)
--- NOTE | 2020-12-01 20:34 | P.CNNES ---
History of Present Illness Consult date: 12/01/20 History of Present Illness: Attempted consult today. Pt too busy with dinner to cooperate and answer questions. Will attempt again tomorrow. Past Medical History Past Medical History: Deep Vein Thrombosis (DVT), Memory Impairment, Sleep Apnea/CPAP/BIPAP, Thyroid Disorder Additional Past Medical History / Comment(s): hx. DVT right thigh, uses CPAP, fell & fx. 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 History of Any Multi-Drug Resistant Organisms: None Reported Past Surgical History: Appendectomy, Orthopedic Surgery Additional Past Surgical History / Comment(s): cervical laminectomy, vania cataract., repair left tibial and ankle fx after injury- 2011, rt shoulder reversal Past Anesthesia/Blood Transfusion Reactions: No Reported Reaction Past Psychological History: Depression Smoking Status: Never smoker Past Alcohol Use History: None Reported Past Drug Use History: None Reported - Past Family History Mother Family Medical History: No Reported History Additional Family Medical History / Comment(s): . Medications and Allergies Home Medications Medication Instructions Recorded Confirmed Type Levothyroxine Sodium [Synthroid] 50 mcg PO DAILY 06/05/16 11/30/20 History Dextroamphetamine/Amphetamine 10 mg PO DAILY 06/13/20 11/30/20 History [Adderall] Escitalopram [Lexapro] 10 mg PO DAILY 06/13/20 11/30/20 History buPROPion [Wellbutrin] 75 mg PO DAILY 06/13/20 11/30/20 History Cyanocobalamin (Vitamin B-12) 1,000 mcg PO DAILY 06/20/20 11/30/20 History [Vitamin B-12] Joint Support 2 tab PO DAILY 06/20/20 11/30/20 History Liver Support 4 tab PO DAILY 06/20/20 11/30/20 History Memory Support 1 tab PO DAILY 06/20/20 11/30/20 History Perfect Amino 5 tab PO DAILY 06/20/20 11/30/20 History Furosemide [Lasix] 20 mg PO DAILY 11/30/20 11/30/20 History Levofloxacin [Levaquin] 500 mg PO DAILY 11/30/20 11/30/20 History Potassium Chloride [Potassium 10 meq PO DAILY 11/30/20 11/30/20 History Chloride ER] Ubidecarenone [Co Q-10] 100 mg PO DAILY 11/30/20 11/30/20 History Zinc 50 mg PO DAILY 11/30/20 11/30/20 History Allergies Allergy/AdvReac Type Severity Reaction Status Date / Time Penicillins Allergy Unknown Verified 11/30/20 16:48 Physical Examination - Vital Signs Vital Signs: Vital Signs Temp Pulse Pulse Pulse Resp BP BP 12/01/20 15:21 98.0 F 86 18 141/83 12/01/20 14:00 80 88 18 12/01/20 11:12 97.6 F 88 18 125/87 12/01/20 08:00 97.6 F 85 18 135/84 12/01/20 04:00 80 18 144/97 12/01/20 01:40 97 11/30/20 23:51 83 18 139/79 11/30/20 20:15 97 18 170/102 11/30/20 19:25 93 18 171/117 Pulse Ox 12/01/20 15:21 96 12/01/20 14:00 12/01/20 11:12 96 12/01/20 08:00 95 12/01/20 04:00 94 L 12/01/20 01:40 11/30/20 23:51 96 11/30/20 20:15 96 11/30/20 19:25 96 Intake and Output 12/01/20 12/01/20 12/01/20 06:59 14:59 22:59 Intake Total 600 Balance 600 Intake: Oral 600 Other: Voiding Method External Catheter # Voids 1 1 Weight 83.7 kg Results - Laboratory Findings CBC and BMP: 12/01/20 06:52 12/01/20 06:52 Abnormal Lab Findings: Abnormal Labs 11/30/20 12/01/20 12/01/20 16:04 05:20 06:52 RBC D-Dimer Potassium Carbon Dioxide 31 H BUN 21 H POC Glucose (mg/dL) AST 88 H ALT 73 H 67 H Total Protein 6.0 L Urine Blood Trace H Urine RBC 10 H Hyaline Casts 5 H Urine Mucus Rare H 12/01/20 12/01/20 12/01/20 06:52 06:52 11:43 RBC 4.29 L D-Dimer Potassium 2.8 L Carbon Dioxide 31 H BUN POC Glucose (mg/dL) 134 H AST ALT Total Protein Urine Blood Urine RBC Hyaline Casts Urine Mucus 12/01/20 12/01/20 14:30 16:35 RBC D-Dimer 1.03 H Potassium Carbon Dioxide BUN POC Glucose (mg/dL) 106 H AST ALT Total Protein Urine Blood Urine RBC Hyaline Casts Urine Mucus
[2020-12-01 20:37] LABS: Glucose,Whole Blood 102 mg/dL (75-99)
[2020-12-02] MEDS: LEVOTHYROXINE 50 MCG TAB PO SCH (06:31)
[2020-12-02] MEDS: FUROSEMIDE 10 MG/ML 4 ML VIAL IV SCH ×2 (06:31→17:51)
[2020-12-02] MEDS: NON FORMULARY DRUG (Dextroamphetamine/Amphetamine [Adderall] 10 MG Tablet) PO SCH (09:06)
[2020-12-02] MEDS: CYANOCOBALAMIN 500 MCG TAB PO SCH (09:11)
[2020-12-02] MEDS: APIXABAN 5 MG TAB PO SCH ×2 (09:11→19:47)
[2020-12-02] MEDS: buPROPion 75 MG TAB PO SCH (09:11)
[2020-12-02] MEDS: lisinopriL 5 MG TAB PO SCH ×2 (09:12→19:47)
[2020-12-02] MEDS: METOPROLOL TARTRATE 25 MG TAB PO SCH ×2 (09:12→19:48)
[2020-12-02] MEDS: POTASSIUM CHLORIDE ER 20 MEQ TAB.ER PO SCH ×5 (09:12→19:47)
[2020-12-02] MEDS: ESCITALOPRAM 10 MG TAB PO SCH (09:12)
[2020-12-02] MEDS: ZINC SULFATE 220 MG CAP PO SCH (09:12)
[2020-12-02 10:36] LABS: Calcium 9.1 mg/dL (8.4-10.2); Potassium 2.9 mmol/L (3.5-5.1)
[2020-12-02] MEDS: SPIRONOLACTONE 25 MG TAB PO SCH (11:08)
--- NOTE | 2020-12-02 11:30 | PN ---
PROGRESS NOTE Mr. Ramsey is an 85-year-old male who presented to undergo an echocardiogram and was noted to be in atrial fibrillation. Subsequently he was admitted. He is doing better today. He continues to have some episodes of confusion, but his breathing is better. He is denying any chest pain. He denies any dizziness or palpitations. He continues to be in atrial fibrillation with slightly rapid ventricular response. He continues to be on IV diuretics. He lost weight since admission with good urine output. There is no evidence of malignant arrhythmia. He continues to be on Eliquis 5 mg twice a day, Lipitor 80 mg daily, furosemide 40 mg IV q.12 hours, Zestril 5 mg twice a day, metoprolol tartrate 25 mg twice a day, and potassium supplement. PHYSICAL EXAMINATION: Blood pressure running in the 130s to 140s with a heart rate in the 80s to 100, irregular. LUNGS: A few crackles at the bases. HEART: Irregularly irregular. S1, S2. No S3. No rub. With a systolic murmur. ABDOMEN: Soft, nontender. EXTREMITIES: Plus one edema, more on the left side. LAB DATA: Lab data revealed BUN and creatinine of 23 and 1.04, potassium of 2.9. His LDL is 93. He had an echocardiogram done on the day of admission that revealed a mildly impaired left ventricular systolic function. IMPRESSION: 1. Atrial fibrillation of unknown duration with initial rapid ventricular response. 2. Peripheral edema with fluid overload and evidence of congestive heart failure with mildly impaired left ventricular systolic function. 3. Hypokalemia. 4. Change in mental status. RECOMMENDATIONS: From the cardiac standpoint, I will continue the IV diuretic for another 24 hours. I will increase the dose of his beta nicole to improve the control of his ventricular response. I will add spironolactone to his regimen to help with his potassium replacement. Will continue to monitor his renal function and potassium, and depending on his progress, further recommendations will be made. MMODL / IJN: [id number] /
--- NOTE | 2020-12-02 13:28 | P.PN ---
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 Karen M.D. [facility]. Patient seen and evaluated today and [id number] examination with the patient. In the room he was able to eat and swallow normally, He is wobbly on his feet and he hit his knee and the edge of the bed, physical therapy is not available in the weekend. When I ask him what year today stated 2020 and he had no forgetting or hesitation with that to me is extensive including the dementia His stated that he had aphasia after he had surgical intervention was his shoulder which is still present until now, he also loss of his midline with the walking with diabetes wide legs and loss of control of bladder and he wearing diaper and with the underlying atrial fibrillation we don't know how long that w as present probability of stroke is high. For that purpose we will proceed with MRI of the brain. Patient did not seen actually by neurologist it was virtually consult which I don't believe the can evaluate the patient thoroughly clinically with these methods and I still requesting the neurology evaluation on Thursday when they are present. I found out that there is no neurologist available during the weekend. Laboratory was indicating that he still persistent hypokalemia and is quite of bit he is on K-Dur 20 milliequivalent twice a day plus added the protocol and the potassium this morning was 2.9, Dr. Izaguirre mica builder he did add Aldactone 25 mg once a day. His vital signs today indicating 8 AM indicating temperature 90.8 exemplary and the heart rate 105 regular was atrial fib and the respiratory rate 18 and the blood pressure 140/88 and mean blood pressure 105 with pulse ox 95% Subsequently at 11:00 blood pressure indicating 109/79 with a mean 89 and the heart rate was 80 could be due to medication was not given an 8 AM or could be erroneous result was still continue to monitor and will see how is the hemodynamics of the patient. Lipid profile indicating that cholesterol 158 LDL 93.6 and ratio 3.04 and his PSA was 3.4 Indicating that he had hyperlipidemia, and Dr. Hannon decreased his Lipitor from 80-20 mg. Blood sugar monitoring has been stable with no evidence of diabetes. His carbon dioxide was 35 and he had history of COPD but no symptoms and no wheezing and no complaint of shortness of breath at this time. On the physical exam: Patient was conscious alert oriented with able to eat intermittently confused, I found out that from his that he has seen in the past by Dr. Phill Smith neurologist, and he excluded him of being in dementia and he did not proceed to evaluate with MRI and patient lost follow-up with Dr. Smith. The head was normocephalic and atraumatic pupil was equal reactive. No dentures Neck was supple he had mild JVD with a history of congestive heart failure and history of pulmonary hypertension. Chest was normal breath sound bilaterally basilar crackles. Heart rhythm atrial fibrillation with the underlying controlled response, valv ular heart disease, mitral valve prolapse, pulmonary hypertension, mitral regurg tricuspid regurg and aortic regurg. Abdomen soft positive bowel sounds no nausea no vomiting no tenderness. Extremities: Still have edema of the lower extremities especially on the left lower leg worse than the right lower leg however improved. Also with the elevated d-dimer suspicious of DVT will be obtaining the ult rasound of the lower extremities bilateral. Neurologically patient will by my personal examination that he had some nuclear destruction of the brain could be with association of atrial fibrillation. Neurological examination her virtual does not give me the [id number] examination by a neurologist accurate diagnosis and will proceed for MRI of the brain for evaluation of the internal capsule and the nuclear stroke. Hopefully Balbir tomorrow one of the neurologists that able to come to the facility to see the patient and evaluate him. Assessment: #1 acute congestive heart failure biventricular #2 pulmonary hypertension with valvular heart disease and mitral valve prolapse #3 impaired systolic function ejection fraction is 45%. #4 atrial fibrillation with rapid ventricular response on admission current stable response #5 hypokalemia added to the program Aldactone by Dr. Kincaid #6 his renal function still stable. #7 hypothyroidism stable. Plan: #1 we'll continue the current treatment and diuresis. #2 proceed with DVT evaluation and bilateral venous duplex scan to rule out blood clot. #3 proceed with MRI of the brain with contrast tomorrow to rule out internal capsule stroke with the midline abnormalities #4 I still requesting neurology consultation tomorrow was [id number] evalu ation by neurologist not virtual Objective - Vital Signs Vital signs: Vital Signs Temp 97.6 F 12/02/20 11:12 Pulse 80 12/02/20 11:12 Resp 18 12/02/20 11:12 BP 109/79 12/02/20 11:12 Pulse Ox 93 L 12/02/20 11:12 Intake & Output 12/01/20 12/02/20 12/02/20 18:59 06:59 18:59 Intake Total 840 240 360 Output Total 800 Balance 840 -560 360 Weight 81.8 kg Intake: Oral 840 240 360 Output: Urine 800 Other: Voiding Method External Catheter External Catheter Toilet Urinal # Voids 1 2 3 # Bowel Movements 1 - Labs CBC & Chem 7: 12/01/20 06:52 12/02/20 09:25 Labs: Abnormal Lab Results - Last 24 Hours (Table) 12/01/20 12/01/20 12/01/20 Range/Units 14:30 16:35 20:14 D-Dimer 1.03 H (<0.60) mg/L FEU Potassium (3.5-5.1) mmol/L Carbon Dioxide (22-30) mmol/L BUN (9-20) mg/dL Glucose (74-99) mg/dL POC Glucose (mg/dL) 106 H 102 H (75-99) mg/dL 12/02/20 Range/Units 09:25 D-Dimer (<0.60) mg/L FEU Potassium 2.9 L (3.5-5.1) mmol/L Carbon Dioxide 35 H (22-30) mmol/L BUN 23 H (9-20) mg/dL Glucose 123 H (74-99) mg/dL POC Glucose (mg/dL) (75-99) mg/dL
[2020-12-02] MEDS: ATORVASTATIN 20 MG TAB PO SCH (19:48)
[2020-12-03] MEDS: FUROSEMIDE 10 MG/ML 4 ML VIAL IV SCH (06:39)
[2020-12-03] MEDS: LEVOTHYROXINE 50 MCG TAB PO SCH (06:39)
--- NOTE | 2020-12-03 07:44 | US ---
EXAMINATION TYPE: US venous doppler duplex LE BI DATE OF EXAM: 12/03/2020 7:26 AM COMPARISON: 04/05/2017 CLINICAL HISTORY: Edema of the lower extremities, elevated d-dimer . bilat leg edema, patient thinks he had a clot in the past but very confused, elevated d-dimer SIDE PERFORMED: Bilateral TECHNIQUE: The lower extremity deep venous system is examined utilizing real time linear array sonog germaine with graded compression, doppler sonography and color-flow sonography. VESSELS IMAGED: Common Femoral Vein Deep Femoral Vein Greater Saphenous Vein * Femoral Vein Popliteal Vein Small Saphenous Vein * Proximal Calf Veins (* superficial vessels) Right Leg: Negative for DVT Left Leg: Negative for DVT IMPRESSION: Grayscale, color doppler, spectral doppler imaging performed of the deep veins of the lo wer extremities. There is normal flow, compressibility, vascular waveforms.
[2020-12-03] MEDS: METOPROLOL TARTRATE 25 MG TAB PO SCH ×2 (08:16→19:31)
[2020-12-03] MEDS: APIXABAN 5 MG TAB PO SCH ×2 (08:16→19:31)
[2020-12-03] MEDS: ZINC SULFATE 220 MG CAP PO SCH (08:16)
[2020-12-03] MEDS: NON FORMULARY DRUG (Dextroamphetamine/Amphetamine [Adderall] 10 MG Tablet) PO SCH (08:16)
[2020-12-03] MEDS: ESCITALOPRAM 10 MG TAB PO SCH (08:16)
[2020-12-03] MEDS: buPROPion 75 MG TAB PO SCH (08:17)
[2020-12-03] MEDS: SPIRONOLACTONE 25 MG TAB PO SCH (08:17)
[2020-12-03] MEDS: CYANOCOBALAMIN 500 MCG TAB PO SCH (08:17)
[2020-12-03] MEDS: lisinopriL 5 MG TAB PO SCH ×2 (08:17→19:31)
[2020-12-03] MEDS: POTASSIUM CHLORIDE ER 20 MEQ TAB.ER PO SCH ×2 (08:17→19:31)
[2020-12-03 08:48] LABS: Calcium 9.1 mg/dL (8.4-10.2); Potassium 3.7 mmol/L (3.5-5.1)
--- NOTE | 2020-12-03 12:07 | P.CNNES ---
History of Present Illness Consult date: 12/03/20 Requesting physician: Beau Jones Reason for Consult: rule out stroke History of Present Illness: This is an 85-year-old gentleman with medical history of reported memory impairement, sleep apnea on CPAP, hypothyroidism, DVT of the right thigh presented emergency department on 11/30/2020 for some generalized weakness and new onset atrial fibrillation per the ED note. Some of the history was obtained from medical record and nurse. Per the primary team's note it is mentioned that the patient's is complaining the patient has aphasia since the patient had intervention over the shoulder region. Primary team is concerned for stroke because of this area patient's aphasia. The primary team ordered MRI of the brain and it's pending. The patient has peripheral edema of lower extremities and that is thought the patient has a fluid overload and evidence of congestive heart failure with impaired left ventricular systolic function. Cardiology is consulted and the patient was placed on Eliquis 5 mg 1 tablet twice a day. As well as the patient was placed on Lipitor 20 mg daily at bedtime. According to patient he stated that about a week to 2 weeks ago he had a fall and he he described it as the as his ankle got twisted as a result he fell. As a result he has a left forearm cast. Patient was evaluated by Dr. Smith neurologist as an outpatient and the per the primary team met note that is mentioned that he excluded the of the patient having dementia and he did not proceed to evaluate with MRI and the patient lost to follow-up with Dr. Smith as an outpatient. The patient's nurse and she stated that the stated the patient's is alert oriented 4 but during the nighttime he'll become confused. Some of the patient on medication consist of Wellbutrin, zinc, Synthroid, Lasix, Lexapro, vitamin B12 1000 g daily, Adderall 10 mg daily, Lexapro. Some of the workup in the hospital consisted of: CT of the head is reported as no acute intracranial hemorrhage, midline shift or mass effect. There is no acute or subacute ischemia appreciated on the CT of the head upon reviewing and there is no interparenchymal bleed. EKG is reported as age are fibrillation with rapid ventricular response. Right bundle branch block. T wave abnormality, consider inferior ischemia. Abnormal EKG. CBC with differential seems unremarkable. Lipid panel: Triglyceride of 62, cholesterol is 158, LDL of 93 and HDL of the 52. Calcium is 9.0 and magnesium 2.0 which is within normal limits. TSH is 2.30 which is within normal limits. AST of the 15 ALT of 67. Patient had a 2-D echo on 11/30/2020 it's reported as moderate concentric left ventricular hypertrophy. Ejection fraction of 45-50%. Left atrium is severely dilated that. Mild to moderate tricuspid Regurgitation. Review of Systems Review of system: The 12 point system was reviewed and apparent positive and negative per HPI. Past Medical History Past Medical History: Deep Vein Thrombosis (DVT), Memory Impairment, Sleep Apnea/CPAP/BIPAP, Thyroid Disorder Additional Past Medical History / Comment(s): hx. DVT right thigh, uses CPAP, fell & fx. 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 History of Any Multi-Drug Resistant Organisms: None Reported Past Surgical History: Appendectomy, Orthopedic Surgery Additional Past Surgical History / Comment(s): cervical laminectomy, vania cataract., repair left tibial and ankle fx after injury- 2011, rt shoulder reversal Past Anesthesia/Blood Transfusion Reactions: No Reported Reaction Past Psychological History: Depression Smoking Status: Never smoker Past Alcohol Use History: None Reported Past Drug Use History: None Reported - Past Family History Mother Family Medical History: No Reported History Additional Family Medical History / Comment(s): . Medications and Allergies Home Medications Medication Instructions Recorded Confirmed Type Levothyroxine Sodium [Synthroid] 50 mcg PO DAILY 06/05/16 11/30/20 History Dextroamphetamine/Amphetamine 10 mg PO DAILY 06/13/20 11/30/20 History [Adderall] Escitalopram [Lexapro] 10 mg PO DAILY 06/13/20 11/30/20 History buPROPion [Wellbutrin] 75 mg PO DAILY 06/13/20 11/30/20 History Cyanocobalamin (Vitamin B-12) 1,000 mcg PO DAILY 06/20/20 11/30/20 History [Vitamin B-12] Joint Support 2 tab PO DAILY 06/20/20 11/30/20 History Liver Support 4 tab PO DAILY 06/20/20 11/30/20 History Memory Support 1 tab PO DAILY 06/20/20 11/30/20 History Perfect Amino 5 tab PO DAILY 06/20/20 11/30/20 History Furosemide [Lasix] 20 mg PO DAILY 11/30/20 11/30/20 History Levofloxacin [Levaquin] 500 mg PO DAILY 11/30/20 11/30/20 History Potassium Chloride [Potassium 10 meq PO DAILY 11/30/20 11/30/20 History Chloride ER] Ubidecarenone [Co Q-10] 100 mg PO DAILY 11/30/20 11/30/20 History Zinc 50 mg PO DAILY 11/30/20 11/30/20 History Apixaban [Eliquis] 5 mg PO BID 30 Days #60 tab 12/03/20 Rx Allergies Allergy/AdvReac Type Severity Reaction Status Date / Time Penicillins Allergy Unknown Verified 11/30/20 16:48 Physical Examination - Vital Signs Vital Signs: Vital Signs Temp Pulse Pulse Resp BP Pulse Ox 12/03/20 10:29 98 F 68 16 119/61 98 12/03/20 07:54 60 16 12/03/20 07:53 98 F 60 16 123/56 98 12/03/20 04:00 77 18 133/79 95 12/03/20 00:00 87 18 135/78 95 12/02/20 20:00 98.1 F 80 18 116/78 94 L 12/02/20 15:42 97.9 F 90 18 136/93 95 12/02/20 14:00 90 18 Intake and Output 12/02/20 12/03/20 12/03/20 22:59 06:59 14:59 Intake Total 120 480 Output Total 200 175 Balance -80 305 Intake: Oral 120 480 Output: Urine 200 175 Other: Voiding Method Toilet Toilet Toilet Urinal Urinal Urinal # Voids 1 1 Weight 81 kg GENERAL: The patient is lying in bed and is not in acute distress. CHEST: The heart rate is regular rate rhythm. No murmurs to auscultation. LUNG: Clear to auscultation bilaterally no wheezing noted throughout. Not labored breathing. ABDOMEN/GI: Bowel sounds present in all 4 quadrants. No tenderness to palpation throughout. NEUROLOGICAL: Higher mental function: The patient is awake, alert, oriented to self. He stated the year is 1970 but correctly stated the month. He stated he was in the hospital and attempting to state [facility]. He is able to name objects correctly (pen, cup and watch). Patient is following commands. No aphasia that seemed obvious. No neglect. Intact repetition. Cranial nerves: The pupils are round, equal and reactive to light and accommodation. Visual cabrera are full to confrontation throughout. Extraocular movement is intact no nystagmus is noted. Facial sensation is normal to touch throughout. The facial strength is normal throughout. Hearing is moderately decreasedl bilaterally to hand rub. Tongue is midline and moved [id number] without any difficulty. No dysarthria is noted. Shoulder shrug is normal bilaterally. Motor: Gait is deferred. The strength is left upper extremity is limited since had case on left forearm but has antigravity and no pronator drift over the left arm and good hand human services assistant. Otherwise 5 over 5 throughout. Normal tone and bulk. Cerebellum: Normal finger to nose bilaterally. Sensation: Sensation is normal to touch throughout. Reflexes (right/left): 2+ throughout uppers while lowers are 1-2 patellar and ankles are 1+. Plantars are mute bilaterally. Results WORK-UP: Urinalysis is negative for urinary tract infection [place] virus PCR was not detected Basic Cryoblation study is unremarkable but the d-dimer is 1.03 which is slightly elevated - Laboratory Findings CBC and BMP: 12/01/20 06:52 12/03/20 07:50 Abnormal Lab Findings: Abnormal Labs 11/30/20 12/01/20 12/01/20 16:04 05:20 06:52 RBC D-Dimer Potassium Carbon Dioxide 31 H BUN 21 H Glucose POC Glucose (mg/dL) AST 88 H ALT 73 H 67 H Total Protein 6.0 L Urine Blood Trace H Urine RBC 10 H Hyaline Casts 5 H Urine Mucus Rare H 12/01/20 12/01/20 12/01/20 06:52 06:52 11:43 RBC 4.29 L D-Dimer Potassium 2.8 L Carbon Dioxide 31 H BUN Glucose POC Glucose (mg/dL) 134 H AST ALT Total Protein Urine Blood Urine RBC Hyaline Casts Urine Mucus 12/01/20 12/01/20 12/01/20 14:30 16:35 20:14 RBC D-Dimer 1.03 H Potassium Carbon Dioxide BUN Glucose POC Glucose (mg/dL) 106 H 102 H AST ALT Total Protein Urine Blood Urine RBC Hyaline Casts Urine Mucus 12/02/20 12/03/20 09:25 07:50 RBC D-Dimer Potassium 2.9 L Carbon Dioxide 35 H 33 H BUN 23 H 30 H Glucose 123 H POC Glucose (mg/dL) AST ALT Total Protein Urine Blood Urine RBC Hyaline Casts Urine Mucus Assessment and Plan Assessment: Reported complaint of aphasia (by family members but on examination it was not that obvious). Rule out stroke. Reported complaint of memory impairment (no official diagnosis of dementia and patient did not have extensive work-up as outpatient) New onset Atrial fibrillation on eliquis. Peripherall edema with fluid overload and evidence of congestive heart failure with mildly impaired left ejection fraction Hypothyroidism History of DVT of the right thigh Reported complaint of aphasia. Rule out stroke. Reported complaint of memory impairment (no official diagnosis of dementia and patient did not have extensive work-up as outpatient) New onset Atrial fibrillation on eliquis. Peripherall edema with fluid overload and evidence of congestive heart failure with mildly impaired left ejection fraction Hypothyroidism History of DVT of the right thigh Sleep Apnea Plan: MRI the brain is ordered by the primary team is pending. I ordered the carotid duplex. Patient is on Eliquis 5 mg tablet twice a day and Lipitor 20 mg daily at bedtime for secondary stroke prophylaxis.. I ordered vitamin B12 and folate level to rule out any reversible vitamin deficiencies. Currently the patient is on vitamin B-12 1000 g daily (home dos e). I also ordered hemoglobin A1c. Every 4 hours neuro checks. On cardiac monitoring PT is consulted. I consulted the occupation therapy and speech therapy. I ordered orthostatic vitals and that to be done if the patient is stable. Cardiology is on board. We'll defer the rest of the medical measure the primary team. The plan is discussed with the patient's nurse. Thank you for the consultation. Erick Claros M.D. Neuro-hospitalist Time with Patient: Greater than 30
--- NOTE | 2020-12-03 12:43 | MR ---
EXAMINATION TYPE: MR brain wo/w con DATE OF EXAM: 12/03/2020 12:33 PM COMPARISON: NONE HISTORY: Anticoagulation, recent head injury, evaluate for stroke. CONTRAST: Patient received 8 mL intravenous Gadavist gadolinium contrast. Multiplanar and multispin-echo imaging of the brain was performed . Pre and post contrast enhanced i mages are obtained. The ventricles, basal cisterns and sulci overlying the cerebral convexities are mildly enlarged. There is evidence of mild periventricular white matter ischemic demyelination. Remote deep white matter insults are also noted. No acute edema is seen on diffusion weighted imaging. There is no evidence for midline shift or mass effect. Acute intracranial hemorrhage or extra-axial collection is not evident. No enhancing lesions are seen. The paranasal sinuses and mastoid air cells are well-aerated. IMPRESSION: Age-related atrophic and chronic small vessel ischemic change. No acute intracranial process at this time. No enhancing lesions are seen.
--- NOTE | 2020-12-03 14:04 | US ---
EXAMINATION TYPE: US carotid duplex BILAT DATE OF EXAM: 12/03/2020 COMPARISON: None CLINICAL HISTORY: stroke. Stroke per order. EXAM MEASUREMENTS: RIGHT: Peak Systolic Velocity (PSV) cm/sec ----- Right CCA: 54.6 ----- Right ICA: 54.4 ----- Right ECA: 73.2 ICA/CCA ratio: 1.0 RIGHT: End Diastole cm/sec ----- Right CCA: 11.9 ----- Right ICA: 15.1 ----- Right ECA: 10.6 LEFT: Peak Systolic Velocity (PSV) cm/sec ----- Left CCA: 57.2 ----- Left ICA: 77.0 ----- Left ECA: 82.3 ICA/CCA ratio: 1.3 LEFT: End Diastole cm/sec ----- Left CCA: 7.5 ----- Left ICA: 16.8 ----- Left ECA: 14.2 VERTEBRALS (direction of flow): Right Vertebral: Antegrade Left Vertebral: Antegrade Rhythm: Arrhythmia No elevated velocities at this time. Plaque seen bilateral carotid bulbs, left ECA, and left ICA. Hypoechoic area with hyperechoic center seen within the left neck: 0.7 x 0.5 x 0.4 cm. IMPRESSION: 1. No diagnostic evidence of significant hemodynamic stenosis. 2. Tiny lymph node. 3. Cardiac dysrhythmia NASCET criteria was used in interpretation of this exam? Criteria for Assigning % of Stenosis / Diameter reduction (Estimation based on the indirect measurements of the internal carotid artery velocities (ICA PSV). 1. Normal (no stenosis)=ICA PSV < 125 cm/s: ratio < 2.0: ICA EDV<40 cm/s. 2. Less than 50% stenosis=ICA PSV < 125 cm/s: ratio < 2.0: ICA EDV<40 cm/s. 3. 50 to 69% stenosis=ICA PSV of 125 to 230 cm/s: ration 2.0 ? 4.0: ICA EDV 40-100 cm/s. 4. Greater than 70% stenosis to near occlusion= ICA PSV > 230 cm/s: ratio > 4.0: ICA EDV > 100 cm/s. 5. Near occlusion= ICA PSV velocities may be low or undetectable: variable ratio and ICA EDV. 6. Total occlusion=unable to detect flow.
--- NOTE | 2020-12-03 15:58 | P.PN ---
Subjective Progress Note Date: 12/03/20 (Congestive heart failure biventricular was impaired with ejection fraction and atrial fibrillation new-onset.) Breasts not date of service 12/03/2020. Dictation by Dr. Douglas Lazcano [facility]. Patient seen today [id number] and examined. Also discussed with Dr. Claros neurologist. Patient had the MRI of the brain which was negative for stroke, no evidence of internal capsule abnormalities to indicate his problem. Carotid duplex study ordered by Dr. Claros and was no hemodynamic significant stenosis. With the edema of the lower extremities and elevated d-dimer, venous duplex ultrasound of the lower extremities bilateral was done and was negative With the echocardiogram and impaired ejection fraction with 45% associated with valvular heart disease and mitral valve prolapse and pulmonary hypertension. Hypertension with hypertensive heart disease currently controlled with medication. With the underlying hypokalemia currently corrected with the adding Aldactone 25 mg once daily. And continued the SARINA inhibitor. And diuresis. On the physical examination: Patient conscious alert he will to answer some questions however he still has someimpediment and had walking difficulties as well as he has incontinence of the urine with enlarged prostate with a normal PSA. Head was normocephalic and atraumatic the pupil was equal reactive conjunctiva was pink sclera was nonicteric, oropharynx natural teeth . Neck was supple no JVD no thyromegaly no lymphadenopathy with the significant improvement on his lower extremities edema. His chest is clear to auscultation and percussion today and the heart was irregular irregularity with the atrial fibrillation and controlled ventricular response. He has a history of valvular heart disease as well as mitral valve prolapse. The echo conclusion indicate moderate concentric left ventricular hypertrophy, impaired ejection fraction to 45%, left atrial severely dilated more than 40 mL her meter square. Mild right atrium enlargement. Moderate aortic valve scler osis. Moderate aortic regurgitation. Mild mitral annular calcification. Moderate mitral regurgitation present. Mild mitral valve prolapse. [id number] tricuspid regurgitation. Mild pulmonary hypertension. Inferior vena cava is dilated with poor inspiratory collapse. Small generalized pericardial effusion present. Abdomen is soft positive bowel sounds no tenderness in the 4 quadrants no constipation or diarrhea. Extremities 1+ edema of the lower extremities which significant improvement from 4+. Pulses is intact he had worse edema on the left ankle more than the right with a history of previous fracture in 3 pieces. Neurologically evaluated by Dr. Basha and softer indicator of his finding will be followed. As well as his impression. Assessment and plan #1 improvement of congestive heart failure progressed #2 will plan for discharge home if cleared by cardiology and no farther testing or invasive testing. All #3 and will be waiting also with the final opinion of the neurologist. Objective - Vital Signs Vital signs: Vital Signs Temp 98.5 F 12/03/20 14:22 Pulse 66 12/03/20 14:22 Resp 16 12/03/20 14:22 BP 121/66 12/03/20 14:22 Pulse Ox 98 12/03/20 14:22 Intake & Output 12/02/20 12/03/20 12/03/20 18:59 06:59 18:59 Intake Total 840 720 Output Total 200 175 Balance 840 -200 545 Weight 81 kg Intake: Oral 840 720 Output: Urine 200 175 Other: Voiding Method Toilet Toilet Toilet Urinal Urinal Urinal # Voids 3 1 - Labs CBC & Chem 7: 12/01/20 06:52 12/03/20 07:50 Labs: Abnormal Lab Results - Last 24 Hours (Table) 12/03/20 Range/Units 07:50 Carbon Dioxide 33 H (22-30) mmol/L BUN 30 H (9-20) mg/dL
--- NOTE | 2020-12-03 16:25 | P.PN ---
Subjective This is an 85-year-old male with a past medical history of sleep apnea, hypothyroidism, DVT hypertension. Unknown if patient follows with a cardiolo gist. Patient presents emergency department at 11/30/2020 for new onset atrial fibrillation.Patient was at his PCP office for generalized weakness and lower extremity swelling. He was sent for echo and an EKG this morning. Patient was noted to be in atrial fibrillation and was sent to the emergency department for further evaluation. Patient was started on Eliquis 5 mg twice a day, metoprolol tartrate 50 mg twice a day. His echocardiogram revealed an EF of 4550 percent, LA severely dilated, moderate aortic regurgitation, moderate mitral regurgitation, mild to moderate tricuspid regurgitation, mild pulmonary hypertension with an RVSP of 20 mmHg, small generalized pericardial effusion present. 12/03/2020: Patient seen and examined at bedside, appears to be confused. He cannot exactly similar problem to the hospital. Blood pressure 121/66, heart rate 66, afebrile, maintaining oxygen saturations on room air. He's currently maintained on Eliquis 5 mg twice a day, metoprolol titrate 50 mg twice a day, atorvastatin 20 mg nightly, lisinopril 5 mg twice a day, spironolactone 25 mg daily. Laboratory data reviewed, sodium 143, potassium 3.7, BUN 30, serum creatinine 1.0, magnesium 2.2. He continues to be in atrial fibrillation with controlled ventricular rates. GENERAL: Well-appearing, well-nourished and in no acute distress. NECK: Supple without JVD or thyromegaly. LUNGS: Breath sounds clear to auscultation bilaterally. Respiration equal and unlabored. No wheezes, rales or rhonchi. HEART: Regular rate and rhythm without murmurs, rubs or gallops. S1 and S2 heard. EXTREMITIES: Normal range of motion, no edema. No clubbing or cyanosis. Peripheral pulses intact. ASSESSMENT Paroxysmal atrial fibrillation with rapid ventricular response Cardiomyopathy- possibly related to atrial fibrillation with RVR Generalized weakness History of hypertension History of DVT History hypothyroidism Obstructive sleep apnea PLAN Continue metoprolol tartrate 50mg BID Continue Eliquis 5mg BID- will consult case management in terms of cost for patient Appears euvolemic on exam, Stop IV Lasix for now Monitor renal function and electrolytes Further recommendations based on clinical course Nurse Practitioner note has been reviewed, I agree with a documented findings and plan of care. Patient was seen and examined. Objective - Vital Signs Vital signs: Vital Signs Temp 98.5 F 12/03/20 14:22 Pulse 66 12/03/20 14:22 Resp 16 12/03/20 14:22 BP 121/66 12/03/20 14:22 Pulse Ox 98 12/03/20 14:22 Intake & Output 12/02/20 12/03/20 12/03/20 18:59 06:59 18:59 Intake Total 840 720 Output Total 200 175 Balance 840 -200 545 Weight 81 kg Intake: Oral 840 720 Output: Urine 200 175 Other: Voiding Method Toilet Toilet Toilet Urinal Urinal Urinal # Voids 3 1 - Labs CBC & Chem 7: 12/01/20 06:52 12/03/20 07:50 Labs: Abnormal Lab Results - Last 24 Hours (Table) 12/03/20 Range/Units 07:50 Carbon Dioxide 33 H (22-30) mmol/L BUN 30 H (9-20) mg/dL
[2020-12-03] MEDS: ATORVASTATIN 20 MG TAB PO SCH (19:31)
[2020-12-04 02:43] LABS: Folate, Serum >24.0 ng/mL
[2020-12-04] MEDS: LEVOTHYROXINE 50 MCG TAB PO SCH (06:44)
[2020-12-04] MEDS: CYANOCOBALAMIN 500 MCG TAB PO SCH (09:23)
[2020-12-04] MEDS: APIXABAN 5 MG TAB PO SCH (09:23)
[2020-12-04] MEDS: ESCITALOPRAM 10 MG TAB PO SCH (09:23)
[2020-12-04] MEDS: POTASSIUM CHLORIDE ER 20 MEQ TAB.ER PO SCH (09:23)
[2020-12-04] MEDS: METOPROLOL TARTRATE 25 MG TAB PO SCH (09:23)
[2020-12-04] MEDS: SPIRONOLACTONE 25 MG TAB PO SCH (09:23)
[2020-12-04] MEDS: lisinopriL 5 MG TAB PO SCH (09:23)
[2020-12-04] MEDS: buPROPion 75 MG TAB PO SCH (09:23)
[2020-12-04] MEDS: ZINC SULFATE 220 MG CAP PO SCH (09:24)
[2020-12-04] MEDS: NON FORMULARY DRUG (Dextroamphetamine/Amphetamine [Adderall] 10 MG Tablet) PO SCH (09:24)
[2020-12-04 10:45] VITALS: BP 140/87; PULSE 67; RESP 20; TEMP 98.5
--- NOTE | 2020-12-04 12:42 | P.PN ---
Subjective This is an 85-year-old male with a past medical history of sleep apnea, hypothyroidism, DVT hypertension. Unknown if patient follows with a cardiolo gist. Patient presents emergency department at 11/30/2020 for new onset atrial fibrillation.Patient was at his PCP office for generalized weakness and lower extremity swelling. He was sent for echo and an EKG this morning. Patient was noted to be in atrial fibrillation and was sent to the emergency department for further evaluation. Patient was started on Eliquis 5 mg twice a day, metoprolol tartrate 50 mg twice a day. His echocardiogram revealed an EF of 4550 percent, LA severely dilated, moderate aortic regurgitation, moderate mitral regurgitation, mild to moderate tricuspid regurgitation, mild pulmonary hypertension with an RVSP of 20 mmHg, small generalized pericardial effusion present. 12/04/2020: Patient seen and examined at bedside, appears to be confused. He is alert, comfortable. Denies shortness of breath, chest pain, palpitations, lightheadedness. Blood pressure 128/56 heart rates are controlled. He continues to be in atrial fibrillation. afebrile, maintaining oxygen saturations on room air. He's currently maintained on Eliquis 5 mg twice a day, metoprolol tartrate 50 mg twice a day, atorvastatin 20 mg nightly, lisinopril 5 mg twice a day, spironolactone 25 mg daily. GENERAL: Well-appearing, well-nourished and in no acute distress. NECK: Supple without JVD or thyromegaly. LUNGS: Breath sounds clear to auscultation bilaterally. Respiration equal and unlabored. No wheezes, rales or rhonchi. HEART: Regular rate and rhythm without murmurs, rubs or gallops. S1 and S2 heard. EXTREMITIES: Normal range of motion, no edema. No clubbing or cyanosis. Peripheral pulses intact. ASSESSMENT Paroxysmal atrial fibrillation with rapid ventricular response Cardiomyopathy- possibly related to atrial fibrillation with RVR Generalized weakness History of hypertension History of DVT History hypothyroidism Obstructive sleep apnea PLAN Continue metoprolol tartrate 50mg BID, Lisinopril, statin, and spironolactone Continue Eliquis 5mg BID- Per case management, Eliquis is covered with a co-pay of $36 From a cardiology perspective, patient is stable to be discharged Follow up outpatient with Dr. Izaguirre in the office. Nurse Practitioner note has been reviewed, I agree with a documented findings and plan of care. Patient was seen and examined. Objective - Vital Signs Vital signs: Vital Signs Temp 98.3 F 12/03/20 20:00 Pulse 72 12/04/20 04:00 Resp 18 12/04/20 04:00 BP 128/56 12/04/20 04:00 Pulse Ox 93 L 12/04/20 04:00 Intake & Output 12/03/20 12/04/20 12/04/20 18:59 06:59 18:59 Intake Total 720 Output Total 175 760 Balance 545 -760 Weight 81 kg Intake: Oral 720 Output: Urine 175 760 Other: Voiding Method Toilet Toilet Urinal Urinal # Voids 2 - Labs CBC & Chem 7: 12/01/20 06:52 12/03/20 07:50 Labs: Abnormal Lab Results - Last 24 Hours (Table) 12/03/20 12/03/20 Range/Units 07:50 07:50 Carbon Dioxide 33 H (22-30) mmol/L BUN 30 H (9-20) mg/dL Vitamin B12 1085.0 H (200.0-944.0) pg/mL
--- NOTE | 2020-12-04 13:35 | P.DS ---
Providers Date of admission: 12/01/20 11:10 Expected date of discharge: 12/04/20 Attending physician: Beau Jones Consults: 11/30/20 18:51 Consult Physician Urgent Consulting Provider: [facility] Consult Reason/Comments: aechf, new onset afib Do you want consulting provider notified?: Yes 11/30/20 20:25 Consult Physician Urgent Consulting Provider: Erick Claros Consult Reason/Comments: frequent falls Do you want consulting provider notified?: Yes, Notify in am Primary care physician: Beau Jones Discharge summary dictated by Dr. Jones date of service 12/04/2020 Discussed with the patient and his and will follow-up next week or this week. Final diagnosis Final diagnosis: #1 acute congestive heart failure biventricular systolic and diastolic #2 peripheral edema. 4+ with the pleural effusion by the chest x-ray and elevated pro-BMP and shortness of breath and heavy lower extremities could not walk. #3 atrial fibrillation with rapid ventricular response of when he wants it discharge with anticoagulation request by Dr. Izaguirre #4 walking disability need for further rehabilitation has inpatient. #5 underlying speech impediment with a negative computed tomography scan, negative MRI. #6 hypothyroidism stable. #7 mitral valve prolapse, pulmonary hypertension, mitral regurg oriented regurg, tricuspid regurg with the impaired ejection fraction 45%. #8 underlying coronary artery disease atherosclerotic heart disease. #9 urinary incontinent unclear etiology. #10 controlled atrial fibrillation on discharge by controlling the rate. 11 hypertension with hypertensive heart disease. Consultation with cardiology Dr. Izaguirre and neurology neurology Dr. Claros Presentation in the ER with shortness of breath heavy lower extremities with edema and congestive heart failure by the chest x-ray and proBNP Hospital course: Patient diuresed consultation with the [facility] and neurology Patient progressed fairly well currently improved his edema of the lower extremities and the reasoning as well and atrial fibrillation is currently controlled physical therapy was also ordered and visiting nurse was ordered. On exam on discharge: Discussed with his at bedside and the patient and he is conscious alert oriented able to communicate with some difficulties. Head was normocephalic and atraumatic, pupil was equal reactive, oropharynx natural teas able to eat and swallow without choking. Neck was supple no JVD no thyromegaly no lymphadenopathy trachea midline. Chest was clear to auscultation and percussion. Heart irregular irregularities with atrial fibrillation controlled ventricular response. Abdomen soft positive bowel sounds no organ enlargement. No Clemons catheter Neurological examination: Difficulty walking with wide base, urinary incontinence urology unclear no history of surgery on the prostate with benign normal PSA Assessment patient stable to be discharged home today after clearance from cardiology with the current medication. Plan visiting nurse and physical therapy as outpatient Follow-up with Dr. Quintana and cardiology Follow-up with Dr. Corley psychiatry. Follow-up with Dr. Hastings the neurology. Patient Condition at Discharge: Stable Plan - Discharge Summary Discharge Rx Participant: No New Discharge Prescriptions: New Apixaban [Eliquis] 5 mg PO BID 30 Days #60 tab Atorvastatin [Lipitor] 20 mg PO HS 30 Days #30 tab lisinopriL [Zestril] 5 mg PO BID 30 Days #60 tab Spironolactone [Aldactone] 25 mg PO DAILY 30 Days #30 tab Metoprolol Tartrate [Lopressor] 50 mg PO BID 30 Days #120 tab Continue Levothyroxine Sodium [Synthroid] 50 mcg PO DAILY buPROPion [Wellbutrin] 75 mg PO DAILY Dextroamphetamine/Amphetamine [Adderall] 10 mg PO DAILY Potassium Chloride [Potassium Chloride ER] 10 meq PO DAILY Ubidecarenone [Co Q-10] 100 mg PO DAILY Escitalopram [Lexapro] 10 mg PO DAILY Furosemide [Lasix] 20 mg PO DAILY Discontinued Cyanocobalamin (Vitamin B-12) [Vitamin B-12] 1,000 mcg PO DAILY Levofloxacin [Levaquin] 500 mg PO DAILY Perfect Amino 5 tab PO DAILY Memory Support 1 tab PO DAILY Liver Support 4 tab PO DAILY Joint Support 2 tab PO DAILY Zinc 50 mg PO DAILY Discharge Medication List Levothyroxine Sodium [Synthroid] 50 mcg PO DAILY 06/05/16 [History] Dextroamphetamine/Amphetamine [Adderall] 10 mg PO DAILY 06/13/20 [History] Escitalopram [Lexapro] 10 mg PO DAILY 06/13/20 [History] buPROPion [Wellbutrin] 75 mg PO DAILY 06/13/20 [History] Furosemide [Lasix] 20 mg PO DAILY 11/30/20 [History] Potassium Chloride [Potassium Chloride ER] 10 meq PO DAILY 11/30/20 [History] Ubidecarenone [Co Q-10] 100 mg PO DAILY 11/30/20 [History] Apixaban [Eliquis] 5 mg PO BID 30 Days #60 tab 12/03/20 [Rx] Atorvastatin [Lipitor] 20 mg PO HS 30 Days #30 tab 12/04/20 [Rx] Metoprolol Tartrate [Lopressor] 50 mg PO BID 30 Days #120 tab 12/04/20 [Rx] Spironolactone [Aldactone] 25 mg PO DAILY 30 Days #30 tab 12/04/20 [Rx] lisinopriL [Zestril] 5 mg PO BID 30 Days #60 tab 12/04/20 [Rx] Follow up Appointment(s)/Referral(s): Lisa Izaguirre MD [STAFF PHYSICIAN] - 2 Weeks Beau Jones MD [Primary Care Provider] - 1-2 days Activity/Diet/Wound Care/Special Instructions: $36.95 is copay for Eliquis and 1st month free coupon will be applied. Discharge Disposition: HOME WITH HOME HEALTH SERVICES
[2020-12-04] MEDS ORDERED: FUROSEMIDE 20 MG TAB PO SCH (16:00)
--- NOTE | 2020-12-04 17:57 | P.PN ---
Subjective Progress Note Date: 12/04/20 The patient is seen at bedside and feels he is doing better. He denies any focal weakness, numbness, visual disturbance. Objective - Vital Signs Vital signs: Vital Signs Temp 98.5 F 12/04/20 08:00 Pulse 67 12/04/20 08:00 Resp 20 12/04/20 08:00 BP 140/87 12/04/20 08:00 Pulse Ox 94 L 12/04/20 08:00 Intake & Output 12/03/20 12/04/20 12/04/20 18:59 06:59 18:59 Intake Total 720 480 Output Total 175 760 Balance 545 -760 480 Weight 81 kg Intake: Oral 720 480 Output: Urine 175 760 Other: Voiding Method Toilet Toilet Urinal Urinal # Voids 2 - Exam GENERAL: The patient is lying in bed and is not in acute distress. NEUROLOGICAL: Higher mental function: The patient is awake, alert, oriented to self and place. He stated the year is 1970 but correctly stated the month. He is able to name objects correctly (pen, cup and watch). Patient is following commands. No aphasia that seemed obvious. No neglect. Intact repetition. Cranial nerves: The pupils are round, equal and reactive to light and accom modation. Visual cabrera are full to confrontation throughout. Extraocular movement is intact no nystagmus is noted. Facial sensation is normal to touch throughout. The facial strength is normal throughout. Hearing is moderately decreasedl bilaterally to hand rub. Tongue is midline and moved [id number] without any difficulty. No dysarthria is noted. Shoulder shrug is normal bilaterally. Motor: Gait is deferred. The strength is left upper extremity is limited since had case on left forearm but has antigravity and no pronator drift over the left arm and good hand vp genetic. Otherwise 5 over 5 throughout. Normal tone and bulk. Cerebellum: Normal finger to nose bilaterally. Sensation: Sensation is normal to touch throughout. Reflexes (right/left): 2+ throughout uppers while lowers are 1-2 patellar and ankles are 1+. Plantars are mute bilaterally. WORK-UP: MRI Brain w/ and w/o: Is reported as age-related atrophic and chronic small vessel ischemic change. No acute intracranial process seen at this time. No enhancing lesion are seen. Carotid Duplex was reported as no diagnostic evidence of significant hemodynamic stenosis. Tiny left noted. Cardiac dysrhythmia. Vitamin B12 is 1085 which is considered within normal limits Folate is more than 24 which is within normal limits TSH is 2.30 which is within normal limits. Lipid panel: Triglyceride of 62, cholesterol of 158, LDL of 93, HDL 52. - Labs CBC & Chem 7: 12/01/20 06:52 12/03/20 07:50 Labs: Abnormal Lab Results - Last 24 Hours (Table) 12/03/20 Range/Units 07:50 Vitamin B12 1085.0 H (200.0-944.0) pg/mL Assessment and Plan Assessment: Reported complaint of aphasia (by family members but on examination it was not that obvious). MRI is negative for stroke Reported complaint of memory impairment (no official diagnosis of dementia). Possible patient has underlying cognitive impairement/dementia New onset Atrial fibrillation on eliquis. Peripherall edema with fluid overload and evidence of congestive heart failure with mildly impaired left ejection fraction Hypothyroidism History of DVT of the right thigh Reported complaint of aphasia. Rule out stroke. Reported complaint of memory impairment (no official diagnosis of dementia and patient did not have extensive work-up as outpatient) New onset Atrial fibrillation on eliquis. Peripherall edema with fluid overload and evidence of congestive heart failure with mildly impaired left ejection fraction Hypothyroidism History of DVT of the right thigh Sleep Apnea Plan: Patient is on Eliquis 5 mg tablet twice a day and Lipitor 20 mg daily at bedtime for secondary stroke prophylaxis. Currently the patient is on vitamin B-12 1000 g daily (home dose). Every 4 hours neuro checks. On cardiac monitoring OT, PT and ELECTROFORMER are consulted. Cardiology is on board. We'll defer the rest of the medical measure the primary team. Upon discharge, patient needs to follow-up with a neurologist as outpatient within 1-2 weeks. Consider neuropsych evaluation as outpatient. There is no further neurological work-up. Erick Claros MD Neuro-Hospitalist. Time with Patient: Less than 30
== END 2020-12-04 14:13 | disposition home health service (06) | DRG 308 ==
LOC: EC 14:53 → 3SCARD 18:53 → OBSVTOIN 12-01 11:10
PROVIDERS: ADMIT Internal Medicine; ATTEND Internal Medicine
DX: I48.0 Paroxysmal atrial fibrillation (principal); I50.41 Acute combined systolic (congestive) and diastolic (congestive) heart failure; R47.01 Aphasia; I31.3 Pericardial effusion (noninflammatory); I11.0 Hypertensive heart disease with heart failure; R00.2 Palpitations; E03.9 Hypothyroidism, unspecified; E11.9 Type 2 diabetes mellitus without complications; E78.5 Hyperlipidemia, unspecified; E87.6 Hypokalemia; F03.90 Unspecified dementia, unspecified severity, without behavioral disturbance, psychotic disturbance, mood disturbance, and anxiety; F32.9 Major depressive disorder, single episode, unspecified; G47.33 Obstructive sleep apnea (adult) (pediatric); I08.3 Combined rheumatic disorders of mitral, aortic and tricuspid valves; I25.10 Atherosclerotic heart disease of native coronary artery without angina pectoris; I27.20 Pulmonary hypertension, unspecified; I45.10 Unspecified right bundle-branch block; I42.9 Cardiomyopathy, unspecified; I50.82 Biventricular heart failure; J44.9 Chronic obstructive pulmonary disease, unspecified; N40.0 Benign prostatic hyperplasia without lower urinary tract symptoms; R29.6 Repeated falls; R32 Unspecified urinary incontinence; Z20.822 Contact with and (suspected) exposure to COVID-19; M95.4 Acquired deformity of chest and rib; Z79.01 Long term (current) use of anticoagulants; Z79.890 Hormone replacement therapy; Z79.899 Other long term (current) drug therapy; Z86.718 Personal history of other venous thrombosis and embolism; Z86.73 Personal history of transient ischemic attack (TIA), and cerebral infarction without residual deficits; Z87.891 Personal history of nicotine dependence; Z88.0 Allergy status to penicillin; Z91.81 History of falling; M19.90 Unspecified osteoarthritis, unspecified site
CPT/HCPCS: 36415; 70450; 70553; 71046; 80048; 80053; 80061; 80076; 81001; 82607; 82746; 83735; 83880; 84443; 84484; 85025; 85379; 85610; 85730; 87635; 93005; 93880; 93970; 99285

== ENCOUNTER → 2020-11-30 | Outpatient (CLI) | payer MEDICARE, OTHER ==
--- NOTE | 2020-11-30 16:29 | ECHOF ---
Referral Reason:I50.9 Heart failure, unspecified MEASUREMENTS -------- HEIGHT: 162.6 cm WEIGHT: 86.2 kg BP: RVIDd: 3.9 cm (< 3.3) IVSd: 1.4 cm (0.6 - 1.1) LVIDd: 4.6 cm (3.9 - 5.3) LVPWd: 1.4 cm (0.6 - 1.1) IVSs: 1.6 cm LVIDs: 3.1 cm LVPWs: 1.5 cm LAESV Index (A-L): 42.98 ml/m Ao Diam: 2.5 cm (2.0 - 3.7) AV Cusp: 1.9 cm (1.5 - 2.6) LA Diam: 4.9 cm (2.7 - 3.8) MV EXCURSION: 23.279 mm (> 18.000) MV EF SLOPE: 57 mm/s (70 - 150) EPSS: 0.4 cm AR PHT: 677 ms RAP: 20.00 mmHg RVSP: 41.68 mmHg FINDINGS -------- This was a technically adequate study. The left ventricular size is normal. There is moderate concentric left ventricular hypertrophy. O verall left ventricular systolic function is mildly impaired with, an EF between 45 - 50 %. The right ventricle is mild to moderately enlarged. LA is severely dilated >40 ml/m2 The right atrium is mildly enlarged. Interatrial and interventricular septum intact. There is mild to moderate aortic valve sclerosis. There is moderate aortic regurgitation. There i s no evidence of aortic stenosis. The mitral valve leaflets are mildly thickened. Mild mitral annular calcification present. Modera te mitral regurgitation is present. There is mild mitral valve prolapse. [id number] tricuspid regurgitation present. There is mild pulmonary hypertension. The right ventricular systolic pressure, as measured by Doppler, is 41.68mmHg. There is no pulmonic regurgitation present. The aortic root size is normal. The inferior vena cava is dilated with poor inspiratory collapse which is consistent with estimated r ight atrial pressure of 20 mmHg. There is a small, generalized pericardial effusion present. CONCLUSIONS -------- 1. There is moderate concentric left ventricular hypertrophy. 2. Overall left ventricular systolic function is mildly impaired with, an EF between 45 - 50 %. 3. The right ventricle is mild to moderately enlarged. 4. LA is severely dilated >40 ml/m2 5. The right atrium is mildly enlarged. 6. There is mild to moderate aortic valve sclerosis. 7. There is moderate aortic regurgitation. 8. Mild mitral annular calcification present. 9. Moderate mitral regurgitation is present. 10. There is mild mitral valve prolapse. 11. [id number] tricuspid regurgitation present. 12. There is mild pulmonary hypertension. 13. The inferior vena cava is dilated with poor inspiratory collapse which is consistent with estimat ed right atrial pressure of 20 mmHg. 14. There is a small, generalized pericardial effusion present. SENIOR SALES EXECUTIVE: Alexa Herbert RDCS
--- NOTE | 2020-12-01 11:13 | CONS ---
CONSULTATION Mr. Ramsey is an 85-year-old male who presented and was admitted through the emergency room with finding of atrial fibrillation on his echocardiogram that was done as an outpatient. The patient is awake but appears to be confused at times. He apparently has been having peripheral edema for the last few weeks and he fell recently and fractured his left arm. He is denying any chest pain. He denies any dizziness. He denies any palpitation. He is not aware of the arrhythmia. He is not aware that he is in atrial fibrillation. He denies any PND orthopnea, but he has the peripheral edema as noted. He is limited in his physical activity with weakness. In the emergency room, he was noted to have findings consistent with congestive heart failure. Talking to the patient, he denies any prior cardiac history or recent cardiac workup. His coronary risk factors are negative for diabetes or smoking. I have no history of documented hypertension. His lipid profile is not available. MEDICATION: Include levothyroxine, Levaquin, Lasix 20 mg daily, Lexapro, Adderall, vitamin B12, and Wellbutrin. REVIEW OF SYSTEMS: Respiratory system: Patient denies any dyspnea and denies any cough or fever. GI system: He denies any nausea or vomiting. No GI bleeding. system: No dysuria or hematuria. Nervous system: No history of seizure according to him, although question he has no recollection of all the past history. PHYSICAL EXAMINATION: He is an 85-year-old male, alert, blood pressure 135/80 with a heart rate in the 80s. HEAD: Normocephalic. Eyes sclerae anicteric. NECK: Good carotid upstroke. No bruit. LUNGS: Clear to auscultation. HEART: Irregularly irregular S1, S2. No S3 with systolic murmur heard at the base ejection type. No diastolic murmur. No rub. ABDOMEN: Soft, nontender. EXTREMITIES was 2+ edema bilaterally. LAB DATA: Lab data revealed a potassium of 3.5, hemoglobin 14.1. BUN and creatinine 21 and 0.88. Troponin less than 0.012, 0.016 and 0.015. NT proBNP of 3610. TSH of 2.2. His potassium today is 2.8. He had an echocardiogram performed yesterday prior to the admission and the echocardiogram showed an ejection fraction of 45-50 percent with moderate aortic, moderate mitral and mild to moderate tricuspid regurgitation with mild mitral valve prolapse with evidence of mild pulmonary hypertension. His EKG showed atrial fibrillation with right bundle branch block and nonspecific ST-T wave changes and EKG from June of this year showed a sinus mechanism with right bundle branch block. IMPRESSION: 1. Atrial fibrillation is new since June, duration unknown. 2. Peripheral edema with signs of congestive heart failure with mildly impaired left ventricular systolic function. 3. History of recent fall and cast on the left upper extremity. 4. Hypokalemia, post diuresis. RECOMMENDATION: From the cardiac standpoint, I will continue diuresis, start him on a potassium supplementation. I will initiate treatment with anticoagulation. The patient was hypertensive on presentation but according to the medication list, he was not on antihypertensive regimen, raising possibility of long-standing hypertension untreated. Depending on his response to treatment, further recommendation will be made. Thank you for this consult. We will follow with you. MMARISTIDESL / IJN: [id number] /
== END | disposition home or self-care (01) ==
LOC: RADECHMAIN 14:13
PROVIDERS: ATTEND Internal Medicine
DX: I08.3 Combined rheumatic disorders of mitral, aortic and tricuspid valves (principal); I27.20 Pulmonary hypertension, unspecified; I31.3 Pericardial effusion (noninflammatory)
CPT/HCPCS: 93306

== ENCOUNTER → 2021-03-04 | Outpatient (CLI) | payer MEDICARE, OTHER ==
--- NOTE | 2021-03-04 16:15 | US ---
EXAMINATION TYPE: US venous doppler duplex UE LT DATE OF EXAM: 03/04/2021 COMPARISON: NONE. CLINICAL HISTORY: 85-year-old male R60.9 EDEMA. Left hand swelling x 3 weeks since sutures were place d in left posterior hand for laceration after fall TECHNIQUE: Grayscale, color doppler, spectral doppler imaging performed of the deep veins of the upp er extremities. SIDE PERFORMED: left FINDINGS: Left Arm: Negative for DVT. Negative for superficial vein thrombosis left upper extremity. US at nils ent's posterior hand at swelling showed multiple edema channels. IMPRESSION: No evidence for DVT within the left upper extremity. No SVT seen. Prominent subcutaneous edema along the dorsum of the hand at the site of patient's swelling.
== END | disposition home or self-care (01) ==
LOC: RADUSWWP 15:15
PROVIDERS: ATTEND Orthopaedic Surgery
DX: R60.0 Localized edema (principal)

== ENCOUNTER 2021-03-26 12:52 | Emergency (ER) | payer MEDICARE, OTHER ==
[2021-03-26 12:59] VITALS: BP 148/86; PULSE 97; RESP 16; TEMP 97.9
--- NOTE | 2021-03-26 13:28 | ED ---
General Adult HPI - General Chief complaint: Urogenital Stated complaint: Blood in Urine Time Seen by Provider: 03/26/21 12:54 Source: patient, EMS Mode of arrival: EMS Limitations: no limitations - History of Present Illness Initial comments: Dictation was produced using [employer] dictation software. please excuse any grammatical, word or spelling errors. Chief Complaint: 85-year-old male presents emergency department for hematuria History of Present Illness: 85-year-old male has past medical history of dementia, memory impairment, DVT thyroid disease. He is brought to the emergency department from [facility] home for hematuria. Patient states that he was told that he had specks of blood to his urine. Patient arrived via EMS. EMS reports that patient is here today for worsening back pain hematuria. Patient denies any complaints at the bedside. He has history of chronic back pain. He states that his back pain feels stable. Patient is a reliable historian despite being diagnosed with dementia. He is alert and oriented 4 out of 4. Patient was recently in the hospital for frequent falls and back injury. He wears a brace patient has no other complaints at this time. Denies a sensation to urinate. No dysuria The ROS documented in this emergency department record has been reviewed and confirmed by me. Those systems with pertinent positive or negative responses have been documented in the HPI. All other systems are other negative and/or noncontributory. PHYSICAL EXAM: General Impression: Alert and oriented x3, not in acute distress HEENT: Normocephalic atraumatic, extra-ocular movements intact, pupils equal and reactive to light bilaterally, mucous membranes moist. Cardiovascular: Heart regular rate and rhythm Chest: Able to complete full sentences, no retractions, no tachypnea Abdomen: abdomen soft, non-tender, non-distended, no organomegaly Musculoskeletal: Pulses present and equal in all extremities, no peripheral edema Motor: no focal deficits noted Neurological: CN II-XII grossly intact, no focal motor or sensory deficits noted Skin: Intact with no visualized rashes Psych: Normal affect and mood exam: There is some traces of blood on patient's diaper however no blood coming from the urethra, no rashes or induration ED course: 85-year-old male presents to the emergency department for hematuria. Vital signs upon arrival are within acceptable limits. Patient does take anticoagulation medications. KUB ultrasound shows bilateral renal cortical cyst no hydronephrosis. There is some bladder wall thickening suggestive of nonspecific cystitis. Urinalysis shows no signs of infection. There is trace blood with 5 red blood cells. CBC unremarkable. Metabolic panel showed mild dehydration. His glucose was 73 is given some oral intake with a repeat glucose 147. Patient reevaluated bedside findings to medical condition. Patient given outpatient referral to urology for hematuria. - Related Data Home Medications Medication Instructions Recorded Confirmed Levothyroxine Sodium [Synthroid] 50 mcg PO DAILY@0706/05/16 03/26/21 Escitalopram [Lexapro] 10 mg PO DAILY@69906/13/20 03/26/21 buPROPion [Wellbutrin] 75 mg PO DAILY@69906/13/20 03/26/21 Cholecalciferol [Vitamin D3 (125 125 mcg PO DAILY@69903/12/21 03/26/21 Mcg = 5000 Iu)] Apixaban [Eliquis] 5 mg PO BID@0700,189903/26/21 03/26/21 Atorvastatin [Lipitor] 20 mg PO DAILY@189903/26/21 03/26/21 Melatonin 6 mg PO HS@199903/26/21 03/26/21 Metoprolol Succinate [Toprol XL] 50 mg PO BID@0700,189903/26/21 03/26/21 Spironolactone [Aldactone] 25 mg PO DAILY@69903/26/21 03/26/21 lisinopriL [Zestril] 5 mg PO DAILY@0703/26/21 03/26/21 Allergies Allergy/AdvReac Type Severity Reaction Status Date / Time Penicillins Allergy Unknown Verified 03/26/21 12:59 Review of Systems ROS Statement: Those systems with pertinent positive or pertinent negative responses have been documented in the HPI. ROS Other: All systems not noted in ROS Statement are negative. Past Medical History Past Medical History: Deep Vein Thrombosis (DVT), Memory Impairment, Sleep Apnea/CPAP/BIPAP, Thyroid Disorder Additional Past Medical History / Comment(s): hx. DVT right thigh, uses CPAP, fell & fx. pelvis 2015, constipation, forehead laceration from fall off porch 06/13/20-seen in [facility]- difficulty stopping the bleeding per , has problem with balance-left leg is shorter than rt History of Any Multi-Drug Resistant Organisms: None Reported Past Surgical History: Appendectomy, Orthopedic Surgery Additional Past Surgical History / Comment(s): cervical laminectomy, vania cataract., repair left tibial and ankle fx after injury- 2011, rt shoulder reversal Past Anesthesia/Blood Transfusion Reactions: No Reported Reaction Past Psychological History: Depression Smoking Status: Never smoker Past Alcohol Use History: None Reported Past Drug Use History: None Reported - Past Family History Mother Family Medical History: No Reported History Additional Family Medical History / Comment(s): . General Exam Limitations: no limitations Course Vital Signs 03/26/21 12:53 Temperature 97.9 F Pulse Rate 97 Respiratory 16 Rate Blood Pressure 148/86 O2 Sat by Pulse 97 Oximetry Medical Decision Making - Lab Data Result diagrams: 03/26/21 13:42 03/26/21 13:42 Lab Results 03/26/21 03/26/21 03/26/21 Range/Units 13:42 13:42 15:46 WBC 6.4 (3.8-10.6) k/uL RBC 4.48 (4.30-5.90) m/uL Hgb 13.5 (13.0-17.5) gm/dL Hct 42.6 (39.0-53.0) % MCV 95.1 (80.0-100.0) fL MCH 30.2 (25.0-35.0) pg MCHC 31.8 (31.0-37.0) g/dL RDW 14.1 (11.5-15.5) % Plt Count 255 (150-450) k/uL MPV 6.7 Neutrophils % 67 % Lymphocytes % 21 % Monocytes % 6 % Eosinophils % 3 % Basophils % 0 % Neutrophils # 4.3 (1.3-7.7) k/uL Lymphocytes # 1.3 (1.0-4.8) k/uL Monocytes # 0.4 (0-1.0) k/uL Eosinophils # 0.2 (0-0.7) k/uL Basophils # 0.0 (0-0.2) k/uL Sodium 138 (137-145) mmol/L Potassium 4.7 (3.5-5.1) mmol/L Chloride 106 (98-107) mmol/L Carbon Dioxide 25 (22-30) mmol/L Anion Gap 7 mmol/L BUN 27 H (9-20) mg/dL Creatinine 0.98 (0.66-1.25) mg/dL Est GFR (CKD-EPI)AfAm 81 (>60 ml/min/1.73 sqM) Est GFR (CKD-EPI)NonAf 70 (>60 ml/min/1.73 sqM) Glucose 73 L (74-99) mg/dL POC Glucose (mg/dL) (75-99) mg/dL POC Glu Clinic Physician Director ID Calcium 8.6 (8.4-10.2) mg/dL Urine Color Light Yellow Urine Appearance Clear (Clear) Urine pH 6.5 (5.0-8.0) Ur Specific [place] 1.012 (1.001-1.035) Urine Protein Negative (Negative) Urine Glucose (UA) Negative (Negative) Urine Ketones Negative (Negative) Urine Blood Trace H (Negative) Urine Nitrite Negative (Negative) Urine Bilirubin Negative (Negative) Urine Urobilinogen <2.0 (<2.0) mg/dL Ur Leukocyte Esterase Negative (Negative) Urine RBC 5 (0-5) /hpf 03/26/21 Range/Units 17:18 WBC (3.8-10.6) k/uL RBC (4.30-5.90) m/uL Hgb (13.0-17.5) gm/dL Hct (39.0-53.0) % MCV (80.0-100.0) fL MCH (25.0-35.0) pg MCHC (31.0-37.0) g/dL RDW (11.5-15.5) % Plt Count (150-450) k/uL MPV Neutrophils % % Lymphocytes % % Monocytes % % Eosinophils % % Basophils % % Neutrophils # (1.3-7.7) k/uL Lymphocytes # (1.0-4.8) k/uL Monocytes # (0-1.0) k/uL Eosinophils # (0-0.7) k/uL Basophils # (0-0.2) k/uL Sodium (137-145) mmol/L Potassium (3.5-5.1) mmol/L Chloride (98-107) mmol/L Carbon Dioxide (22-30) mmol/L Anion Gap mmol/L BUN (9-20) mg/dL Creatinine (0.66-1.25) mg/dL Est GFR (CKD-EPI)AfAm (>60 ml/min/1.73 sqM) Est GFR (CKD-EPI)NonAf (>60 ml/min/1.73 sqM) Glucose (74-99) mg/dL POC Glucose (mg/dL) 147 H (75-99) mg/dL POC Glu Clinic Physician Director ID Sterling Cantu Calcium (8.4-10.2) mg/dL Urine Color Urine Appearance (Clear) Urine pH (5.0-8.0) Ur Specific [place] (1.001-1.035) Urine Protein (Negative) Urine Glucose (UA) (Negative) Urine Ketones (Negative) Urine Blood (Negative) Urine Nitrite (Negative) Urine Bilirubin (Negative) Urine Urobilinogen (<2.0) mg/dL Ur Leukocyte Esterase (Negative) Urine RBC (0-5) /hpf Disposition Clinical Impression: Hematuria Disposition: HOME SELF-CARE Condition: Good Instructions (If sedation given, give patient instructions): Hematuria (ED) Is patient prescribed a controlled substance at d/c from ED?: No Referrals: Beau Jones MD [Primary Care Provider] - 1-2 days Sebastien Mayen MD [STAFF PHYSICIAN] - 1-2 days
[2021-03-26 14:11] LABS: Basophils % (A) 0 %; Eosinophils # (A) 0.2 k/uL (0-0.7); Eosinophils % (A) 3 %; HCT 42.6 % (39.0-53.0); HGB 13.5 gm/dL (13.0-17.5); Lymphocytes # (A) 1.3 k/uL (1.0-4.8); Lymphocytes % (A) 21 %; MCH 30.2 pg (25.0-35.0); MCHC 31.8 g/dL (31.0-37.0); MCV 95.1 fL (80.0-100.0); Mean Platelet Volume 6.7; Monocytes # (A) 0.4 k/uL (0-1.0); Monocytes % (A) 6 %; Neutrophils # (A) 4.3 k/uL (1.3-7.7); Neutrophils % (A) 67 %; Platelet Count 255 k/uL (150-450); RBC 4.48 m/uL (4.30-5.90); RDW 14.1 % (11.5-15.5); WBC 6.4 k/uL (3.8-10.6)
[2021-03-26 14:28] LABS: Calcium 8.6 mg/dL (8.4-10.2); Potassium 4.7 mmol/L (3.5-5.1)
[2021-03-26] MEDS ORDERED: SODIUM CHLORIDE 0.9% 500 ML 500 ML IV STA (15:22)
[2021-03-26 16:19] LABS: Appearance,Urine Clear (Clear); Bilirubin,Urine Negative (Negative); Blood,Urine Trace (Negative); Color,Urine Light Yellow; Glucose,Urine (UA) Negative (Negative); Ketones,Urine Negative (Negative); Leukocyte Esterase,Urine Negative (Negative); Nitrite,Urine Negative (Negative); PH, Urine 6.5 (5.0-8.0); Protein,Urine Negative (Negative); RBC,Urine 5 /hpf (0-5); Specific Gravity,Urine 1.012 (1.001-1.035); Urobilinogen,Urine <2.0 mg/dL (<2.0)
--- NOTE | 2021-03-26 17:13 | US ---
EXAMINATION TYPE: US kidneys/renal and bladder DATE OF EXAM: 03/26/2021 COMPARISON: NONE CLINICAL HISTORY: flank pain. EXAM MEASUREMENTS: Right Kidney: 9.7 x 4.8 x 5.7 cm Left Kidney: 9.9 x 5.5 x 4.4 cm Right Kidney: septated cyst measuring 2.8 x 3.1 x 3.4cm Left Kidney: multiple cysts largest measuring 0.9 x 0.9 x 1.1cm Bladder: wall appears thickened IMPRESSION: Bilateral renal cortical cysts. No hydronephrosis. There is some bladder wall thickening suggestive o f some nonspecific cystitis.
[2021-03-26 17:19] LABS: Glucose,Whole Blood 147 mg/dL (75-99)
== END 2021-03-26 17:57 | disposition home or self-care (01) ==
LOC: EC 12:52
DX: R31.9 Hematuria, unspecified (principal); E07.9 Disorder of thyroid, unspecified; F32.A Depression, unspecified; Z79.01 Long term (current) use of anticoagulants; Z88.0 Allergy status to penicillin; Z86.718 Personal history of other venous thrombosis and embolism; Z90.49 Acquired absence of other specified parts of digestive tract
CPT/HCPCS: 36415; 76770; 80048; 81001; 85025; 99284

== ENCOUNTER 2021-04-10 10:33 | Emergency (ER) | payer MEDICARE, OTHER ==
[2021-04-10 10:50] VITALS: TEMP 97.7
[2021-04-10] MEDS ORDERED: SODIUM CHLORIDE 0.9% 500 ML 500 ML IV STA (10:56)
[2021-04-10 11:28] LABS: Basophils % (A) 0 %; Eosinophils % (A) 0 %; HCT 38.3 % (39.0-53.0); HGB 12.8 gm/dL (13.0-17.5); Lymphocytes # (A) 0.8 k/uL (1.0-4.8); Lymphocytes % (A) 20 %; MCH 31.3 pg (25.0-35.0); MCHC 33.4 g/dL (31.0-37.0); MCV 93.6 fL (80.0-100.0); Mean Platelet Volume 7.7; Monocytes # (A) 0.4 k/uL (0-1.0); Monocytes % (A) 10 %; Neutrophils # (A) 2.8 k/uL (1.3-7.7); Neutrophils % (A) 68 %; Platelet Count 201 k/uL (150-450); RBC 4.09 m/uL (4.30-5.90); RDW 13.7 % (11.5-15.5); WBC 4.1 k/uL (3.8-10.6)
--- NOTE | 2021-04-10 11:39 | XR ---
EXAMINATION TYPE: XR chest 2V DATE OF EXAM: 04/10/2021 COMPARISON: 03/12/2021 TECHNIQUE: PA and lateral views submitted. HISTORY: Weakness FINDINGS: Postsurgical change right shoulder and arthropathy left shoulder. Heart size is enlarged and there is a new left lower lobe infiltrate and small effusion. No overt failure. Interstitium similar. Suggest ion of previous rib deformities involving the left lateral rib cage. Stable. Underlying COPD suspecte d with hypertrophic and degenerative changes of the spine. IMPRESSION: 1. COPD with new left lower lobe infiltrate and small pleural effusion.
--- NOTE | 2021-04-10 11:43 | ED ---
General Adult HPI - General Chief complaint: Recheck/Abnormal Lab/Rx Stated complaint: Covid+ Time Seen by Provider: 04/10/21 10:36 Source: patient, EMS, RN notes reviewed Mode of arrival: EMS Limitations: no limitations - History of Present Illness Initial comments: This an 85-year-old male presents emergency Department with chief complaint of generalized weakness. Patient was sent from [facility] home in which they states they tested positive for COVID-19 one week ago. They state that is pulse oxing the lower today and sent him to the emergency department. Patient self states he does have a slight cough otherwise has no specific complaint. He denies chest pain denies any nausea vomiting diarrhea constipation states he does have mild shortness breath but not worse than baseline. Patient noted to have mildly low blood pressure but states she's unsure if this is normal for patient. - Related Data Home Medications Medication Instructions Recorded Confirmed Levothyroxine Sodium [Synthroid] 50 mcg PO DAILY@0706/05/16 04/10/21 Escitalopram [Lexapro] 10 mg PO DAILY@69906/13/20 04/10/21 buPROPion [Wellbutrin] 75 mg PO DAILY@69906/13/20 04/10/21 Cholecalciferol [Vitamin D3 (125 125 mcg PO DAILY@69903/12/21 04/10/21 Mcg = 5000 Iu)] Apixaban [Eliquis] 5 mg PO BID@0700,189903/26/21 04/10/21 Atorvastatin [Lipitor] 20 mg PO DAILY@189903/26/21 04/10/21 Melatonin 6 mg PO HS@199903/26/21 04/10/21 Metoprolol Succinate [Toprol XL] 50 mg PO BID@0700,189903/26/21 04/10/21 Spironolactone [Aldactone] 25 mg PO DAILY@69903/26/21 04/10/21 lisinopriL [Zestril] 5 mg PO DAILY@69903/26/21 04/10/21 Acetaminophen Tab [Tylenol Tab] 500 mg PO Q6H PRN 04/10/21 04/10/21 Ascorbic Acid [Vitamin C] 500 mg PO DAILY@69904/10/21 04/10/21 Azithromycin [Zithromax Z-pack (6 See Taper PO DIRECTED 04/10/21 04/10/21 tabs)] Lidocaine/Menthol 1 patch TOPICAL DAILY@1900 04/10/21 04/10/21 [Lidocaine-Menthol 4%-1% Patch] Sodium Chloride [Saline Nasal 2 spray EA NOSTRIL 04/10/21 04/10/21 Downing] TID@0700,1400,1900 PRN Zinc 50 mg PO DAILY@0700 04/10/21 04/10/21 guaiFENesin [Mucinex] 1,200 mg PO BID@0700,1900 04/10/21 04/10/21 Previous Rx's Medication Instructions Recorded Azithromycin [Zithromax Z-pack (6 0 mg PO DIRECTED #1 packet 04/10/21 tabs)] Dexamethasone [Decadron] 6 mg PO DAILY #10 tablet 04/10/21 Allergies Allergy/AdvReac Type Severity Reaction Status Date / Time Penicillins Allergy Unknown Verified 04/10/21 13:48 Review of Systems ROS Statement: Those systems with pertinent positive or pertinent negative responses have been documented in the HPI. ROS Other: All systems not noted in ROS Statement are negative. Past Medical History Past Medical History: Deep Vein Thrombosis (DVT), Memory Impairment, Sleep Apnea/CPAP/BIPAP, Thyroid Disorder Additional Past Medical History / Comment(s): hx. DVT right thigh, uses CPAP, fell & fx. 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 History of Any Multi-Drug Resistant Organisms: None Reported Past Surgical History: Appendectomy, Orthopedic Surgery Additional Past Surgical History / Comment(s): cervical laminectomy, vania cataract., repair left tibial and ankle fx after injury- 2011, rt shoulder reversal Past Anesthesia/Blood Transfusion Reactions: No Reported Reaction Past Psychological History: Depression Smoking Status: Never smoker Past Alcohol Use History: None Reported Past Drug Use History: None Reported - Past Family History Mother Family Medical History: No Reported History Additional Family Medical History / Comment(s): . General Exam Limitations: no limitations General appearance: alert, in no apparent distress Head exam: Present: atraumatic, normocephalic, normal inspection Eye exam: Present: normal appearance, PERRL, EOMI. Absent: scleral icterus, conjunctival injection, periorbital swelling ENT exam: Present: normal exam, normal oropharynx, mucous membranes moist Neck exam: Present: normal inspection, full ROM. Absent: tenderness, meningismus, lymphadenopathy Respiratory exam: Present: rhonchi (left lower). Absent: normal lung sounds bilaterally, respiratory distress, wheezes, rales, stridor Cardiovascular Exam: Present: regular rate, normal rhythm, normal heart sounds. Absent: systolic murmur, diastolic murmur, rubs, gallop, clicks Neurological exam: Present: alert Course Vital Signs 04/10/21 04/10/21 04/10/21 10:35 12:10 14:36 Temperature 97.7 F Pulse Rate 66 70 Respiratory 18 18 Rate Blood Pressure 78/55 104/73 122/90 O2 Sat by Pulse 95 96 Oximetry 04/10/21 14:44 Temperature Pulse Rate 79 Respiratory 16 Rate Blood Pressure 122/90 O2 Sat by Pulse 95 Oximetry Medical Decision Making - Medical Decision Making 85-year-old presented for COVID-19, possible hypoxia. Patient's had no hypoxic events in the emergency department. Patient is not requiring any oxygenation department. Patient did have mild hypertension upon arrival though multiple blood pressures after show no hypotension. Patient x-ray shows evidence of left lower lobe pneumonia though patient has COVID-19 positive. I did discuss case with his PCP Dr.Elsafy barrett in which he recommends patient be discharged on antibiotics and decadron - Lab Data Result diagrams: 04/10/21 11:13 04/10/21 11:13 Lab Results 04/10/21 04/10/21 04/10/21 Range/Units 11:13 11:13 11:13 WBC 4.1 (3.8-10.6) k/uL RBC 4.09 L (4.30-5.90) m/uL Hgb 12.8 L (13.0-17.5) gm/dL Hct 38.3 L (39.0-53.0) % MCV 93.6 (80.0-100.0) fL MCH 31.3 (25.0-35.0) pg MCHC 33.4 (31.0-37.0) g/dL RDW 13.7 (11.5-15.5) % Plt Count 201 (150-450) k/uL MPV 7.7 Neutrophils % 68 % Lymphocytes % 20 % Monocytes % 10 % Eosinophils % 0 % Basophils % 0 % Neutrophils # 2.8 (1.3-7.7) k/uL Lymphocytes # 0.8 L (1.0-4.8) k/uL Monocytes # 0.4 (0-1.0) k/uL Eosinophils # 0.0 (0-0.7) k/uL Basophils # 0.0 (0-0.2) k/uL PT (9.0-12.0) sec INR (<1.2) APTT (22.0-30.0) sec Sodium 135 L (137-145) mmol/L Potassium 4.9 (3.5-5.1) mmol/L Chloride 104 (98-107) mmol/L Carbon Dioxide 22 (22-30) mmol/L Anion Gap 9 mmol/L BUN 24 H (9-20) mg/dL Creatinine 1.08 (0.66-1.25) mg/dL Est GFR (CKD-EPI)AfAm 71 (>60 ml/min/1.73 sqM) Est GFR (CKD-EPI)NonAf 61 (>60 ml/min/1.73 sqM) Glucose 78 (74-99) mg/dL Plasma Lactic Acid Ady 1.3 (0.7-2.0) mmol/L Calcium 8.6 (8.4-10.2) mg/dL Magnesium 2.0 (1.6-2.3) mg/dL Total Bilirubin 1.0 (0.2-1.3) mg/dL AST 33 (17-59) U/L ALT 19 (4-49) U/L Alkaline Phosphatase 76 (38-126) U/L Troponin I (0.000-0.034) ng/mL Total Protein 6.1 L (6.3-8.2) g/dL Albumin 3.4 L (3.5-5.0) g/dL Coronavirus (PCR) (Not Detectd) 04/10/21 04/10/21 04/10/21 Range/Units 11:13 11:13 12:00 WBC (3.8-10.6) k/uL RBC (4.30-5.90) m/uL Hgb (13.0-17.5) gm/dL Hct (39.0-53.0) % MCV (80.0-100.0) fL MCH (25.0-35.0) pg MCHC (31.0-37.0) g/dL RDW (11.5-15.5) % Plt Count (150-450) k/uL MPV Neutrophils % % Lymphocytes % % Monocytes % % Eosinophils % % Basophils % % Neutrophils # (1.3-7.7) k/uL Lymphocytes # (1.0-4.8) k/uL Monocytes # (0-1.0) k/uL Eosinophils # (0-0.7) k/uL Basophils # (0-0.2) k/uL PT 11.6 (9.0-12.0) sec INR 1.1 (<1.2) APTT 29.4 (22.0-30.0) sec Sodium (137-145) mmol/L Potassium (3.5-5.1) mmol/L Chloride (98-107) mmol/L Carbon Dioxide (22-30) mmol/L Anion Gap mmol/L BUN (9-20) mg/dL Creatinine (0.66-1.25) mg/dL Est GFR (CKD-EPI)AfAm (>60 ml/min/1.73 sqM) Est GFR (CKD-EPI)NonAf (>60 ml/min/1.73 sqM) Glucose (74-99) mg/dL Plasma Lactic Acid Ady (0.7-2.0) mmol/L Calcium (8.4-10.2) mg/dL Magnesium (1.6-2.3) mg/dL Total Bilirubin (0.2-1.3) mg/dL AST (17-59) U/L ALT (4-49) U/L Alkaline Phosphatase (38-126) U/L Troponin I 0.014 (0.000-0.034) ng/mL Total Protein (6.3-8.2) g/dL Albumin (3.5-5.0) g/dL Coronavirus (PCR) Detected A (Not Detectd) Disposition Clinical Impression: Pneumonia due to COVID-19 virus Disposition: HOME SELF-CARE Condition: Stable Instructions (If sedation given, give patient instructions): Coronavirus Disease 2019 (COVID-19) Additional Instructions: Please return to the Emergency Department if symptoms worsen or any other concerns. Prescriptions: Dexamethasone [Decadron] 6 mg PO DAILY #10 tablet Azithromycin [Zithromax Z-pack (6 tabs)] 0 mg PO DIRECTED #1 packet Is patient prescribed a controlled substance at d/c from ED?: No Referrals: Beau Jones MD [Primary Care Provider] - 1-2 days Time of Disposition: 15:45
[2021-04-10 11:45] LABS: Albumin 3.4 g/dL (3.5-5.0); Calcium 8.6 mg/dL (8.4-10.2); Total Protein 6.1 g/dL (6.3-8.2)
[2021-04-10 12:08] LABS: Potassium 4.9 mmol/L (3.5-5.1)
[2021-04-10 12:24] LABS: INR 1.1 (<1.2); Partial Thromboplastin Time 29.4 sec (22.0-30.0); Prothrombin Time 11.6 sec (9.0-12.0)
[2021-04-10] MEDS ORDERED: SOTROVIMAB (EUA) 500 MG in SODIUM CHLORIDE 0.9% 100 ML IVPB ONE (14:00)
[2021-04-10] MEDS ORDERED: SODIUM CHLORIDE 0.9% 50 ML IVPB ONE (14:30)
[2021-04-10 14:37] VITALS: BP 122/90
[2021-04-10 14:45] VITALS: PULSE 79; RESP 16
[2021-04-10] MEDS ORDERED: cefTRIAXone IN SWFI 1,000 MG/10 ML SYRINGE IVP STA (15:38)
== END 2021-04-10 16:43 | disposition home or self-care (01) ==
LOC: EC 10:33
DX: U07.1 COVID-19 (principal); J12.82 Pneumonia due to coronavirus disease 2019; F32.A Depression, unspecified; Z79.890 Hormone replacement therapy; Z79.899 Other long term (current) drug therapy; Z79.01 Long term (current) use of anticoagulants; Z86.718 Personal history of other venous thrombosis and embolism
CPT/HCPCS: 36415; 93005; 80053; 83605; 83735; 84484; 85025; 85610; 85730; 87635; 71046; 99285; Q0247